=== PATIENT | female | born 1940 ===

== ENCOUNTER 2024-01-07 19:54 | Inpatient (IN) | payer OTHER, SELFPAY ==
[2024-01-07] VITALS (7 sets, daily range): BP systolic 119–172; BP diastolic 57–80; BMI 27.7
[2024-01-07 14:43] LABS: % Basophils 0.3 % (0-2); % Eosinophils 0.2 % (0-6); % Immature Granulocytes 0.5 % (0-0.5); % Lymphocytes 3.2 % (20.5-51.1); % Monocytes 3.7 % (1.7-9.3); % Neutrophils 92.1 % (42.2-75.2); Absolute Lymphocytes 0.3 10^3/uL (1.2-3.4); Absolute Monocytes 0.3 10^3/uL (0.1-0.6); Absolute Neutrophils 8.1 10^3/uL (1.4-6.5); Hematocrit 33.9 % (37.0-47.0); Hemoglobin 10.5 g/dL (12.0-16.0); Mean Corpuscular Hgb 25.2 pg (27.0-31.0); Mean Corpuscular Volume 81.5 fL (81.0-99.0); Mean Platelet Volume 9.2 fL (7.4-10.4); Nucleated Red Blood Cells % 0 %; Platelet Count 207 10^3/uL (130-400); Red Blood Cell Count 4.16 10^6/uL (4.20-5.40); Red Cell Dist. Width 17.2 % (11.5-14.5); White Blood Cell Count 8.8 10^3/uL (4.8-10.8)
[2024-01-07 14:52] LABS: Lactic Acid 0.5 mmol/L (0.7-2.0)
[2024-01-07 14:53] LABS: ALT (SGPT) 14 U/L (0-35); AST (SGOT) 22 U/L (14-36); Albumin 3.9 g/dl (3.5-5.0); Alkaline Phosphatase 67 U/L (38-126); Blood Urea Nitrogen 23 mg/dl (7-17); Calcium 10.4 mg/dl (8.4-10.2); Carbon Dioxide 38 mmol/L (22-30); Chloride 94 mmol/L (98-107); Glucose 119 mg/dl (70-99); Potassium 4.2 mmol/L (3.5-5.1); Sodium 138 mmol/L (135-145); Total Bilirubin 0.6 mg/dl (0.2-1.3); Total Protein 6.5 g/dl (6.3-8.2); eGFR > 60.00
--- NOTE | 2024-01-07 15:56 | ED.GENMED ---
History of Present Illness
General
Chief Complaint: Breathing Problem
Source: patient
Exam Limitations: none
Time Seen by Provider: 01/07/24 15:40
Travel History
Have you had any contact with someone who has COVID-19?: No
Do you have any symptoms of coronavirus? Fever > 100 degrees, chills, cough, shortness of breath, sore throat, loss of taste or smell, muscle aches, or headache?: No
History of Present Illness
History of Present Illness:
83-year-old female presents with increased work of breathing progressively getting worse over the past 2 to 3 weeks. She also notes leg swelling. She has a history of COPD, chronically on 2 L of oxygen, CHF, anemia. 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 She denies chest pain. No recent fever. She notes productive cough.
Phy Exam
Physical Exam
Physical Exam:
General: Somewhat ill-appearing female with slight increased work of breathing
HEENT: Normocephalic atraumatic
Heart: Tachycardic but regular
Lungs: Breath sounds distant but no obvious rales or wheeze
Abdomen: Soft nontender
Extremities: Mild edema bilateral lower extremities
Skin: Warm no rash
Scores
Heart Failure Risk
Heart Failure Risk Score: Not Applicable
Course
Orders/Labs/Results
Orders:
Orders
01/07/24 14:13
Electrocardiogram (*1) Urgent
Reason for Study: Shortness of Breath
01/07/24 14:14
EKG- Treatment ONCE
01/07/24 14:31
Complete Blood Count/With Diff Urgent
Comprehensive Metabolic Panel Urgent
Lactate Level [Lactic Acid] Urgent
Blood Culture Urgent
ERIKA Source: Blood/Venous
Specimen Description:
01/07/24 15:55
CR Chest - 2 Views Urgent
Comment:
Reason For Exam: sob
01/07/24 16:25
NT-proBNP Urgent
Troponin I Urgent
01/07/24 18:40
Azithromycin 500 mg/250 ml [Zithromax Infusion] 500 mg in 250 ml IV NOW
CefTRIAXone [Rocephin] 1,000 mg IV NOW STA
Abnormal Lab Results
01/07/24
14:31
RBC 4.16 L 10^6/uL
(4.20-5.40)
Hgb 10.5 L g/dL
(12.0-16.0)
Hct 33.9 L %
(37.0-47.0)
MCH 25.2 L pg
(27.0-31.0)
MCHC 31.0 L g/dL
(33.0-37.0)
RDW 17.2 H %
(11.5-14.5)
Absolute Neuts (auto) 8.1 H 10^3/uL
(1.4-6.5)
Absolute Lymphs (auto) 0.3 L 10^3/uL
(1.2-3.4)
Neutrophils % 92.1 H %
(42.2-75.2)
Lymphocytes % 3.2 L %
(20.5-51.1)
Chloride 94 L mmol/L
(98-107)
Carbon Dioxide 38 H mmol/L
(22-30)
BUN 23 H mg/dl
(7-17)
Glucose 119 H mg/dl
(70-99)
Lactic Acid 0.5 L mmol/L
(0.7-2.0)
Calcium 10.4 H mg/dl
(8.4-10.2)
01/07/24 14:31
01/07/24 14:31
Vital Signs
Initial and Last Documented VS:
Initial Vital Signs
Temp Pulse Resp BP Pulse Ox
98.4 F 116 20 172/80 96
01/07/24 14:08 01/07/24 14:08 01/07/24 14:08 01/07/24 14:08 01/07/24 14:08
Last Documented Vital Signs
Temp Pulse Resp BP Pulse Ox
98.4 F 98 28 119/57 96
01/07/24 14:08 01/07/24 16:30 01/07/24 16:30 01/07/24 18:00 01/07/24 18:30
MDM/Problems Addressed
Differential Diagnosis Includes:
Increased oxygen demand and increased work of breathing. Differential could include COPD flare versus CHF versus anemia versus pneumonia versus a combination of the above
Patient is requiring more oxygen than usual and is tachycardic and slightly tachypneic at rest. X-ray pending labs pending.
*Critical Care Note
Total Time (30-74mins, 75-104mins- exclusive of procedures): Not Applicable
ED Attending Note
-
Portions of this chart may have been created with voice recognition software.� Occasional wrong word or��sound alike� substitutions may have occurred due to the inherent limitations of voice recognition software.
Discharge Plan
Departure
Patient Disposition: Admit
Date of Disposition: 01/07/24
Time of Disposition: 18:58
Admit to: Telemetry
Presentation/result/management discussed w/ accepting MD/DO: Hospitalist
Discharge Problem:
Respiratory failure
Prescriptions:
No Action
aspirin [Aspir-Low] 81 MG tablet,delayed release (DR/EC)
81 mg PO DAILY
calcium carbonate 500 MG tablet
500 mg PO DAILY
bumetanide 0.5 MG tablet
0.5 mg PO DAILY
albuterol sulfate 1 PUFF HFA aerosol inhaler
1 puff inhalation R Q4HPRN PRN (Reason: wheeze)
rosuvastatin 10 MG tablet
10 mg PO QPM
melatonin-pyridoxine HCl (B6) 1 EACH tablet
0.5 ea PO HS
cholecalciferol (vitamin D3) 1,000 UNITS tablet
1,000 units PO DAILY
nebivolol [Bystolic] 5 MG tablet
5 mg PO DAILY
Prolia 60 MG/ML syringe
60 mg SQ [id number]
roflumilast [Daliresp] 500 MCG tablet
500 mcg PO DAILY
guaifenesin [Mucus Relief ER] 600 MG tablet extended release 12hr
600 mg PO Q12H
B-Complex With B-12 1 EACH tablet
1 ea PO DAILY
sertraline 25 mg Tablet
25 mg PO DAILY
Trelegy Ellipta 100-62.5-25 mcg Blister With Device
1 inh INHALATION DAILY
Referrals:
Augustin Sousa MD [Family Provider] -
Interventions
Interventions:
*Risk Screen - Suicide Last Done: 01/07/24 15:49
*General Assessment Last Done: 01/07/24 15:49
*Neglect/Abuse Screening Last Done: 01/07/24 15:49
ED- Fall Risk Assessment Last Done: 01/07/24 15:49
*ED COVID-19 Vaccine History Last Done: 01/07/24 14:08
ED- Cardiac Assessment Last Done: 01/07/24 15:49
ED- Pulmonary Assessment Last Done: 01/07/24 15:49
Discharge Date and Time
Print Language: SINGAPOREAN
[2024-01-07 17:01] LABS: NT-proBNP 513 pg/ml; Troponin I < 0.012 ng/ml
--- NOTE | 2024-01-07 19:21 | HPS.HSE ---
Family Physician
-
Family Physician: Augustin Sousa
Chief Complaint
-
SoB, need more O2
History of Present Illness
83F HX home O2 dependent COPD, essential HTN seen at ER for evaluation of SoB, increased O2 needs at home.
SoB and worsening hypoxia
- POx dropped to as low as 77 %on 2 L home concentraor
- POx 96% at ER 4L NC at ER
- worsening SoB over 2 weeks
- POS productive cough with colored yellow sputum
- associated tachycardia
- Reports b/l Leg edema
- No fever
Denied exposure or sick contact
Medical History
Past Medical History
Past Medical History: Reports COPD (home O2 4 L ), HTN and Hypercholesterolemia
Past Surgical History: Reports Other
Social History
Tobacco: Former Smoker
Alcohol: None
Drug: None
Family History
Family History: Not pertinent
Allergies / Home Medications
Allergies reflects when Allergies were last updated in [employer].
Home Medications with original date entered in [employer]
Allergy/Medication List:
Allergies
Allergy/AdvReac Type Severity Reaction Status Date / Time
Beta-Blockers Allergy Severe Shortness Verified 01/07/24 14:11
(Beta-Adrenergic Bloc of Breath
Sulfa (Sulfonamide Allergy Mild Hives Verified 01/07/24 14:11
Antibiotics)
Home Medications
albuterol sulfate 90 mcg/actuation aerosol inhaler 1 puff inhalation R Q4HPRN PRN wheeze 04/20/20
aspirin 81 mg tablet,delayed release (Aspir-Low) 81 mg PO DAILY 04/20/20
bumetanide 0.5 mg tablet 0.5 mg PO DAILY 04/20/20
calcium carbonate 500 mg PO DAILY 04/20/20
cholecalciferol (vitamin D3) 25 mcg (1,000 unit) tablet 1,000 units PO DAILY 04/20/20
denosumab 60 mg/mL subcutaneous syringe (Prolia) 60 mg SQ [id number] 04/20/20
guaifenesin 600 mg tablet, extended release 12 hr (Mucus Relief ER) 600 mg PO Q12H 04/20/20
melatonin-pyridoxine HCl (vitamin B6) 3 mg-10 mg tablet 0.5 ea PO HS 04/20/20
nebivolol 5 mg tablet (Bystolic) 5 mg PO DAILY 04/20/20
roflumilast 500 mcg tablet (Daliresp) 500 mcg PO DAILY 04/20/20
rosuvastatin 10 mg tablet 10 mg PO QPM 04/20/20
vitamins B1 2.5 mg-B2 2.5 mg-niacin 5 mg-B12 100 mcg-protease tablet (B-Complex With B-12) 1 ea PO DAILY 04/20/20
fluticasone fur. 100 mcg-umeclid 62.5 mcg-vilant 25 mcg inhalat.powder (Trelegy Ellipta) 1 inh inhalation DAILY 08/28/22
sertraline 25 mg tablet 25 mg PO DAILY 08/28/22
Review of Systems
-
Constitutional: Reports No Symptoms
EENT: Reports No Symptoms
Respiratory: Reports See HPI and Trouble Breathing
Cardiac: Reports No Symptoms
Abdomen/GI: Reports No Symptoms
: Reports No Symptoms
Musculoskeletal: Reports No Symptoms
Skin: Reports No Symptoms
Neurological: Reports No Symptoms
Endocrine: Reports No Symptoms
Hematologic/Lymphatic: Reports No Symptoms
Psych: Reports No Symptoms
Physical Exam
Vital Signs
Vital Signs
Temp Pulse Resp BP Pulse Ox
98.4 F 98 28 119/57 96
01/07/24 14:08 01/07/24 16:30 01/07/24 16:30 01/07/24 18:00 01/07/24 18:30
Physical Exam
General: Well Developed, Well Nourished, No Apparent Distress, Comfortable and Respiratory Distress (мария mild, tachypnic )
HEENT: NormoCephalic, Anicteric, Moist mucous membranes and Atraumatic
Respiratory: Non Labored Respirations; No Wheezes or Rhonchi
Cardiac: S1/S2, Regular Rhythm and Tachycardia
GI: Soft, Non Tender and Non Distended
Rectal: Deferred by Provider
Genito-urinary: Deferred by me
Skin: Warm and Dry
Neuro: AO x 3
Psych: Calm
Laboratory Results
-
01/07/24 14:31
01/07/24 14:31
Laboratory Results
Lactic Acid 0.5 mmol/L (0.7-2.0) L 01/07/24 14:31
Total Bilirubin 0.6 mg/dl (0.2-1.3) 01/07/24 14:31
AST 22 U/L (14-36) 01/07/24 14:31
ALT 14 U/L (0-35) 01/07/24 14:31
Alkaline Phosphatase 67 U/L (38-126) 01/07/24 14:31
Troponin I < 0.012 ng/ml 01/07/24 16:25
Data Reviewed
-
Diagnostic Radiology: Report Reviewed by me
Lab Data: Labs Reviewed by me
Impression/Plan
-
Reviewed VS: Afebrile tachy cardia 100s BP 125/ 68 RR 20s POX 96 on 4 L
Data
nl WCC
Hgb 10.5
Cl 94
CO2 38 - bl is 40
nl Cr eGFR > 60
NEG LA
NEG TPNI
proBNP 513
Pending PCT
CXR
Mild bibasilar opacity, unfortunately without prior study cannot differentiate acute process such as subsegmental atelectasis and/or pneumonia from chronic changes.
NO PRIOR hospitalist admission:
ASSESSMENT & PLAN
Pending Rx reconciliation
Acute on chronic hypoxic RF
Worsening baseline hypercarbia suspect chronic CO2 retension: stable MS
Suspect b/l basilar PNA
Productive cough
Ex smoker
- afebrile , nl WCC
- check Covid
- check PCT
- BCx sent
- agree with IV CFTZ and PO Z max
- Nebs PRN
- O2 to titrate POx above 93
- ABG if any altered MS
- cont all OP Meds
Essential HTN
- stable
- cont. Bystolic
HLD-
on Rosuvastatin
Depression
- on Sertraline
DVT Px: LMWH
Code: full
IP MS
[2024-01-07] MEDS: ZITHROMAX INFUSION 250 IV (19:22)
[2024-01-07] MEDS: ROCEPHIN 1000 MG IV (19:23)
[2024-01-07 20:38] LABS: COVID-19 Antigen Negative (Negative)
[2024-01-07 20:45] LABS: Procalcitonin < 0.05 ng/ml (0.0-0.25)
[2024-01-07] MEDS: MUCINEX 600 MG PO (21:46)
[2024-01-07] MEDS: CRESTOR 10 MG PO (22:48)
[2024-01-07] MEDS: DUONEB 3 ML INH (23:33)
[2024-01-08] MEDS: TESSALON PERLES 100 MG PO (02:02)
[2024-01-08 06:00] VITALS: BMI 27.5
[2024-01-08 07:00] VITALS: BP 165/83
[2024-01-08 07:17] LABS: % Eosinophils 1.6 % (0-6); % Immature Granulocytes 0.2 % (0-0.5); % Lymphocytes 14.3 % (20.5-51.1); % Monocytes 8.8 % (1.7-9.3); % Neutrophils 74.1 % (42.2-75.2); Absolute Basophils 0.1 10^3/uL (0-0.2); Absolute Eosinophils 0.1 10^3/uL (0-0.7); Absolute Lymphocytes 0.7 10^3/uL (1.2-3.4); Absolute Monocytes 0.4 10^3/uL (0.1-0.6); Absolute Neutrophils 3.6 10^3/uL (1.4-6.5); Hematocrit 29.5 % (37.0-47.0); Hemoglobin 9.3 g/dL (12.0-16.0); Mean Corp Hgb Conc. 31.5 g/dL (33.0-37.0); Mean Corpuscular Hgb 26.1 pg (27.0-31.0); Mean Corpuscular Volume 82.6 fL (81.0-99.0); Nucleated Red Blood Cells % 0 %; Red Blood Cell Count 3.57 10^6/uL (4.20-5.40); White Blood Cell Count 4.9 10^3/uL (4.8-10.8)
--- NOTE | 2024-01-08 07:23 | PTCARENOTE ---
Patient arrived on unit @2049 via stretcher from ED, ambulate from stretcher to bed. Patient AAOx3, denies any pain or discomfort, KEBEDE, 4LO2 via nsal cannula. Skin assessment completed, oriented to unit, call srivastava within reach.
[2024-01-08] MEDS: SPIRIVA RESPIMAT 2.5 MCG 2 PUFF INH (07:27)
[2024-01-08] MEDS: SYMBICORT 80/4.5 MCG INHALER 2 PUFF INH ×2 (07:27→19:25)
[2024-01-08 07:50] LABS: Blood Urea Nitrogen 23 mg/dl (7-17); Calcium 9.3 mg/dl (8.4-10.2); Carbon Dioxide 30 mmol/L (22-30); Chloride 102 mmol/L (98-107); Estimated Creatinine Clearance 72 ml/min; Glucose 93 mg/dl (70-99); Potassium 4.8 mmol/L (3.5-5.1); Sodium 139 mmol/L (135-145); eGFR > 60.00
[2024-01-08] MEDS: ZOLOFT 25 MG PO (08:13)
[2024-01-08] MEDS: ASPIR LOW (ENTERIC COATED) 81 MG PO (08:13)
[2024-01-08] MEDS: MUCINEX 600 MG PO ×2 (08:13→21:26)
[2024-01-08] MEDS: TYLENOL 650 MG PO (08:13)
[2024-01-08] MEDS: BYSTOLIC 5 MG PO (08:14)
[2024-01-08] MEDS: BUMEX 0.5 MG PO (08:15)
[2024-01-08 09:54] VITALS: BP 127/56; PULSE 81; O2SAT 96
--- NOTE | 2024-01-08 10:03 | CON.PUL ---
Consultation
Consultation Request
Date/Time Consultation Requested: 01/08/2024-8 AM
Date/Time Consultation Performed: 01/08/2024-8:15 AM
Requesting Provider: Hospitalist
Performing Provider: Dr. Arroyo
Reason for Consultation: Shortness of breath
Medical History
-
Chief Complaint: Shortness of breath
History of Present Illness:
83-year-old female with underlying severe COPD followed by Dr. Maza presented with increasing shortness of breath and COPD exacerbation-pulmonary consulted for COPD exacerbation 01/08/2024. She does report feeling somewhat better than
yesterday. She is chronically on 2.5 L of oxygen and 4 L with exertion. She has significant dyspnea exertion, wheezing, chest congestion, productive cough, and offers no complaints of reflux, hemoptysis, abdominal pain, nausea, vomiting or
increasing lower extremity swelling.
Past Medical History
Past Medical History: None (COPD-oxygen dependent-suspect Gold stage IV. Former pnnfxe-28-cezk-year quit 50 years old. Hypertension. Hyperlipidemia.)
Social History
Tobacco: Former Smoker (00-lfgd-agrp-2 packs a day for 30 years-quit 50 years old)
Alcohol: None
Drug: None
Living: With Family
Occupational Exposures: No known asbestos exposure
Environmental Exposures: No known tuberculosis exposure
Family History
Family History: Reviewed & Not Pertinent
Allergies / Home Medications
Allergies
Allergy/AdvReac Type Severity Reaction Status Date / Time
Beta-Blockers Allergy Shortness Verified 01/07/24 20:55
(Beta-Adrenergic Bloc of Breath
Sulfa (Sulfonamide Allergy Hives Verified 01/07/24 20:55
Antibiotics)
Home Medications
�Medication �Instructions �Recorded �Confirmed �Last Taken �Type
albuterol sulfate 90 mcg/actuation 2 puff inhalation R QIDPRN PRN 04/20/20 01/07/24 Unknown History
aerosol inhaler sob/wheeze
denosumab 60 mg/mL subcutaneous 60 mg SQ [id number] 04/20/20 01/07/24 1 Week Ago History
syringe (Prolia) ~12/31/23
guaifenesin 600 mg tablet, 600 mg PO QPM 04/20/20 01/07/24 01/06/24 History
extended release 12 hr (Mucus
Relief ER)
nebivolol 5 mg tablet (Bystolic) 5 mg PO DAILY 04/20/20 01/07/24 01/07/24 History
roflumilast 500 mcg tablet 500 mcg PO DAILY 04/20/20 01/07/24 01/07/24 History
(Daliresp)
rosuvastatin 10 mg tablet 10 mg PO QPM 04/20/20 01/07/24 01/06/24 History
fluticasone fur. 100 mcg-umeclid 1 inh inhalation R DAILY 08/28/22 01/07/24 01/07/24 History
62.5 mcg-vilant 25 mcg
inhalat.powder (Trelegy Ellipta)
sertraline 25 mg tablet 25 mg PO DAILY 08/28/22 01/07/24 01/07/24 History
albuterol sulfate 2.5 mg/3 mL 2.5 mg inhalation R BID@0700,1500 01/07/24 01/07/24 01/07/24 History
(0.083 %) solution for nebulization
aspirin 81 mg tablet,delayed 81 mg PO DAILY 01/07/24 01/07/24 01/07/24 History
release
bumetanide 1 mg tablet 0.5 mg PO DAILY 01/07/24 01/07/24 01/07/24 History
cyanocobalamin (vitamin B-12) 2,500 mcg PO DAILY 01/07/24 01/07/24 01/07/24 History
2,500 mcg sublingual tablet
(Vitamin B-12)
guaifenesin 600 mg tablet, 1,200 mg PO DAILY 01/07/24 01/07/24 01/07/24 History
extended release 12 hr (Mucinex)
melatonin 0.5 tab PO HS 01/07/24 01/07/24 01/06/24 History
prednisone 10 mg tablet 10 mg PO DAILY 01/07/24 01/07/24 01/07/24 History
Review of Systems
-
Unable to Obtain full review of systems at this time due to: Other (Per HPI)
Vitals / Labs / Diagnostic Testing
Vital Signs
Temp Pulse Resp BP Pulse Ox
98.0 F 98 18 165/83 99
01/08/24 07:00 01/08/24 08:15 01/08/24 07:32 01/08/24 08:15 01/08/24 07:32
Lab Data
01/08/24 06:17
01/08/24 06:17
Microbiology
01/07/24 20:06 Nasal Swab Influenza Types A & B (VIANNEY) - Final
Negative for Influenza A & B, NAAT
Negative results must be combined with clinical observations
and patient history.
Nucleic Acid Amplification test (NAAT)performed on the
[employer] platform.
Diagnostic Testing:
Physical Exam
-
Exam:
Well-nourished and well-developed in no apparent distress
HEENT-atraumatic, normocephalic
Neck-supple, no JVD, no bruit
Heart regular with systolic murmur
Chest with diminished breath sounds, hyperinflation, prolonged expiratory time, expiratory wheezes and rare basilar crackle
Back-no tenderness
Abdomen-soft, nontender, nondistended, no hepatosplenomegaly
Extremities-no cyanosis, clubbing, trace lower extremity edema
Integument-intact, no rashes, lesions or ecchymosis
Neurology-alert and oriented, nonfocal motor and sensory exam
Assessment
-
83-year-old female with underlying severe COPD followed by Dr. Maza presented with increasing shortness of breath and COPD exacerbation-pulmonary consulted for COPD exacerbation 01/08/2024.
Assessment
Shortness of breath related to COPD with acute exacerbation
COPD-Gold stage IV, oxygen dependent with acute exacerbation
Qewgwo-bgedpnderh-bupexgolmt 9.3
Bronchitis-procalcitonin negative
Conditions present prior to admission:
COPD-oxygen dependent-suspect Gold stage IV.
Former atnwnu-89-genj-year quit 50 years old.
Hypertension.
Hyperlipidemia.
Plan
Patient requires admission for severe COPD exacerbation
Supplemental oxygen as needed
Consider ABG
BiPAP if needed
High flow oxygen if appropriate
Duonebs
Symbicort and Spiriva initiated
Pulmicort nebulizers
Mucolytic's
Decadron
Incentive spirometry
Acapella
Consider vest if difficulties mobilizing secretions
Consider chest physiotherapy if difficulties mobilizing secretions
Check cultures
Empiric antibiotics if acute bacterial bronchitis or acute bacterial lower respiratory tree infection is suspected-azithromycin and ceftriaxone initiated
Procalcitonin negative
Monitor leukocytosis
Follow hemoglobin
Transfuse as needed
Heme test stools
Monitor blood sugars
Insulin supplementation as needed
DVT prophylaxis recommended-on Lovenox
GI prophylaxis recommended if on steroids for prolonged period
Early nutrition
Early mobilization
Reviewed with nursing and primary team
Outpatient pulmonary vrtrxr-bm-uheniadyx follows with Dr. Maza-will be retiring-maintained on nebulizers, Trelegy, oxygen 2.5 L rest, 4 L exertion, has POC-would like transfer care locally
Suspect patient has COPD/asthma overlap-May be a candidate for Biologics such as Dupixent
Diagnostic data:
Chest x-ray 01/07/2024-mild bibasilar opacifications subsegmental atelectasis or pneumonia
Data Reviewed
-
EKG: Report reviewed by me
Radiology: Image personally visualized and interpreted and Report reviewed by me
Medical Tests (Nuc Med, Echo etc): Report reviewed by me
Labs: Labs reviewed by me
Old Records: Reviewed
Total Time Spent with Patient (in minutes): 65
--- NOTE | 2024-01-08 10:38 | W.PN.HOSP.TC ---
Today's Communication/Plan
-
.
Assessment / Plan
Assessment / Plan
Physical Exam
General: Not in distress, on nasal O2
HEENT: Normocephalic, Anicteric, Moist mucous membranes and Atraumatic
Respiratory: limited with some rhonchi
Cardiac: S1/S2,
GI: Soft, Non Tender and Non Distended
Rectal: No rectal bleeding
Genito-urinary: No Turcios
Skin: Warm and Dry
Neuro: AO x 3, she followed commands
Psych: Calm
Acute on chronic hypoxic RF with higher O2 need due to acute COPD exacerbation/ COPD-Gold stage IV, oxygen dependent
Productive cough
Ex smoker
- afebrile , nl WCC
- Negative Covid & flu
- Chest x ray on admission c/w Mild bibasilar opacity
- BCx are pending
- Start IV steroid , titrate down O2 need as tolerated.
- Short course of IV CFTZ and PO Z max
- Nebs PRN
- O2 to titrate POx above 93
- Appreciate pulmonary input
# Headache
No blurred vision, likely tension type
will give Tylenol
# Hypercalcemia, resolved.
#Essential HTN
- Uncontrolled
will increase nebivolol
#HLD-
on Rosuvastatin
# Depression
- on Sertraline
# Zzmjqx-qmymxibcvq-yavwvyuazp 9.3
# hx of Bronchitis-procalcitonin negative
Total time spent to see the patient, examine the patient on the floor, review data and lab results, discuss treatment plan with patient, daughter, nursing staff around 55 minutes
Anticipated Discharge: > 48 hours
Subjective/Interval History
-
Date of Service: January 08, 2024
Feels headache this morning, she did not sleep well due to noise from her roommate
No chest pain
Still same sob
Objective Data
-
Labs:
Laboratory Results
01/08/24
06:17
WBC 4.9
Hgb 9.3 L
Hct 29.5 L
Plt Count
Sodium 139
Potassium 4.8
Chloride 102
Carbon Dioxide 30
BUN 23 H
Creatinine 0.6
Glucose 93
Calcium 9.3
Vital Signs:
Vital Signs
Temp Pulse Resp BP Pulse Ox
98.0 F 98 18 165/83 99
01/08/24 07:00 01/08/24 08:15 01/08/24 07:32 01/08/24 08:15 01/08/24 07:32
I&O
01/07/24 01/08/24 01/09/24
06:59 06:59 06:59
Intake Total 480 / 480
Balance 480 / 480
[2024-01-08] MEDS: DECADRON 4 MG IV ×2 (11:52→18:02)
--- NOTE | 2024-01-08 12:23 | CM ---
Reviewed chart, met with patient to obtain information for assessment. Patient stated that she lives in [facility] level [facility] with one step to enter. She lives with her spouse. She described herself as in need of supervision with all ADLs, personal care,
dressing, bathing and toileting. Her spouse assists with her dressing at times. He supervises her. She and spouse take turns doing the cooking, cleaning, laundry and prescription benefit specialist.
Patient denied any other DME besides the walker.
She stated that she has VN services but it was not clear if she is current as she stated that they come out sporadically. She relayed that the agency was, [facility].
Patient has been to rehab in the past at [facility]. She denied wanting to go to a SNF post this admission.
Patient has a prescription plan and uses, [facility] in [place] for all of her medications.
Her PCP is, Dr. Sousa.
Plan: Case management will continue to follow and assist with discharge planning. Patient would like to return home when stable for discharge.
[2024-01-08 14:34] VITALS: BP 109/74
[2024-01-08] MEDS: CRESTOR 10 MG PO (17:56)
[2024-01-08] MEDS: LOVENOX 40 MG SC (17:56)
[2024-01-08] MEDS: DUONEB 3 ML INH (18:14)
[2024-01-08] MEDS: STERILE WATER FOR INJECTION 10 ML IV (19:50)
[2024-01-08] MEDS: ROCEPHIN 1000 MG IV (19:50)
[2024-01-08] MEDS: ZITHROMAX 500 MG PO (19:50)
[2024-01-08 23:20] VITALS: BP 122/67
[2024-01-09] MEDS: DECADRON 4 MG IV ×3 (03:19→19:51)
[2024-01-09 06:00] VITALS: BMI 27.5
[2024-01-09 07:00] VITALS: BP 124/59
[2024-01-09] MEDS: BUMEX 0.5 MG PO (08:41)
[2024-01-09] MEDS: ZOLOFT 25 MG PO (08:41)
[2024-01-09] MEDS: BYSTOLIC 5 MG PO (08:41)
[2024-01-09] MEDS: ASPIR LOW (ENTERIC COATED) 81 MG PO (08:41)
[2024-01-09] MEDS: SYMBICORT 80/4.5 MCG INHALER 2 PUFF INH (08:49)
[2024-01-09] MEDS: SPIRIVA RESPIMAT 2.5 MCG 2 PUFF INH (08:49)
--- NOTE | 2024-01-09 09:11 | W.PN.HOSP.TC ---
Today's Communication/Plan
-
Possible dc over the weekend
Assessment / Plan
Assessment / Plan
Physical Exam
General: Not in distress, on nasal O2
HEENT: Normocephalic, Anicteric, Moist mucous membranes and Atraumatic
Respiratory: limited with less rhonchi. I did not hear wheezes.
Cardiac: S1/S2,
GI: Soft, Non Tender and Non Distended
Rectal: No rectal bleeding
Genito-urinary: No Turcios
Skin: Warm and Dry
Neuro: AO x 3, she followed commands
Psych: Calm
Acute on chronic hypoxic RF with higher O2 need due to acute COPD exacerbation/ COPD-Gold stage IV, oxygen dependent
Productive cough
Ex smoker
- afebrile , nl WCC
- Negative Covid & flu
- Chest x ray on admission c/w Mild bibasilar opacity
- BCx are pending
- Start IV steroid , titrate down O2 need as tolerated.
- Short course of IV CFTZ and PO Z max
- Nebs PRN , Stop Symbicort & Spiriva, change breathing regimen to Pulmicort and DuoNeb Neb ATC . Pt not sure she could handle doing the inhalation technique well at home. She will benefit from Neb at home, will dc on DuoNeb
- O2 to titrate POx above 93
- Appreciate pulmonary input
# Headache
resolved.
# Hypercalcemia, resolved.
#Essential HTN
- Better controlled, keep same dose of Nebivolol
#HLD-
on Rosuvastatin
# Depression
- on Sertraline
# Uccswq-gpnpybmatt-mzfdysbmso 9.3
# hx of Bronchitis-procalcitonin negative
Total time spent to see the patient, examine the patient on the floor, review data and lab results, discuss treatment plan with patient, daughter, nursing staff around 55 minutes
Anticipated Discharge: 24 - 48 hours
Subjective/Interval History
-
Date of Service: January 09, 2024
She feels better today
Less cough and sob
Objective Data
-
Vital Signs:
Vital Signs
Temp Pulse Resp BP Pulse Ox
97.9 F 77 17 124/59 96
01/09/24 07:00 01/09/24 07:00 01/09/24 07:00 01/09/24 07:00 01/09/24 07:00
I&O
01/08/24 01/09/24 01/10/24
06:59 06:59 06:59
Intake Total 480 / 480 760 / 760
Balance 480 / 480 760 / 760
--- NOTE | 2024-01-09 09:55 | W.PN.PUL.V3 ---
Today's Communication / Plan
-
.
Wean oxygen.
Increase activity.
Decrease Decadron
Assessment
-
83-year-old female with underlying severe COPD followed by Dr. Maza presented with increasing shortness of breath and COPD exacerbation-pulmonary consulted for COPD exacerbation 01/08/2024.
Assessment
Shortness of breath related to COPD with acute exacerbation
COPD-Gold stage IV, oxygen dependent with acute exacerbation
Tscptx-kyvvxngnkb-vsdjxmtfqz 9.3
Bronchitis-procalcitonin negative
Conditions present prior to admission:
COPD-oxygen dependent-suspect Gold stage IV.
Former cyuyvc-99-crdo-year quit 50 years old.
Hypertension.
Hyperlipidemia.
Plan
Overall, her pulmonary status has improved
Supplemental oxygen as needed.
Has not needed a bipap
Duonebs
Symbicort and Spiriva initiated
Pulmicort nebulizers
Mucolytic's
Decadron-decreased to 4 mg IV every 12 hours-Consider changing to prednisone tomorrow
Incentive spirometry
Acapella
Consider vest if difficulties mobilizing secretions
Consider chest physiotherapy if difficulties mobilizing secretions
Check cultures-unable to produce sputum
Empiric antibiotics if acute bacterial bronchitis or acute bacterial lower respiratory tree infection is suspected-azithromycin and ceftriaxone initiated
Procalcitonin negative
Monitor leukocytosis
Follow hemoglobin-Currently 9.3
Transfuse as needed
Heme test stools
Monitor blood sugars
Insulin supplementation as needed
DVT prophylaxis recommended-on Lovenox
GI prophylaxis recommended if on steroids for prolonged period
Early nutrition
Early mobilization
Reviewed with nursing and primary team
Outpatient pulmonary wdjqhi-qy-fjvnbygus follows with Dr. Maza-will be retiring-maintained on nebulizers, Trelegy, oxygen 2.5 L rest, 4 L exertion, has POC-would like transfer care locally
Suspect patient has COPD/asthma overlap-May be a candidate for Biologics such as Dupixent
Diagnostic data:
Chest x-ray 01/07/2024-mild bibasilar opacifications subsegmental atelectasis or pneumonia
Subjective Data
-
Date of Service:
Date of Service: January 09, 2024
Chief Complaint: Pulmonary Follow Up and Dyspnea Follow Up
Subjective:
Overall feels better, less shortness of breath with exertion, less wheezing, no cough, chest pain or abdominal pain
Review of Systems
General: Other ( per HPI)
Objective Data
Data Reviewed
Vital Signs / I&O:
Vital Signs
Temp Pulse Resp BP Pulse Ox
97.9 F 86 16 124/59 95
01/09/24 07:00 01/09/24 08:49 01/09/24 08:49 01/09/24 07:00 01/09/24 08:49
Intake and Output
01/08/24 01/09/24 01/10/24
06:59 06:59 06:59
Intake Total 480 / 480 760 / 760
Balance 480 / 480 760 / 760
SaO2: 95
Nasal Cannula flow liters per minute: 4
Physical Exam
General: Respiratory Distress (n) and Comfortable
HEENT: Normocephalic, Anicteric and Moist Mucous Membranes
Cardiovascular: Regular Rhythm and Murmur
Respiratory: Clear ( prolonged expiratory time and overall diminished breath sounds), Wheeze ( forced expiratory), Crackles (n), Non-Labored Respirations, Accessory Resp Muscle Use (n) and Stridor (n)
GI: Soft, Non Distended and Non Tender
Neurology: Awake, Alert and No Motor Deficits
Skin: Warm, Good Color, Cyanosis (n) and Jaundice (n)
Labs/Micro/Reports
Lab Data
01/08/24 06:17
01/08/24 06:17
Microbiology
01/08/24 06:17 Nose MRSA Screen - Final
No Methicillin Resistant Staphylococcus aureus isolated.
01/07/24 14:31 Blood/Venous Blood Culture - Preliminary
No Growth in 24 hours- Final report to follow
01/07/24 20:06 Nasal Swab Influenza Types A & B (VIANNEY) - Final
Negative for Influenza A & B, NAAT
Negative results must be combined with clinical observations
and patient history.
Nucleic Acid Amplification test (NAAT)performed on the
[employer] platform.
[2024-01-09] MEDS: MUCINEX 600 MG PO ×2 (10:07→20:55)
[2024-01-09] MEDS: DUONEB 3 ML INH ×3 (11:18→20:04)
[2024-01-09 15:00] VITALS: BP 123/59
[2024-01-09 16:32] VITALS: BP 123/59; PULSE 71; O2SAT 96
[2024-01-09] MEDS: CRESTOR 10 MG PO (17:28)
[2024-01-09] MEDS: LOVENOX 40 MG SC (17:28)
[2024-01-09] MEDS: ROCEPHIN 1000 MG IV (19:51)
[2024-01-09] MEDS: ZITHROMAX 500 MG PO (19:51)
[2024-01-09] MEDS: STERILE WATER FOR INJECTION 10 ML IV (19:52)
[2024-01-09] MEDS: PULMICORT 0.5 MG INH (20:04)
[2024-01-09 23:09] VITALS: BP 113/51
[2024-01-10 06:00] VITALS: BMI 27.7
[2024-01-10 07:15] VITALS: BP 149/69
[2024-01-10] MEDS: DUONEB 3 ML INH ×4 (08:08→19:36)
[2024-01-10] MEDS: PULMICORT 0.5 MG INH ×2 (08:08→19:36)
[2024-01-10] MEDS: ZOLOFT 25 MG PO (08:32)
[2024-01-10] MEDS: PROTONIX 40 MG PO (08:32)
[2024-01-10] MEDS: BUMEX 0.5 MG PO (08:32)
[2024-01-10] MEDS: BYSTOLIC 5 MG PO (08:32)
[2024-01-10] MEDS: ASPIR LOW (ENTERIC COATED) 81 MG PO (08:33)
[2024-01-10] MEDS: DECADRON 4 MG IV (08:33)
--- NOTE | 2024-01-10 10:55 | W.PN.HOSP.TC ---
Today's Communication/Plan
-
dc planning
Assessment / Plan
Assessment / Plan
Physical Exam
General: Not in distress, on nasal O2
HEENT: Normocephalic, Anicteric, Moist mucous membranes and Atraumatic
Respiratory: limited with less rhonchi. I did not hear wheezes.
Cardiac: S1/S2,
GI: Soft, Non Tender and Non Distended
Rectal: No rectal bleeding
Genito-urinary: No Turcios
Skin: Warm and Dry
Neuro: AO x 3, she followed commands
Psych: Calm
Acute on chronic hypoxic RF with higher O2 need due to acute COPD exacerbation/ COPD-Gold stage IV, oxygen dependent
Productive cough
Ex smoker
- afebrile , nl WCC
- Negative Covid & flu
- Chest x ray on admission c/w Mild bibasilar opacity
- BCx are pending
- Started IV steroid , change to BID
- Short course of IV CFTZ and PO Z max
- Nebs PRN , Stopped Symbicort & Spiriva, changed breathing regimen to Pulmicort and DuoNeb Neb ATC . Pt not sure she could handle doing the inhalation technique well at home. She will benefit from Neb at home, will dc on DuoNeb
- O2 to titrate POx above 93
- Appreciate pulmonary input
# Headache
resolved.
# Hypercalcemia, resolved.
#Essential HTN
- Better controlled, keep same dose of Nebivolol
#HLD-
on Rosuvastatin
# Depression
- on Sertraline
# Dedeqz-yjywpxbjyk-fukxheubvu 9.3
# hx of Bronchitis-procalcitonin negative
Total time spent to see the patient, examine the patient on the floor, review data and lab results, discuss treatment plan with patient, daughter, nursing staff around 57 minutes
Anticipated Discharge: Within 24 hours
Subjective/Interval History
-
Date of Service: January 10, 2024
She feels better
Objective Data
-
Vital Signs:
Vital Signs
Temp Pulse Resp BP Pulse Ox
97.6 F 73 18 149/69 99
01/10/24 07:15 01/10/24 07:15 01/10/24 07:15 01/10/24 07:15 01/10/24 07:15
I&O
01/09/24 01/10/24 01/11/24
06:59 06:59 06:59
Intake Total 760 / 760 600 / 600
Balance 760 / 760 600 / 600
[2024-01-10] MEDS: MUCINEX 600 MG PO ×2 (11:15→20:50)
[2024-01-10 15:20] VITALS: BP 129/68
--- NOTE | 2024-01-10 16:00 | W.PN.PUL3 ---
Today's Communication / Plan
-
Continue nebulizer therapy while in the hospital
Transition to prednisone
If cultures remain negative, transition to oral antibiotics tomorrow
Physical therapy as tolerated
Continue oxygen supplementation
Assessment
-
83-year-old female with underlying severe COPD followed by Dr. Maza presented with increasing shortness of breath and COPD exacerbation-pulmonary consulted for COPD exacerbation 01/08/2024.
Assessment
Shortness of breath related to COPD with acute exacerbation
COPD-Gold stage IV, oxygen dependent with acute exacerbation
Mxmeeh-plefqumtpv-griodakbow 9.3
Bronchitis-procalcitonin negative
Conditions present prior to admission:
COPD-oxygen dependent-suspect Gold stage IV.
Former juonno-40-hfuu-year quit 50 years old.
Hypertension.
Hyperlipidemia.
Plan
Slowly improving. Continues to have minimal expiratory wheezing.
Oxygen supplementation at baseline
Patient significantly deconditioned.
Supplemental oxygen as needed.
Continue nebulizer-DuoNeb/Pulmicort.
Usually on Trelegy in outpx
-
Mucolytic's
Discontinue Decadron 01/10/2024. Transition to prednisone 40 mg taper by 10 mg every 72 hours to off.
Incentive spirometry
Acapella
-
Check cultures-unable to produce sputum
Empiric antibiotics if acute bacterial bronchitis or acute bacterial lower respiratory tree infection is suspected-azithromycin and ceftriaxone initiated
If all cultures negative, may complete a course of azithromycin for 5 days.
Procalcitonin negative
Follow hemoglobin-Currently 9.3
Transfuse as needed
Heme test stools
Monitor blood sugars, particularly on high-dose of steroids.
Insulin supplementation as needed
Significantly deconditioned: Continue physical therapy and Occupational Therapy.
DVT prophylaxis recommended-on Lovenox
GI prophylaxis recommended if on steroids for prolonged period
Reviewed with nursing and primary team
Outpatient pulmonary jodsuz-mx-kalvehycq follows with Dr. Maza-will be retiring-maintained on nebulizers, Trelegy, oxygen 2.5 L rest, 4 L exertion, has POC-would like transfer care locally
Suspect patient has COPD/asthma overlap-May be a candidate for Biologics such as Dupixent

Diagnostic data:
Chest x-ray 01/07/2024-mild bibasilar opacifications subsegmental atelectasis or pneumonia
Subjective Data
-
Date of Service:
Date of Service: January 10, 2024
Chief Complaint: Pulmonary Follow Up and Dyspnea Follow Up
Subjective:
Feels better.
Patient feels significantly debilitated
Occasional cough and phlegm production.
Denies hemoptysis.
Review of Systems
Cardiopulmonary: Dyspnea, Dyspnea on Exertion and Cough
GI: Abdominal Pain (n) and Nausea (n)
Objective Data
Data Reviewed
Vital Signs / I&O / Oxygen:
Vital Signs
Temp Pulse Resp BP Pulse Ox
97.6 F 82 15 149/69 91
01/10/24 07:15 01/10/24 15:26 01/10/24 15:26 01/10/24 07:15 01/10/24 15:26
Intake and Output
01/09/24 01/10/24 01/11/24
06:59 06:59 06:59
Intake Total 760 / 760 600 / 600
Balance 760 / 760 600 / 600
SaO2 91
Nasal Cannula flow liters per 2
minute
Physical Exam
General: Respiratory Distress (n), Comfortable and Other ( Able to speak in full sentences)
HEENT: Normocephalic, Anicteric and Moist Mucous Membranes
Cardiovascular: Regular Rhythm and Murmur
Respiratory: Clear ( prolonged expiratory time and overall diminished breath sounds), Wheeze ( forced expiratory), Crackles (n), Non-Labored Respirations, Accessory Resp Muscle Use (n) and Stridor (n)
GI: Soft, Non Distended and Non Tender
Neurology: Awake, Alert and No Motor Deficits
Skin: Warm, Good Color, Cyanosis (n) and Jaundice (n)
Labs/Micro/Reports
Lab Data
01/08/24 06:17
01/08/24 06:17
Microbiology
01/07/24 14:31 Blood/Venous Blood Culture - Preliminary
No Growth in 72 hours- Final report to follow
01/08/24 06:17 Nose MRSA Screen - Final
No Methicillin Resistant Staphylococcus aureus isolated.
01/07/24 20:06 Nasal Swab Influenza Types A & B (VIANNEY) - Final
Negative for Influenza A & B, NAAT
Negative results must be combined with clinical observations
and patient history.
Nucleic Acid Amplification test (NAAT)performed on the
[employer] platform.
[2024-01-10 16:02] VITALS: PULSE 85; O2SAT 92
[2024-01-10] MEDS: LOVENOX 40 MG SC (17:47)
[2024-01-10] MEDS: CRESTOR 10 MG PO (17:48)
[2024-01-10] MEDS: ZITHROMAX 500 MG PO (20:50)
[2024-01-10] MEDS: ROCEPHIN 1000 MG IV (20:50)
[2024-01-10] MEDS: STERILE WATER FOR INJECTION 10 ML IV (20:50)
[2024-01-10 23:10] VITALS: BP 145/68
[2024-01-11 06:00] VITALS: BMI 27.8
[2024-01-11 07:00] VITALS: BP 104/59
[2024-01-11] MEDS: PULMICORT 0.5 MG INH ×2 (08:17→19:35)
[2024-01-11] MEDS: DUONEB 3 ML INH ×4 (08:17→19:35)
[2024-01-11] MEDS: DELTASONE 40 MG PO (09:02)
[2024-01-11] MEDS: BUMEX 0.5 MG PO (09:03)
[2024-01-11] MEDS: OMNICEF 300 MG PO ×2 (09:03→21:02)
[2024-01-11] MEDS: PROTONIX 40 MG PO (09:03)
[2024-01-11] MEDS: MUCINEX 600 MG PO ×2 (09:03→21:02)
[2024-01-11] MEDS: BYSTOLIC 5 MG PO (09:03)
[2024-01-11] MEDS: ZOLOFT 25 MG PO (09:04)
[2024-01-11] MEDS: ASPIR LOW (ENTERIC COATED) 81 MG PO (09:04)
[2024-01-11 09:48] VITALS: PULSE 98; O2SAT 96
[2024-01-11 10:35] VITALS: PULSE 98; O2SAT 96
--- NOTE | 2024-01-11 12:42 | W.PN.HOSP.TC ---
Today's Communication/Plan
-
dc planning
Assessment / Plan
Assessment / Plan
Physical Exam
General: Not in distress, on nasal O2
HEENT: Normocephalic, Anicteric, Moist mucous membranes and Atraumatic
Respiratory: limited with less rhonchi. I did not hear wheezes.
Cardiac: S1/S2,
GI: Soft, Non Tender and Non Distended
Rectal: No rectal bleeding
Genito-urinary: No Turcios
Skin: Warm and Dry
Neuro: AO x 3, she followed commands
Psych: Calm
Acute on chronic hypoxic RF with higher O2 need due to acute COPD exacerbation/ COPD-Gold stage IV, oxygen dependent
Productive cough
Ex smoker
She is doing better. She reports less cough.
- afebrile , nl WCC
- Negative Covid & flu
- BCx are no growth.
- Started IV steroid , changed to oral.
-She did ambulatory oxygen testing and seems to be doing well and less need for oxygen as reported
- Short course of IV CFTZ and PO Z max. Stopped intravenous Rocephin, changed to cefdinir to finish 7 days course.. Finished Zithromax
- Nebs PRN , Stopped Symbicort & Spiriva, changed breathing regimen to Pulmicort and DuoNeb Neb ATC . Pt not sure she could handle doing the inhalation technique well at home. She will benefit from Neb at home, will dc on DuoNeb instead of
albuterol and continue on Trelegy
- Appreciate pulmonary input
# Headache
resolved.
# Hypercalcemia, resolved.
#Essential HTN
- Better controlled, keep same dose of Nebivolol
#HLD-
on Rosuvastatin
# Depression
- on Sertraline
# Ipvptk-zmhxwilnnr-ogdsdgbkod 9.3
# hx of Bronchitis-procalcitonin negative
Total time spent to see the patient, examine the patient on the floor, review data and lab results, discuss treatment plan with patient, daughter, nursing staff around 55 minutes
Anticipated Discharge: Within 24 hours
Subjective/Interval History
-
Date of Service: January 11, 2024
Doing better
No worsening cough
Objective Data
-
Vital Signs:
Vital Signs
Temp Pulse Resp BP Pulse Ox
97.8 F 85 14 104/59 98
01/11/24 07:00 01/11/24 11:09 01/11/24 11:09 01/11/24 09:03 01/11/24 08:20
I&O
01/10/24 01/11/24 01/12/24
06:59 06:59 06:59
Intake Total 600 / 600 1580 / 1580
Balance 600 / 600 1580 / 1580
--- NOTE | 2024-01-11 13:47 | W.PN.PUL3 ---
Today's Communication / Plan
-
Prednisone taper
Oral antibiotic
Nebulizer therapy
Eventual pulmonary rehabilitation
I agree with discharge planning
Information left in the chart for eventual follow-up.
Sign off
Assessment
-
83-year-old female with underlying severe COPD followed by Dr. Maza presented with increasing shortness of breath and COPD exacerbation-pulmonary consulted for COPD exacerbation 01/08/2024.
Assessment
Shortness of breath related to COPD with acute exacerbation
COPD-Gold stage IV, oxygen dependent with acute exacerbation
Tkocqe-pjxgnnzcbv-cooxjfxolm 9.3
Bronchitis-procalcitonin negative
Conditions present prior to admission:
COPD-oxygen dependent-suspect Gold stage IV.
Former nmvpfj-55-lsgx-year quit 50 years old.
Hypertension.
Hyperlipidemia.
Plan
Continues to improve from the pulmonary perspective.
Better air movement
Minimal expiratory wheezing with forced expiration.
Oxygen supplementation at baseline
Patient significantly deconditioned-would like to join maintenance debilitation program. She usually follows up at [facility]. Would like to transfer care.
Continue oxygen supplementation: Currently at baseline.
-
Continue nebulizer-DuoNeb/Pulmicort. May continue these at discharge if patient desires.
Usually on Trelegy in outpx
-
Mucolytic's
Discontinued Decadron 01/10/2024. Transitioned to prednisone 40 mg taper by 10 mg every 72 hours to off.
Incentive spirometry
Acapella
-
Check cultures-unable to produce sputum
Empiric antibiotics if acute bacterial bronchitis or acute bacterial lower respiratory tree infection is suspected-
Transition to oral antibiotics-complete total of 5 days.
Procalcitonin negative
Follow hemoglobin-Currently 9.3
Transfuse as needed
Heme test stools
Monitor blood sugars, particularly on high-dose of steroids.
Insulin supplementation as needed
Significantly deconditioned: Continue physical therapy and Occupational Therapy.
DVT prophylaxis recommended-on Lovenox
GI prophylaxis recommended if on steroids for prolonged period
Reviewed with nursing and primary team
Outpatient pulmonary dflvtf-rz-iqsgwhdfj follows with Dr. Maza-will be retiring-maintained on nebulizers, Trelegy, oxygen 2.5 L rest, 4 L exertion, has POC-would like transfer care locally
Suspect patient has COPD/asthma overlap-May be a candidate for Biologics such as Dupixent.
-
No additional recommendation from the pulmonary perspective.
At this point I will sign off.
I agree with discharge planning in the next 24 hours

Diagnostic data:
Chest x-ray 01/07/2024-mild bibasilar opacifications subsegmental atelectasis or pneumonia
Subjective Data
-
Date of Service:
Date of Service: January 11, 2024
Chief Complaint: Pulmonary Follow Up and Dyspnea Follow Up
Subjective:
Feeling better
Wheezing mostly resolved
Denies purulent sputum production.
Patient feels debilitated.
Review of Systems
Cardiopulmonary: Dyspnea
Objective Data
Data Reviewed
Vital Signs / I&O / Oxygen:
Vital Signs
Temp Pulse Resp BP Pulse Ox
97.8 F 85 14 104/59 98
01/11/24 07:00 01/11/24 11:09 01/11/24 11:09 01/11/24 09:03 01/11/24 08:20
Intake and Output
01/10/24 01/11/24 01/12/24
06:59 06:59 06:59
Intake Total 600 / 600 1580 / 1580
Balance 600 / 600 1580 / 1580
SaO2 98
Nasal Cannula flow liters per 2
minute
Physical Exam
General: Respiratory Distress (n), Comfortable and Other ( Able to speak in full sentences)
HEENT: Normocephalic, Anicteric and Moist Mucous Membranes
Cardiovascular: Regular Rhythm and Murmur
Respiratory: Clear ( prolonged expiratory time and overall diminished breath sounds), Wheeze ( forced expiratory-mostly clear lungs), Crackles (n), Non-Labored Respirations, Accessory Resp Muscle Use (n) and Stridor (n)
GI: Soft, Non Distended and Non Tender
Neurology: Awake, Alert and No Motor Deficits
Skin: Warm, Good Color, Cyanosis (n) and Jaundice (n)
Labs/Micro/Reports
Lab Data
01/08/24 06:17
01/08/24 06:17
Microbiology
01/07/24 14:31 Blood/Venous Blood Culture - Preliminary
No Growth in 72 hours- Final report to follow
01/08/24 06:17 Nose MRSA Screen - Final
No Methicillin Resistant Staphylococcus aureus isolated.
[2024-01-11 15:00] VITALS: BP 121/59
--- NOTE | 2024-01-11 16:21 | CM ---
Received consult for patient to receive VN. Met with patient to discuss. Patient denied wanting VN services. She stated that she goes to outpatient therapy.
Plan: Case management will continue to follow and assist with discharge planning. Patient would like to return home and follow up with outpatient rehab.
[2024-01-11] MEDS: LOVENOX 40 MG SC (17:10)
[2024-01-11] MEDS: CRESTOR 10 MG PO (17:10)
[2024-01-11 23:10] VITALS: BP 146/64
[2024-01-12 07:00] VITALS: BP 145/74
[2024-01-12] MEDS: DUONEB 3 ML INH ×2 (07:42→11:27)
[2024-01-12] MEDS: PULMICORT 0.5 MG INH (07:42)
[2024-01-12] MEDS: ASPIR LOW (ENTERIC COATED) 81 MG PO (07:44)
[2024-01-12] MEDS: MUCINEX 600 MG PO (07:44)
[2024-01-12] MEDS: BYSTOLIC 5 MG PO (07:44)
[2024-01-12] MEDS: PROTONIX 40 MG PO (07:44)
[2024-01-12] MEDS: DELTASONE 40 MG PO (07:44)
[2024-01-12] MEDS: BUMEX 0.5 MG PO (07:44)
[2024-01-12] MEDS: ZOLOFT 25 MG PO (07:45)
--- NOTE | 2024-01-12 12:57 | W.PN.HOSP.TC ---
Today's Communication/Plan
-
dc to home
Assessment / Plan
Assessment / Plan
Physical Exam
General: Not in distress, on nasal O2
HEENT: Normocephalic, Anicteric, Moist mucous membranes and Atraumatic
Respiratory: limited with less rhonchi. I did not hear wheezes.
Cardiac: S1/S2,
GI: Soft, Non Tender and Non Distended
Rectal: No rectal bleeding
Genito-urinary: No Turcios
Skin: Warm and Dry
Neuro: AO x 3, she followed commands
Psych: Calm
Assessment:
Acute on chronic hypoxic RF
Acute COPD Exacerbation on COPD stage 4
Bronchitis
- dc on oral steroid taper, s/p cefdinir/Zithromax course
- at DC, continue Duoneb and Trelegy
- OP Pulm f/u locally or with [facility]
Headache
- resolved.
Hypercalcemia, resolved.
Essential HTN
- Better controlled, keep same dose of Nebivolol
HLD
- continue Rosuvastatin
Depression
- on Sertraline
Anemia
- normocytic
- hemoglobin 9.3
More than 30 minutes spent in discharge including
Final examination of the patient
Summarizing hospital stay
Instructions for continuing care to all relevant caregivers
Preparation of discharge records, prescriptions, and referral forms
Total time spent (in minutes): 41
Anticipated Discharge: Today
Subjective/Interval History
-
Date of Service: January 12, 2024
new no complaints
feels well, no SOB, at 2L which is baseline
Objective Data
-
Vital Signs:
Vital Signs
Temp Pulse Resp BP Pulse Ox
98.2 F 84 16 145/74 99
01/12/24 07:00 01/12/24 11:28 01/12/24 07:45 01/12/24 07:44 01/12/24 11:28
I&O
01/11/24 01/12/24 01/13/24
06:59 06:59 06:59
Intake Total 1580 / 1580 240 / 240
Balance 1580 / 1580 240 / 240
Physical Exam
-
General: No Apparent Distress
HEENT: Normocephalic and Atraumatic
Respiratory: Negative Wheezes
Cardiac: Regular Rhythm and S1/S2
GI: Soft
Neuro: AO x 3
Psych: Calm
Data Reviewed
-
Total Time Spent with Patient (in minutes): 41
Labs: Labs Reviewed by me
--- NOTE | 2024-01-12 13:10 | W.DS.TRANS ---
DC Summary - Regional Sales Representative
-
Discharge Instructions:
Discharge Diagnosis/Procedures Acute COPD exacerbation
Diet Low Cholesterol
Activity As tolerated
Driving Restrictions No driving
Bathing Restrictions None
Instructions:
Stand-Alone Forms:
Changes to Home Medications: No
Discharge Medications:
DC Medications w/original date entered in [employer]
denosumab 60 mg/mL subcutaneous syringe (Prolia) 60 mg SQ [id number] bone health 04/20/20
guaifenesin 600 mg tablet, extended release 12 hr (Mucus Relief ER) 600 mg PO QPM Cough 04/20/20
nebivolol 5 mg tablet (Bystolic) 5 mg PO DAILY Blood Pressure 04/20/20
roflumilast 500 mcg tablet (Daliresp) 500 mcg PO DAILY Lung/Breathing Issues 04/20/20
rosuvastatin 10 mg tablet 10 mg PO QPM High Cholesterol 04/20/20
sertraline 25 mg tablet 25 mg PO DAILY Depression 08/28/22
aspirin 81 mg tablet,delayed release 81 mg PO DAILY Blood Clot Prevention/Tx 01/07/24
bumetanide 1 mg tablet 0.5 mg PO DAILY Fluid Retention/Swelling 01/07/24
cyanocobalamin (vitamin B-12) 2,500 mcg sublingual tablet (Vitamin B-12) 2,500 mcg PO DAILY Supplement 01/07/24
guaifenesin 600 mg tablet, extended release 12 hr (Mucinex) 1,200 mg PO DAILY Cough 01/07/24
melatonin 0.5 tab PO HS Sleep 01/07/24
albuterol sulfate 90 mcg/actuation aerosol inhaler 2 puff inhalation R QIDPRN PRN sob/wheeze 30 days #8.5 grams 01/12/24
fluticasone fur. 100 mcg-umeclid 62.5 mcg-vilant 25 mcg inhalat.powder (Trelegy Ellipta) 1 inh inhalation R DAILY Lung/Breathing Issues #60 ea 01/12/24
ipratropium 0.5 mg-albuterol 3 mg (2.5 mg base)/3 mL nebulization soln 3 ml inhalation R Q4HPRN PRN shortness of breath/wheezing #90 mL 01/12/24
pantoprazole 40 mg tablet,delayed release 40 mg PO DAILY #30 tabs 01/12/24
prednisone 10 mg tablet 10 mg PO DIRECTED Anti-Inflammatory #30 tabs 01/12/24
Home Medication Changes
Pending Results: No
Total time spent discharging patient (in min): 41
--- NOTE | 2024-01-12 13:35 | CM ---
Received notification that patient is stable for discharge. Met with patient and her daughter who was at bedside. Patient's daughter signed IMM and had no concerns.
Plan: Case management will continue to follow and assist with discharge planning. Home with outpatient therapy.
[2024-01-12 15:00] VITALS: BP 102/48
== END 2024-01-12 15:18 | disposition home or self-care (01) | DRG 190 ==
LOC: 3 WEST ACU 19:54
PROVIDERS: Emergency Medicine; Physician Assistant; ADMITTING PHYSICIAN Internal Medicine; ATTENDING PHYSICIAN Internal Medicine; CONSULT PHYSICIAN Internal Medicine Critical Care Medicine; EMERGENCY PHYSICIAN Student in an Organized Health Care Education/Training Program; FAMILY PHYSICIAN Internal Medicine
DX: J44.1 Chronic obstructive pulmonary disease with (acute) exacerbation (principal); J96.21 Acute and chronic respiratory failure with hypoxia; J98.11 Atelectasis; D64.9 Anemia, unspecified; I50.9 Heart failure, unspecified; J20.9 Acute bronchitis, unspecified; E78.00 Pure hypercholesterolemia, unspecified; F32.A Depression, unspecified; R51.9 Headache, unspecified; E83.52 Hypercalcemia; D72.829 Elevated white blood cell count, unspecified; I11.0 Hypertensive heart disease with heart failure; Z99.81 Dependence on supplemental oxygen; Z87.891 Personal history of nicotine dependence; Z88.2 Allergy status to sulfonamides; Z88.8 Allergy status to other drugs, medicaments and biological substances; Z11.52 Encounter for screening for COVID-19
CPT/HCPCS: 71046; 80048; 80053; 83605; 83880; 84145; 84484; 85025; 87040; 87070; 87502; 87811; 93005; 94640; 96365; 96375; 97110; 97162; 97166; 97530; 97535; 99285

== ENCOUNTER → 2024-03-10 11:13 | Outpatient (REF) | payer OTHER, SELFPAY ==
[2024-03-10 10:51] LABS: % Basophils 0.6 % (0-2); % Eosinophils 1.5 % (0-6); % Immature Granulocytes 0.1 % (0-0.5); % Lymphocytes 10.1 % (20.5-51.1); % Monocytes 7.1 % (1.7-9.3); % Neutrophils 80.6 % (42.2-75.2); Absolute Eosinophils 0.1 10^3/uL (0-0.7); Absolute Lymphocytes 0.7 10^3/uL (1.2-3.4); Absolute Monocytes 0.5 10^3/uL (0.1-0.6); Absolute Neutrophils 5.4 10^3/uL (1.4-6.5); Mean Corp Hgb Conc. 29.4 g/dL (33.0-37.0); Mean Corpuscular Hgb 24.3 pg (27.0-31.0); Mean Corpuscular Volume 82.7 fL (81.0-99.0); Mean Platelet Volume 9.5 fL (7.4-10.4); Platelet Count 226 10^3/uL (130-400); Red Blood Cell Count 4.11 10^6/uL (4.20-5.40); Red Cell Dist. Width 16.4 % (11.5-14.5); White Blood Cell Count 6.7 10^3/uL (4.8-10.8)
== END ==
LOC: OIDL 11:13
PROVIDERS: ATTENDING PHYSICIAN Internal Medicine Hematology & Oncology
DX: E83.19 Other disorders of iron metabolism (principal)
CPT/HCPCS: 85025

== ENCOUNTER → 2024-09-09 14:21 | Outpatient (REF) | payer OTHER, SELFPAY ==
[2024-09-09 14:39] LABS: B.E. 18.8 mmol/L; HCO3 45.1 mmol/L (21-28); O2 Saturation % 76.6 % (94-98); PCO2 62 mmHg (32-35); PO2 42 mmHg (83-108); pH 7.47 (7.35-7.45)
== END ==
LOC: RSP 14:21
PROVIDERS: ATTENDING PHYSICIAN Internal Medicine Critical Care Medicine; FAMILY PHYSICIAN Internal Medicine
DX: J44.9 Chronic obstructive pulmonary disease, unspecified (principal)
CPT/HCPCS: 36415; 36600; 82805

== ENCOUNTER → 2024-11-17 10:19 | Outpatient (REF) | payer OTHER, SELFPAY ==
[2024-11-17 10:23] LABS: % Basophils 0.5 % (0-2); % Eosinophils 0.7 % (0-6); % Immature Granulocytes 0.4 % (0-0.5); % Lymphocytes 5.5 % (20.5-51.1); % Monocytes 4.7 % (1.7-9.3); % Neutrophils 88.2 % (42.2-75.2); Absolute Eosinophils 0.1 10^3/uL (0-0.7); Absolute Lymphocytes 0.5 10^3/uL (1.2-3.4); Absolute Monocytes 0.4 10^3/uL (0.1-0.6); Absolute Neutrophils 7.3 10^3/uL (1.4-6.5); Hematocrit 40.9 % (37.0-47.0); Hemoglobin 11.7 g/dL (12.0-16.0); Mean Corp Hgb Conc. 28.6 g/dL (33.0-37.0); Mean Corpuscular Volume 83.8 fL (81.0-99.0); Mean Platelet Volume 9.8 fL (7.4-10.4); Platelet Count 241 10^3/uL (130-400); Red Blood Cell Count 4.88 10^6/uL (4.20-5.40); Red Cell Dist. Width 16.9 % (11.5-14.5); White Blood Cell Count 8.2 10^3/uL (4.8-10.8)
== END ==
LOC: OIDL 10:19
PROVIDERS: ATTENDING PHYSICIAN Internal Medicine Hematology & Oncology
DX: E83.19 Other disorders of iron metabolism (principal); D64.9 Anemia, unspecified; D63.8 Anemia in other chronic diseases classified elsewhere; J44.9 Chronic obstructive pulmonary disease, unspecified; I13.0 Hypertensive heart and chronic kidney disease with heart failure and stage 1 through stage 4 chronic kidney disease, or unspecified chronic kidney disease
CPT/HCPCS: 85025

== ENCOUNTER → 2024-12-29 14:26 | Outpatient (REF) | payer OTHER, SELFPAY ==
[2024-12-29 11:19] LABS: % Basophils 0.6 % (0-2); % Eosinophils 0.4 % (0-6); % Immature Granulocytes 0.3 % (0-0.5); % Lymphocytes 4.1 % (20.5-51.1); % Monocytes 4.4 % (1.7-9.3); % Neutrophils 90.2 % (42.2-75.2); Absolute Lymphocytes 0.3 10^3/uL (1.2-3.4); Absolute Monocytes 0.3 10^3/uL (0.1-0.6); Absolute Neutrophils 6.4 10^3/uL (1.4-6.5); Mean Corp Hgb Conc. 28.6 g/dL (33.0-37.0); Mean Corpuscular Hgb 24.8 pg (27.0-31.0); Mean Corpuscular Volume 86.8 fL (81.0-99.0); Mean Platelet Volume 9.4 fL (7.4-10.4); Platelet Count 179 10^3/uL (130-400); Red Blood Cell Count 4.03 10^6/uL (4.20-5.40); Red Cell Dist. Width 17.6 % (11.5-14.5); White Blood Cell Count 7.1 10^3/uL (4.8-10.8)
== END ==
LOC: OIDL 14:26
PROVIDERS: ATTENDING PHYSICIAN Internal Medicine Hematology & Oncology
DX: E83.19 Other disorders of iron metabolism (principal); D63.8 Anemia in other chronic diseases classified elsewhere
CPT/HCPCS: 85025

== ENCOUNTER → 2025-02-03 14:21 | Outpatient (REF) | payer OTHER, SELFPAY ==
[2025-02-03 14:29] LABS: % Basophils 0.5 % (0-2); % Eosinophils 0.8 % (0-6); % Immature Granulocytes 0.2 % (0-0.5); % Lymphocytes 8.1 % (20.5-51.1); % Monocytes 5.4 % (1.7-9.3); Absolute Eosinophils 0.1 10^3/uL (0-0.7); Absolute Lymphocytes 0.5 10^3/uL (1.2-3.4); Absolute Monocytes 0.3 10^3/uL (0.1-0.6); Absolute Neutrophils 5.4 10^3/uL (1.4-6.5); Hematocrit 36.1 % (37.0-47.0); Hemoglobin 10.3 g/dL (12.0-16.0); Mean Corp Hgb Conc. 28.5 g/dL (33.0-37.0); Mean Corpuscular Hgb 25.4 pg (27.0-31.0); Mean Corpuscular Volume 88.9 fL (81.0-99.0); Mean Platelet Volume 9.8 fL (7.4-10.4); Platelet Count 192 10^3/uL (130-400); Red Blood Cell Count 4.06 10^6/uL (4.20-5.40); Red Cell Dist. Width 16.8 % (11.5-14.5); White Blood Cell Count 6.3 10^3/uL (4.8-10.8)
== END ==
LOC: OIDL 14:21
PROVIDERS: ATTENDING PHYSICIAN Internal Medicine Hematology & Oncology
DX: E83.19 Other disorders of iron metabolism (principal); D64.9 Anemia, unspecified; D63.8 Anemia in other chronic diseases classified elsewhere; J44.9 Chronic obstructive pulmonary disease, unspecified; I13.0 Hypertensive heart and chronic kidney disease with heart failure and stage 1 through stage 4 chronic kidney disease, or unspecified chronic kidney disease
CPT/HCPCS: 85025

== ENCOUNTER → 2025-02-16 10:08 | Outpatient (REF) | payer OTHER, SELFPAY ==
[2025-02-16 10:49] LABS: Hematocrit 37.4 % (37.0-47.0); Hemoglobin 10.9 g/dL (12.0-16.0); Mean Corp Hgb Conc. 29.1 g/dL (33.0-37.0); Mean Corpuscular Volume 88.4 fL (81.0-99.0); Platelet Count 189 10^3/uL (130-400); Red Cell Dist. Width 17.5 % (11.5-14.5)
== END ==
LOC: OIDL 10:08
PROVIDERS: ATTENDING PHYSICIAN Internal Medicine Hematology & Oncology
DX: E83.19 Other disorders of iron metabolism (principal); D64.9 Anemia, unspecified; D63.8 Anemia in other chronic diseases classified elsewhere; J44.9 Chronic obstructive pulmonary disease, unspecified; I13.0 Hypertensive heart and chronic kidney disease with heart failure and stage 1 through stage 4 chronic kidney disease, or unspecified chronic kidney disease
CPT/HCPCS: 36415; 85025

== ENCOUNTER → 2025-03-02 10:08 | Outpatient (REF) | payer OTHER, SELFPAY ==
[2025-03-02 10:43] LABS: Hematocrit 37.4 % (37.0-47.0); Hemoglobin 10.8 g/dL (12.0-16.0); Mean Corp Hgb Conc. 28.9 g/dL (33.0-37.0); Mean Corpuscular Volume 90.3 fL (81.0-99.0); Platelet Count 188 10^3/uL (130-400); Red Cell Dist. Width 17.3 % (11.5-14.5)
== END ==
LOC: OIDL 10:08
PROVIDERS: ATTENDING PHYSICIAN Internal Medicine Hematology & Oncology
DX: E83.19 Other disorders of iron metabolism (principal); D64.9 Anemia, unspecified; D63.8 Anemia in other chronic diseases classified elsewhere; J44.9 Chronic obstructive pulmonary disease, unspecified; I13.0 Hypertensive heart and chronic kidney disease with heart failure and stage 1 through stage 4 chronic kidney disease, or unspecified chronic kidney disease
CPT/HCPCS: 36415; 85025

== ENCOUNTER 2025-03-06 03:13 | Inpatient (IN) | payer OTHER, SELFPAY ==
[2025-03-05 20:56] VITALS: BP 133/64
--- NOTE | 2025-03-05 21:07 | ED.GENMED ---
History of Present Illness
General
Chief Complaint: Heart Rate Problem
Source: patient
Exam Limitations: none
Time Seen by Provider: 03/05/25 21:04
Nursing documentation reviewed up to this point in time: agreed with
History of Present Illness
History of Present Illness:
Note:
CHIEF COMPLAINT(S)
Increasing shortness of breath over the past few days.
HISTORY OF PRESENT ILLNESS
The patient is an 84-year-old female with pmf of end stage COPD, CHF, anxiety, depression who presents with increasing shortness of breath experienced over the past few days. The symptoms seem to worsen after taking her medications, with some relief
for approximately 5 to 7 minutes before returning. The patient recalls a feeling of wellness for a couple of days post her regular anemia shot, but this period was followed by increasing symptoms, including breathlessness. She denies experiencing
chest pain but does note intermittent pain in her right shoulder blade over the last couple of days. There is no associated cough with productive sputum and no recent contact with anyone unwell nor any occurrence of fever or chills. She also reports
occasional disorientation and has been using a BiPAP machine inconsistently due to discomfort. Her baseline home oxygen use is at 3 liters. She denies symptoms like palpitations or swelling in her legs. The patient�s medications include inhalers,
namely Albuterol and another inhaler stored in the refrigerator. There is also mention of a nebulized medication that she uses. Prior to coming in today, she used her inhalers but is unsure of the exact sequence. She denies nausea, vomiting,
abdominal pain.
SOCIAL DETERMINANTS AFFECTING HEALTH
The patient expresses that she finds it difficult to consistently use her prescribed BiPAP machine due to discomfort.
REVIEW OF SYSTEMS
- Respiratory: Shortness of breath, no cough with productive sputum.
- Musculoskeletal: Intermittent pain in the right shoulder blade.
- Neurologic: Occasional disorientation noted by family.
- Constitutional: No fever or chills observed.
- Cardiovascular: Denies palpitations or chest pain.
PHYSICAL EXAM
- Nursing notes reviewed and vital signs reviewed.
General: Patient in mild respiratory distress, appears chronically ill
Skin: Warm and dry
Head: Normocephalic, atraumatic
Eyes: Sclera non-icteric. EOMs intact.
Cardiac: Tachycardia noted, otherwise regular rhythm, no murmurs
Peripheral Vascular: No lower extremity swelling or edema. 2+ DP and PT pulses bilaterally.
Pulm: Increased respiratory rate, conversational dyspnea, pursed lip breathing, decreased breath sounds
Abdomen: No abdominal tenderness to palpation to palpation
Neuro: CN II-XII intact, no focal neurologic deficits. Sensation intact. Normal gait.
Psychiatric: Appropriate mood and affect.
PLAN
- Venous blood gas
- Conduct chest X-ray to rule out complications such as pneumonia.
- Review and confirm the patients current list of medications, especially inhalers and nebulized treatments.
- Consideration of administering a Duoneb treatment if appropriate after review of the patients regimen.
- Ensure comprehensive monitoring and evaluation of respiratory status.
DIFFERENTIAL DIAGNOSIS
The Differential Diagnosis includes, in no particular order and is not limited to:
1. Chronic Obstructive Pulmonary Disease (COPD) exacerbation
2. Congestive heart failure
3. Pulmonary embolism
4. Pneumonia
5. Anemia-related dyspnea
6. Asthma exacerbation
7. Pleural effusion
8. Interstitial lung disease
9. Medication side effects
10. Pulmonary hypertension
CHART REVIEW
Reviewed discharge summary from 01/12/2024 patient seen for shortness of breath and was found to have acute COPD exacerbation she was treated with IV steroids, antibiotics
Reviewed physician office visit from 08/28/2022 patient seen for low iron levels and was planned to have a transfused blood
Reviewed external medical summary from November 17, 2024 patient seen for severe stage COPD with chronic hypoxemic respiratory failure and has been oxygen dependent for greater than 8 years; she completed pulmonary rehab and is now on maintenance
therapy; she uses a scooter to get around due to her severe shortness of breath
MDM/DISPOSITION
The patient is an 84-year-old female with pmh of end stage COPD, CHF, anxiety, depression who presents with increasing shortness of breath experienced over the past few days. No fever. No change in sputum production. On exam, she is in mild
respiratory distress. She is requiring 4L when she normally requires 3L. CXR today appears similar to prior. BNP baseline. Suspect acute COPD exacerbation will initiate steroids and antibiotic therapy
Review of Systems
Review of Systems
All Other Systems: ROS reviewed and negative except as documented in HPI and ROS
Phy Exam
Physical Exam
Physical Exam:
see hpi
Course
Orders/Labs/Results
Orders:
Orders
03/05/25 21:04
Electrocardiogram (*1) Urgent
Reason for Study: Other
Other Reason for Exam: Respiratory Distress
Cardiac Monitoring- Treatment ONCE
EKG- Treatment ONCE
IV Insert/Care/Rem.- Treatment PRN
CR Chest - 2 Views Urgent
Comment:
Reason For Exam: respiratory distress
O2 Therapy [RESP] Urgent
Titrate/Wean O2 to maintain O2 sat greater than (%): 93
Special Instructions: TO MAINTAIN CONTINUOUS O2 SATS >/= 93%
Pulse Ox/cont/shift [RESP] Urgent
Quantity: 1
Special Instructions: continuous pulse ox
03/05/25 21:22
COVID-19 Antigen Urgent
Source: Nasal Swab
Complete Blood Count/With Diff Urgent
Comprehensive Metabolic Panel Urgent
NT-proBNP Urgent
Troponin I Urgent
Influenza A+B Rapid Molecular Urgent
ERIKA Source: Nasal Swab
Specimen Description:
03/05/25 21:36
Ipratropium/Albuterol Sulfate [Duoneb] 3 ml INH R NOW STA
03/05/25 21:53
Venous Blood Gas Urgent
%Oxygen/Room Air: 92
03/05/25 23:02
Dexamethasone Sod Phosphate [Decadron] 10 mg IV NOW STA
03/05/25 23:30
Ondansetron Injectable [Zofran] 4 mg IV NOW STA
03/05/25 23:37
Doxycycline Hyclate [Vibramycin] 100 mg 0.9% Sodium Chloride 250 ml [Nss] 250 ml IV NOW
03/06/25 00:54
CT Chest PE Study Urgent
Comment:
Reason For Exam: Hypoxemia, Chest pain
03/06/25 02:26
Acetaminophen [Tylenol] 650 mg .ROUTE .STK-MED ONE
03/06/25 02:39
Admit/Transfer Patient As Directed
Co-Sign Provider:
Level of Care: Inpatient admission
Assign to:: IMU- Intermediate Care
Physician / Group: Yan
Diagnosis: COPD / Atypical Pneumonia
Reason for Hospitalization: COPD / Atypical Pneumonia
Expected length of stay greater than two midnights?: Yes
ELOS- Estimated Length of Stay in days: 4
I certify the patient meets the requirements for IP care: Yes
PRN Pain Medication Management As Directed
May give lesser potent ordered pain med per pt: Yes
preference::
Protocol:: Medication orders for pain may be administered in a
manner that supports deferring to patient preference
when the pt is:
- Requesting an ordered lesser potent pain medication.
Least to most potent pain medications are defined
as: acetaminophen < NSAID < tramadol < opioids
(morphine, oxycodone, hydromorphone).
- Requesting a lesser dose of the same medication IF
ORDERED.
- Requesting a less intrusive route of administration
if both routes are prescribed by the provider (PO <
IV).
03/06/25 02:40
Code Status As Directed
Resuscitation Status: Do not resuscitate
Reached after discussion with pt or family/Healthcare POA: Yes
03/06/25 02:41
Acetaminophen [Tylenol] 650 mg PO NOW STA
DNR Bracelet Application ONCE
03/06/25 04:14
Acetaminophen [Tylenol] 650 mg PO Q4HPRN PRN
Albuterol Nebs [Ventolin Nebules] 2.5 mg INH R Q4HPRN PRN
Lorazepam [Ativan] 0.5 mg PO Q4HPRN PRN
03/06/25 04:14
CARDIOLOGY CONSULT Routine
Consulting Provider: Ashok Maria
Was physician already notified: No
Reason for consult: CHF, Tachycardia
Consult Notification Routine
Specialty to Notify: Cardiology
Date consulting provider notified: 03/06/25
Time consulting provider notified: 06:46
Notified:: Provider
Consult Notification Routine
Specialty to Notify: Pulmonary
Date consulting provider notified: 03/06/25
Time consulting provider notified: 06:45
Notified:: Provider
PULMONARY CONSULT Routine
Consulting Provider: Milton Villareal
Was physician already notified: No
Reason for consult: COPD / Atypical Pneumonia
Activity As Directed
Activity Level: Ambulate
With Assistance
EKG with chest pain [ECG as needed] As Directed
ECG as needed for:: Chest Pain
I/O [Intake/ Output] As Directed
Frequency: Per unit guidelines
Vital Signs As Directed
Frequency: Per unit guidelines
Weight As Directed
Frequency: Daily
Bipap [RESP] Routine
Patient to use own unit?: No
Inspiratory Pressure (cm H2O): 15
Expiratory Pressure (cm H2O): 5
Oxygen Liter Flow: 3
Instructions: HS and PRN
Oxygen Therapy [O2 Therapy] [RESP] Routine
Titrate/Wean O2 to maintain O2 sat greater than (%): 94
PT Consult [Pt Eval And Treat] Routine
Activity Level: Ambulate
With Assistance
DX Deep Vein Thrombosis Video Routine
03/06/25 05:29
Basic Metabolic Panel IN AM
Complete Blood Count/No Diff IN AM
TSH Reflex To Free T4 Routine
Troponin I Q6H
03/06/25 06:00
EKG [Electrocardiogram (*1)] IN AM
Reason for Study: Chest Pain
Echo 2D MMode Doppler [Echo 2D MMode Color/Doppler] IN AM
Reason for Study: CHF
Regular
Fluid Restriction: 1440 mL/day (48 oz)
CefTRIAXone [Rocephin] 1,000 mg IV Q24H
03/06/25 08:00
Aspirin Low Dose EC [Aspir Low (Enteric Coated)] 81 mg PO DAILY
Budesonide [Pulmicort] 0.5 mg INH BID
Bumetanide [Bumex] 0.5 mg PO DAILY
Dapagliflozin [Farxiga] 10 mg PO DAILY
Doxycycline [Vibramycin] 100 mg PO Q12
Ipratropium/Albuterol Sulfate [Duoneb] 3 ml INH R QID
Nebivolol HCl [Bystolic] 5 mg PO DAILY
Pantoprazole [Protonix] 40 mg PO DAILY
Roflumilast [Daliresp] 500 mcg PO DAILY
Sertraline HCl [Zoloft] 75 mg PO DAILY
03/06/25 10:14
Troponin I Q6H
03/06/25 16:14
Troponin I Q6H
03/06/25 18:00
Enoxaparin Sodium [Lovenox] 40 mg SC QPM
Rosuvastatin Calcium [Crestor] 10 mg PO QPM
Abnormal Lab Results
03/05/25 03/05/25
21:22 21:53
Hgb 11.4 L g/dL
(12.0-16.0)
MCH 26.5 L pg
(27.0-31.0)
MCHC 29.8 L g/dL
(33.0-37.0)
RDW 17.4 H %
(11.5-14.5)
Absolute Lymphs (auto) 0.5 L 10^3/uL
(1.2-3.4)
Neutrophils % 83.4 H %
(42.2-75.2)
Lymphocytes % 7.6 L %
(20.5-51.1)
VBG pCO2 77 H* mmHg
(35-48)
VBG pO2 72 H mmHg
(30-50)
VBG HCO3 45.6 H mmol/L
(22-27)
Chloride 93 L mmol/L
(98-107)
Carbon Dioxide 38 H mmol/L
(22-30)
BUN 27 H mg/dl
(7-17)
Glucose 132 H mg/dl
(70-99)
03/05/25 21:22
03/05/25 21:22
Vital Signs
Initial and Last Documented VS:
Initial Vital Signs
Temp Pulse Resp BP Pulse Ox
98.2 F 101 20 133/64 97
03/05/25 20:56 03/05/25 20:56 03/05/25 20:56 03/05/25 20:56 03/05/25 20:56
Last Documented Vital Signs
Temp Pulse Resp BP Pulse Ox
98.0 F 106 18 126/65 93
03/06/25 04:29 03/06/25 07:25 03/06/25 07:25 03/06/25 06:03 03/06/25 07:25
*Pulse Oximetry
SaO2: 97
Nasal Cannula flow liters per minute: 3
Patient hypoxic: no
*Critical Care Note
Total Time (30-74mins, 75-104mins- exclusive of procedures): Not Applicable
ED Attending Note
-
Portions of this chart may have been created with voice recognition software.� Occasional wrong word or��sound alike� substitutions may have occurred due to the inherent limitations of voice recognition software.
Discharge Plan
Departure
Patient Disposition: Admit
Date of Disposition: 03/06/25
Time of Disposition: 00:24
Admit to: Med/Surg
Presentation/result/management discussed w/ accepting MD/DO: Hospitalist
Patient with high blood pressure during this ER visit?: Yes
Condition: Good
Discharge Problem:
Acute exacerbation of chronic obstructive pulmonary disease, Chronic hypoxic respiratory failure
Interventions
Interventions:
*Risk Screen - Suicide Last Done: 03/05/25 20:56
*General Assessment Last Done: 03/05/25 20:56
*Neglect/Abuse Screening Last Done: 03/05/25 20:56
*ED- Fall Risk Assessment Last Done: 03/05/25 20:56
*ED COVID-19 Vaccine History Last Done: 03/05/25 20:56
*Nursing Disposition Last Done: 03/06/25 04:29
ED- Cardiac Assessment Last Done: 03/05/25 21:12
ED- Pulmonary Assessment Last Done: 03/06/25 04:00
Discharge Date and Time
Discharge Date/Time: 03/06/25 04:10
[2025-03-05 21:10] VITALS: BMI 24.6
[2025-03-05 21:41] LABS: Hematocrit 38.2 % (37.0-47.0); Hemoglobin 11.4 g/dL (12.0-16.0); Mean Corp Hgb Conc. 29.8 g/dL (33.0-37.0); Mean Corpuscular Volume 88.6 fL (81.0-99.0); Nucleated Red Blood Cells % 0 %; Platelet Count 197 10^3/uL (130-400); Red Cell Dist. Width 17.4 % (11.5-14.5)
[2025-03-05 21:45] LABS: COVID-19 Antigen Negative (Negative)
[2025-03-05] MEDS: DUONEB 3 ML INH (21:52)
[2025-03-05 21:55] LABS: ALT (SGPT) 11 U/L (0-35); AST (SGOT) 19 U/L (14-36); Albumin 4.1 g/dl (3.5-5.0); Alkaline Phosphatase 60 U/L (38-126); Blood Urea Nitrogen 27 mg/dl (7-17); Calcium 9.5 mg/dl (8.4-10.2); Chloride 93 mmol/L (98-107); Estimated Creatinine Clearance 47 ml/min; Glucose 132 mg/dl (70-99); Potassium 4.2 mmol/L (3.5-5.1); Sodium 139 mmol/L (135-145); Total Protein 6.6 g/dl (6.3-8.2); eGFR > 60.00
[2025-03-05 22:00] LABS: Venous Blood Gas B.E. 17.1 mmol/L (-4 to +4); Venous Blood Gas O2 Sat % 95.8 %
[2025-03-05 22:05] LABS: Carbon Dioxide 38 mmol/L (22-30)
[2025-03-05 22:06] LABS: Troponin I < 0.012 ng/ml
[2025-03-05 23:00] VITALS: BP 139/51
[2025-03-05] MEDS: DECADRON 10 MG IV (23:22)
[2025-03-05] MEDS: ZOFRAN 4 MG IV (23:37)
[2025-03-05] MEDS: VIBRAMYCIN 260 MG IV (23:59)
[2025-03-06] VITALS (19 sets, daily range): BP systolic 105–134; BP diastolic 42–95; PULSE 2–95; O2SAT 91; BMI 25.0
--- NOTE | 2025-03-06 01:01 | HPS.HSE ---
Family Physician
-
Family Physician: Henry Pena
Chief Complaint
-
SOB, Tachycardia
History of Present Illness
Patient is an 84y F with PMH significant for severe COPD, chronic O2-dependence, ASCVD and CHF who presents to ED complaining of increased SOB for the past 3 days. Patient states that she has had episodes of increased dyspnea off-and-on over the
past few weeks. Symptoms have been more consistent over the past 3 days. Mild, non-productive cough. No fevers / chills. Patient complains of L sided chest / rib discomfort as well as occasional L arm discomfort and upper back discomfort. She
typically wears O2 at home at 3.5 lpm. She is on 4 lpm in the ED at present with SpO2 88-94%.
Patient denies any known sick contacts. No recent travel. No recent medication changes.
She is prescribed nightly BiPAP; however, she tolerates this poorly and usually averages only an hour or two per night.
Medical History
Past Medical History
Past Medical History: Reports Other
Additional Past Medical History:
Gold Stage IV COPD
Chronic Hypoxemic and Hypercapnic Respiratory Failure
ASCVD
Chronic HF - Unknown Type
Melanoma
Hypertension
Anxiety / Depression
Past Surgical History: Reports Other
Additional Past Surgical History:
Melanoma Excisions
Hysterectomy
T&A
Toe Amputation
PTCA with Stent
CABG (robotic)
Social History
Tobacco: Former Smoker (Quit smoking at age 50yo. Approx 60 pack years total.)
Alcohol: None
Family History
Family History: Not pertinent
Allergies / Home Medications
Allergies reflects when Allergies were last updated in [facility].
Home Medications with original date entered in [facility]
Allergy/Medication List:
Allergies
Allergy/AdvReac Type Severity Reaction Status Date / Time
Beta-Blockers Allergy Shortness Verified 03/05/25 20:55
(Beta-Adrenergic Bloc of Breath
Sulfa (Sulfonamide Allergy Hives Verified 03/05/25 20:55
Antibiotics)
Home Medications
nebivolol 5 mg tablet (Bystolic) 5 mg PO DAILY Blood Pressure 04/20/20
roflumilast 500 mcg tablet (Daliresp) 500 mcg PO DAILY Lung/Breathing Issues 04/20/20
rosuvastatin 10 mg tablet 10 mg PO QPM High Cholesterol 04/20/20
aspirin 81 mg tablet,delayed release 81 mg PO DAILY Blood Clot Prevention/Tx 01/07/24
bumetanide 1 mg tablet 0.5 mg PO DAILY Fluid Retention/Swelling 01/07/24
cyanocobalamin (vitamin B-12) 2,500 mcg sublingual tablet (Vitamin B-12) 2,500 mcg PO DAILY Supplement 01/07/24
melatonin 1.5 mg PO HS Sleep 01/07/24
pantoprazole 40 mg tablet,delayed release 40 mg PO DAILY #30 tabs 01/12/24
albuterol sulfate 2.5 mg/3 mL (0.083 %) solution for nebulization 2.5 mg inhalation QID 03/06/25
budesonide 0.5 mg/2 mL suspension for nebulization 0.5 mg inhalation BID 03/06/25
dapagliflozin propanediol 10 mg tablet (Farxiga) 10 mg PO DAILY 03/06/25
ferrous sulfate 324 mg (65 mg iron) tablet,delayed release 324 mg PO Q48H 03/06/25
formoterol fumarate 20 mcg/2 mL solution for nebulization 2 ml inhalation BID 03/06/25
prednisone 10 mg tablet 10 mg PO DAILY Anti-Inflammatory 03/06/25
sertraline 50 mg tablet 75 mg PO DAILY 03/06/25
Review of Systems
-
History Source: Patient
A 12 point ROS was completed and negative except as noted: Yes
Constitutional: Reports Fatigue; Denies Fever or Chills
EENT: Denies Sore Throat
Respiratory: Reports Trouble Breathing; Denies Cough
Cardiac: Reports Chest Pain; Denies Diaphoresis, Palpitations or Syncope
Abdomen/GI: Denies Abdominal Pain, Nausea, Vomiting or Diarrhea
: Denies Dysuria, Frequency or Flank Pain
Musculoskeletal: Denies Joint Pain or Edema
Neurological: Denies Dizzy or Headache
Psych: Denies Depression or Anxiety
Physical Exam
Vital Signs
Vital Signs
Temp Pulse Resp BP Pulse Ox
98.2 F 110 23 123/60 88
03/05/25 20:56 03/06/25 00:00 03/06/25 00:00 03/06/25 00:00 03/06/25 00:00
Physical Exam
General: Other (84y F in mild distress due to dyspnea.)
HEENT: Moist mucous membranes and PERRLA
Respiratory: Other (Decreased BS bilaterally. Faint expiratory wheezes. No rales / rhonchi.)
Cardiac: S1/S2, Regular Rhythm, Tachycardia and Murmur (II/ IVETTE)
GI: Soft, Non Tender, Non Distended and Normal Bowel Sounds
Musculoskeletal: No Clubbing, No Cyanosis and No Edema
Neuro: AO x 3
Laboratory Results
-
03/05/25 21:22
03/05/25 21:22
Laboratory Results
Total Bilirubin 0.8 mg/dl (0.2-1.3) 03/05/25 21:22
AST 19 U/L (14-36) 03/05/25 21:22
ALT 11 U/L (0-35) 03/05/25 21:22
Alkaline Phosphatase 60 U/L (38-126) 03/05/25 21:22
Troponin I < 0.012 ng/ml 03/05/25 21:22
Impression/Plan
-
A/P: Patient is an 84y F with PMH significant for COPD, ASCVD and CHF who presents to ED complaining of increased SOB for the past 3 days.
Acute on Chronic Hypoxemic Respiratory Failure
Chronic Hypercapnic Respiratory Failure
Advanced Stage COPD
- Admit for further evaluation and treatment.
- Increased work of breathing with increased O2 needs.
- ? bibasilar opacities on CXR - but also seen on prior imaging.
- With tachycardia and worsened hypoxemia - as well as L sided chest discomfort - would check CTA to rule out PE.
- No PE seen (limited at peripheral / subsegmental levels).
- Severe emphysema and nodular opacities in the bases - L > R.
- Treat for COPD +/- atypical infection with IV steroids, nebs, abx, etc.
- BiPAP at HS as tolerated.
- Continue usual roflumilast and inhaled medications.
- Pulmonary evaluation for additional recommendations.
Chronic HF - Unknown Type
- ? HFrEF as family states 'her heart only works 20%'.
- No evidence on exam of volume overload.
- Continue current regimen of bumetanide and Farxiga without changes.
- Follow I/Os, daily weights, etc.
- Check Echo.
ASCVD
- L sided chest discomfort / 'rib pain' reported by patient.
- Rule out PE as noted above.
- EKG without evident ischemia. Initial troponin undetectable.
- Continue ASA uninterrupted. Continue statin.
Anxiety / Depression
- Stable. Continue sertraline.
DVT Prophylaxis: Lovenox
Code Status: DNR
[2025-03-06] MEDS: TYLENOL 650 MG PO (02:41)
--- NOTE | 2025-03-06 04:25 | EDRN ---
Addendum entered by Rossy Mendez RN 03/06/25 04:28:
Patient taken to room 3344 on O2 4LNC on monitor on stretcher.
Original Note:
Report given to MAXIMO Cui in IMU.
[2025-03-06] MEDS: ROCEPHIN 1000 MG IV (05:18)
[2025-03-06 05:59] LABS: Hematocrit 34.2 % (37.0-47.0); Hemoglobin 10.3 g/dL (12.0-16.0); Mean Corp Hgb Conc. 30.1 g/dL (33.0-37.0); Mean Corpuscular Volume 90.2 fL (81.0-99.0); Platelet Count 194 10^3/uL (130-400); Red Cell Dist. Width 17.2 % (11.5-14.5)
[2025-03-06 06:12] LABS: Troponin I < 0.012 ng/ml
[2025-03-06 06:21] LABS: Blood Urea Nitrogen 31 mg/dl (7-17); Calcium 8.9 mg/dl (8.4-10.2); Carbon Dioxide 39 mmol/L (22-30); Chloride 97 mmol/L (98-107); Estimated Creatinine Clearance 54 ml/min; Glucose 142 mg/dl (70-99); Potassium 5.2 mmol/L (3.5-5.1); Sodium 138 mmol/L (135-145); eGFR > 60.00
--- NOTE | 2025-03-06 06:24 | PTCARENOTE ---
Pt received from ED to IMU room 3344. AAOx3. Received on 4L NC. POX 94%. Lungs very diminished. No wheezing noted. KEBEDE/GAVIN/PLB at times. RR's 26. Denies any pain or discomfort. ST on CM rate 119. When ambulating into the bathroom HR up to 160's.
Afebrile. Pt has what appears to be a bite hina on her right buttock. Pt denies that anyone bit her. Pt asked if she sat on her dentures and pt stated 'no.' Pt oriented to room and surroundings. Call srivastava remains within reach.
[2025-03-06] MEDS: PULMICORT 0.5 MG INH ×2 (07:22→18:36)
[2025-03-06] MEDS: DUONEB 3 ML INH ×4 (07:22→18:35)
[2025-03-06] MEDS: BUMEX 0.5 MG PO (08:42)
[2025-03-06] MEDS: ASPIR LOW (ENTERIC COATED) 81 MG PO (08:42)
[2025-03-06] MEDS: BYSTOLIC 5 MG PO (08:43)
[2025-03-06] MEDS: PROTONIX 40 MG PO (08:43)
[2025-03-06] MEDS: DALIRESP 500 MCG PO (08:44)
[2025-03-06] MEDS: VIBRAMYCIN 100 MG PO ×2 (08:45→19:53)
[2025-03-06] MEDS: ZOLOFT 75 MG PO (08:45)
[2025-03-06] MEDS: FARXIGA 10 MG PO (08:46)
--- NOTE | 2025-03-06 09:27 | CON.PUL ---
Consultation
Consultation Request
Date/Time Consultation Requested: 03/06/2025413
Date/Time Consultation Performed: 03/06/2025921
Requesting Provider: Dr. Heredia
Performing Provider: Dr. Villareal
Reason for Consultation: SOB with advanced stage COPD/Lung nodules
Medical History
-
Chief Complaint: SOB + fast heart rate
History of Present Illness:
84-year-old female with a past medical history of end-stage COPD on home oxygen and chronic prednisone 10 mg daily, chronic hypoxic/hypercapnic respiratory failure with nocturnal NIV dependence, centrilobular/paraseptal emphysema, CAD with history
of [place] and robotic bypass (May 2019), history of melanoma on face + toe, history of SCC on forehead, history of pneumonia, hypertension, history of W[place], osteoporosis, depression/anxiety, colonic polyps, and history of anemia who presents with
worsening SOB + fast heart rate. She is chronically on home oxygen, now on 3-3.5 L/min ATC. She uses NIV with sleep due to chronic hypercapnia, although has poor tolerance of this, only able to use it for couple hours per night. About 3 days ago
she began to feel short of breath and just general fatigue. She checks her vitals at home via a pulse oximeter and her heart rate has been as high as 100�110 and normally she is between 50�70. No recent sick contacts, and no recent change in
medications. She does also endorse chest congestion but difficulty bringing up any phlegm. In the ER she was afebrile with pulse rate 101, respiratory rate 20, BP 133/64 and saturating 97% on 3 L/min nasal cannula. Pertinent labs showed normal
WBC at 6.8, Hb 11.4, blood gas with pH 7.3, pCO2 77, pO2 72 and O2 saturation 95.8%, serum bicarbonate level 38, proBNP 1380, and COVID-19 antigen negative. Flu swab was also negative. CXR shows patchy parenchymal opacities in the lower lobes,
predominantly left lower lobe, concerning for pneumonia. In the ER she was given Decadron, DuoNebs, doxycycline, Zofran and Tylenol. She was admitted to the IMU under the hospitalist service and now Pulmonary service consulted for additional
management/recommendations.
Of note, patient follows with us in the [facility] office, last visit 11/17/[address] Steve. Patient follows for COPD with chronic hypoxic/hypercapnic respiratory failure and chronic cough. She has severe Gold stage IV COPD with FEV1 to 50 cc. She
has been oxygen dependent for >8 years with progressive dyspnea with minimal effort. Previously followed with Dr. Herrera at [facility]. According to documentation, patient had a CT chest performed at [facility] which did not show any
evidence of lung nodules at the time (believe this was done in December 2023). She is continued on NIV given her chronic hypercapnic respiratory failure, compliance is encouraged however she has great difficulty using this and does not like it. Can
only tolerate couple hours at the time.
PMHx: End-stage COPD on home oxygen and chronic prednisone 10 mg daily, chronic hypoxic/hypercapnic respiratory failure with nocturnal NIV dependence, centrilobular/paraseptal emphysema, history of melanoma on face + toe, history of SCC on forehead,
history of pneumonia, hypertension, history of W[place], osteoporosis, depression/anxiety, colonic polyps, history of anemia
PSHx: Robotic bypass (05/2019), hysterectomy, tonsillectomy, toe amputation, Mohs surgery x 2
Past Medical History
Past Medical History: Other (Above as per HPI)
Past Surgical History: Other (Above as per HPI)
Social History
Tobacco: Former Smoker (Quit in 1987, smoked 2-3 PPD x 40 years)
Alcohol: None
Drug: None
Family History
Family History: Cancer (Father: Prostate cancer) and Other (Mother: Emphysema)
Allergies / Home Medications
Allergies
Allergy/AdvReac Type Severity Reaction Status Date / Time
Beta-Blockers Allergy Shortness Verified 03/05/25 20:55
(Beta-Adrenergic Bloc of Breath
Sulfa (Sulfonamide Allergy Hives Verified 03/05/25 20:55
Antibiotics)
Home Medications
�Medication �Instructions �Recorded �Confirmed �Last Taken �Type
nebivolol 5 mg tablet (Bystolic) 5 mg PO DAILY Blood Pressure 04/20/20 03/06/25 01/07/24 History
roflumilast 500 mcg tablet 500 mcg PO DAILY Lung/Breathing 04/20/20 03/06/25 01/07/24 History
(Daliresp) Issues
rosuvastatin 10 mg tablet 10 mg PO QPM High Cholesterol 04/20/20 03/06/25 01/06/24 History
aspirin 81 mg tablet,delayed 81 mg PO DAILY Blood Clot 01/07/24 03/06/25 01/07/24 History
release Prevention/Tx
bumetanide 1 mg tablet 0.5 mg PO DAILY Fluid 01/07/24 03/06/25 01/07/24 History
Retention/Swelling
cyanocobalamin (vitamin B-12) 2,500 mcg PO DAILY Supplement 01/07/24 03/06/25 01/07/24 History
2,500 mcg sublingual tablet
(Vitamin B-12)
melatonin 1.5 mg PO HS Sleep 01/07/24 03/06/25 01/06/24 History
pantoprazole 40 mg tablet,delayed 40 mg PO DAILY #30 tabs 01/12/24 03/06/25 Unknown Rx
release
albuterol sulfate 2.5 mg/3 mL 2.5 mg inhalation QID 03/06/25 03/06/25 Unknown History
(0.083 %) solution for nebulization
budesonide 0.5 mg/2 mL suspension 0.5 mg inhalation BID 03/06/25 03/06/25 Unknown History
for nebulization
dapagliflozin propanediol 10 mg 10 mg PO DAILY 03/06/25 03/06/25 Unknown History
tablet (Farxiga)
ferrous sulfate 324 mg (65 mg 324 mg PO Q48H 03/06/25 03/06/25 Unknown History
iron) tablet,delayed release
formoterol fumarate 20 mcg/2 mL 2 ml inhalation BID 03/06/25 03/06/25 Unknown History
solution for nebulization
prednisone 10 mg tablet 10 mg PO DAILY Anti-Inflammatory 03/06/25 03/06/25 Unknown History
sertraline 50 mg tablet 75 mg PO DAILY 03/06/25 03/06/25 Unknown History
Review of Systems
-
History Source: Patient
All other systems: Negative unless noted
Vitals / Labs / Diagnostic Testing
Vital Signs
Temp Pulse Resp BP Pulse Ox
98.0 F 100 18 112/41 93
03/06/25 04:29 03/06/25 08:43 03/06/25 07:25 03/06/25 08:43 03/06/25 07:25
Lab Data
03/06/25 05:29
03/06/25 05:29
Microbiology
03/05/25 21:22 Nasal Swab Influenza Types A & B (VIANNEY) - Final
Negative for Influenza A & B, NAAT
Negative results must be combined with clinical observations
and patient history.
Nucleic Acid Amplification test (NAAT)performed on the
[employer] platform.
Diagnostic Testing:
Physical Exam
-
HEENT: Normocephalic and Anicteric
Cardiovascular: S1/S2 and Peripheral Edema (negative)
Respiratory: Wheeze (negative), Rales (Bibasilar), Rhonchi (negative) and Non-Labored Respirations
GI: Soft, Non Distended, Non Tender and Normal Bowel Sounds
Neurology: AO x 3 and Tremors (negative)
Skin: Warm and Dry
General: Respiratory Distress (negative), Comfortable, Fever (negative) and Chills (negative)
Assessment
-
Assessment: 84-year-old female with a past medical history of end-stage COPD on home oxygen and chronic prednisone 10 mg daily, chronic hypoxic/hypercapnic respiratory failure with nocturnal NIV dependence, centrilobular/paraseptal emphysema, CAD
with history of [place] and robotic bypass (May 2019), history of melanoma on face + toe, history of SCC on forehead, history of pneumonia, hypertension, history of [place], osteoporosis, depression/anxiety, colonic polyps, and history of anemia who
presents with worsening SOB + fast heart rate. She is chronically on home oxygen, now on 3-3.5 L/min ATC. She uses NIV with sleep due to chronic hypercapnia, although has poor tolerance of this, only able to use it for couple hours per night.
About 3 days ago she began to feel short of breath and just general fatigue. She checks her vitals at home via a pulse oximeter and her heart rate has been as high as 100�110 and normally she is between 50�70. No recent sick contacts, and no
recent change in medications. She does also endorse chest congestion but difficulty bringing up any phlegm. In the ER she was afebrile with pulse rate 101, respiratory rate 20, BP 133/64 and saturating 97% on 3 L/min nasal cannula. Pertinent labs
showed normal WBC at 6.8, Hb 11.4, blood gas with pH 7.3, pCO2 77, pO2 72 and O2 saturation 95.8%, serum bicarbonate level 38, proBNP 1380, and COVID-19 antigen negative. Flu swab was also negative. CXR shows patchy parenchymal opacities in the
lower lobes, predominantly left lower lobe, concerning for pneumonia. In the ER she was given Decadron, DuoNebs, doxycycline, Zofran and Tylenol. She was admitted to the IMU under the hospitalist service and now Pulmonary service consulted for
additional management/recommendations.
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
of SCC on forehead, history of pneumonia, hypertension, history of [place], osteoporosis, depression/anxiety, colonic polyps, history of anemia
Impression:
#Acute COPD exacerbation
#Acute on chronic respiratory failure with hypoxia + hypercapnia (only mild respiratory acidosis)
#Metabolic alkalosis due to compensation from chronic hypercapnia
#Elevated proBNP
#Severe pulmonary hypertension (RVSP: 75 mmHg via echo in July 2024 at outside institution)
#Chronic HFpEF
#Abnormal TFTs with reduced TSH and normal free T4, likely due to euthyroid sick syndrome
#Class IV COPD on chronic prednisone 10 mg daily, Daliresp, Zithromax TID, Brovana + budesonide BID and Yupelri with prn DuoNebs
#Multiple lung nodules with largest 2.4 cm in left base - concerning for malignancy
#Former tobacco smoker (75-jmer-wvbs history, quit at age 50)
#Hypertension
#Hyperlipidemia
#Chronic anemia
Plan:
- Patient developed SOB with increased heart rate and general malaise few days ago; denies any recent sick contacts. She also has chest congestion
- She has areas of groundglass seen in the left upper lobe, however this could very well be mosaic attenuation from air trapping; no evidence of pneumonia seen on imaging, also no concern for acute decompensated heart failure despite elevated
proBNP which may very well be due to pulmonary hypertension.
- Concern for COPD exacerbation possibly related to viral URI
- Considering she is on chronic prednisone, I will raise her to Solu-Medrol for now, and then decrease down to prednisone with slow taper
- Continue with budesonide + DuoNebs; prn nebulized bronchodilators (not currently bronchospastic)
- Continue with Daliresp
- Currently on ceftriaxone + doxycycline, however unclear if antibiotics are indicated given she lacks leukocytosis, is afebrile and no obvious consolidation seen on CT chest.
- Would check procalcitonin, and if normal then would stop antibiotics
- Once off antibiotics, then resume Zithromax TIW (QTc: 467 ms from admission EKG)
- Check echo to assess right-sided pressure, valve function, LVEF, etc
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 Kaplan, showing LVEF 65-70% with no regional WMA, with RV mild dilation with reduced RV systolic function, moderately dilated RA and severely elevated RVSP at 75 mmHg
- Continue supplemental oxygen, titrating to maintain SpO2 88-95%
- At home she has been using between 2-3 L/min at rest, and 3-3.5 L/min with activity.
- She uses and ASTRAL ventilator for chronic hypercapnia
- She will need to continue with BiPAP while she is hospitalized, and will trend her blood gas to assure pH + pCO2 remained stable
- She does have multiple pulmonary nodules predominantly in the left base - concerning for malignancy. Given her advanced COPD with pulmonary hypertension and CAD, may be best to obtain tissue via IR TTNA and not put her through robotic bronchoscopy
- This will need to be discussed as an outpatient
- Outside imaging at [facility] via CTA chest on 07/24/2024 does not mention any nodules in the report. Ideally, we would review the images ourselves. Will ask the family to see if they can get a disc so that we can review these images directly
- Per the daughter Katie, the patient has at least 1 lung nodule but patient/daughter are not sure where it is located or the size
- Incentive spirometer encouraged q1hr while awake
- Replete electrolytes with K>4, Mg>2
- Trend H/H and transfuse if needed to keep Hb>7g/dL; keep plt>20k, unless there is concern for bleeding then keep plt>50k
- Maintain euglycemia with goal BG >100 and <180; chekc A1C
- DVT ppx: LMWH
Code status: DNR/DNI
Pulmonary service will continue to follow along. Patient already has follow-up arranged with Dr. Steve for 03/23/2025 at 9 AM (last visit 11/17/2024). Patient was encouraged to keep his appointment, especially given her abnormal CT chest findings
with new lung nodules.
Data:
CTA Chest 03/06/2025:
1. No evidence of pulmonary embolism or thoracic aortic dissection.
2. Multiple lung nodules within the lower lung zones, measuring up to 2.4 cm in diameter. Nodules are highly concerning for bronchogenic or metastatic malignancy. Differential diagnosis includes rounded atelectasis. Consider PET/CT and/or follow-up
CT chest.
3. Severe emphysema.
4. Wall thickening of the distal esophagus, which may be related to gastroesophageal reflux or Reaves's esophagus.
5. Compression fractures of the T4 and T7 vertebral bodies, likely chronic.
Spirometry: 01/29/2024: Very severe COPD with postbronchodilator FEV1 0.23 L / 12% predicted. Also very severe restrictive lung defect with postbronchodilator FVC: 0.75 L / 29% predicted. Pre-bronchodilator efforts were not repeatable, and there
was not enough acceptable maneuvers during post-BD testing.
Outside Imaging - [place]
CTA chest 07/24/2024: Comparison to CXR on 07/17/2023: Suboptimal contrast opacification of pulmonary arteries. No definite segmental or subsegmental pulmonary artery embolus but incomplete evaluation. Enlarged main pulmonary artery measuring 3.9
cm. Severe emphysema. Diffuse interlobular septal thickening. Bibasilar airspace disease likely atelectasis. Moderate bilateral pleural effusions. Multilevel compression deformities of thoracic spine most likely chronic.
CT abdomen/pelvis 01/15/[address] abdomen/pelvis on 05/30/2017: Images of the lung bases reveal the presence of bullous emphysematous changes. Stable mild thickening of the appendix with no evidence for appendiceal inflammatory
changes.
Total time spent today was 57 minutes for this encounter. Time includes reviewing laboratory test/imaging results, reviewing pertinent medical records, obtaining and reviewing medical history, performing an appropriate exam, ordering medications,
tests and procedures. Time also includes documentation of this encounter, coordinating patient care and communicating with other healthcare professionals. Total time does not include separately billed tests performed on this date of service.
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
[2025-03-06 11:43] LABS: Troponin I < 0.012 ng/ml
--- NOTE | 2025-03-06 12:38 | PTCARENOTE ---
Patient is having periods of dyspnea, tachypnea while sitting up in bed with 3.5 liters of oxygen on. Pulse ox drops to the low 80s at times, recovers back to 91% with deep breathing.
--- NOTE | 2025-03-06 13:32 | W.PN.HOSP.TC ---
Today's Communication/Plan
-
nebulizers
incentive asia, acapella
F/u pulm eval for comparison of chest imaging
empiric abx
procalcitonin
Assessment / Plan
Assessment / Plan
Physical Exam
General: Other (84y F in mild distress due to dyspnea.)
HEENT: Moist mucous membranes and PERRLA
Respiratory: Other (Decreased BS bilaterally.no audible wheezing No rales / rhonchi.)
Cardiac: S1/S2, Regular Rhythm, Tachycardia and Murmur (II/ IVETTE)
GI: Soft, Non Tender, Non Distended and Normal Bowel Sounds
Musculoskeletal: No Clubbing, No Cyanosis and No Edema
Neuro: AO x 3
A/P: Patient is an 84y F with PMH significant for COPD, ASCVD and CHF who presents to ED complaining of increased SOB for the past 3 days.
Acute on Chronic Hypoxemic Respiratory Failure
Acute on Chronic Hypercapnic Respiratory Failure
Advanced Stage COPD, GOLD Stage IV
COPD exacerbation
-recently on 3.5L O2 at home
?Underlying metastatic malignancy- i suspect this is triggering response
- Admit for further evaluation and treatment.
- Increased work of breathing with increased O2 needs.
- Treat for COPD +/- atypical infection with IV steroids, nebs, abx, etc.
- BiPAP at HS as tolerated.
-Can cont abx for now
-Procal f/u
- Continue usual roflumilast and inhaled medications.
- Pulmonary evaluation for additional recommendations.
-Incentive [place], Acapella
Chronic HF - Unknown Type
- ? HFrEF as family states 'her heart only works 20%'.
- No evidence on exam of volume overload.
- Continue current regimen of bumetanide and Farxiga without changes.
- Follow I/Os, daily weights, etc.
- Check Echo.
ASCVD
- L sided chest discomfort / 'rib pain' reported by patient.
- Suspect possible 2/2 to ?malignancy and pleuritic chest pain
- EKG without evident ischemia. Initial troponin undetectable.
- Continue ASA uninterrupted. Continue statin.
Anxiety / Depression
- Stable. Continue sertraline.
DVT Prophylaxis: Lovenox
Code Status: DNR
Anticipated Discharge: > 48 hours
Subjective/Interval History
-
Date of Service: March 06, 2025
no acute events; desaturating with ambulation;
Objective Data
-
Labs:
Laboratory Results
03/06/25
05:29
WBC 7.2
Hgb 10.3 L
Hct 34.2 L
Plt Count 194
Sodium 138
Potassium 5.2 H
Chloride 97 L
Carbon Dioxide 39 H
BUN 31 H
Creatinine 0.7
Glucose 142 H
Calcium 8.9
Vital Signs:
Vital Signs
Temp Pulse Resp BP Pulse Ox
98.6 F 88 26 115/55 89
03/06/25 12:06 03/06/25 12:15 03/06/25 12:15 03/06/25 12:04 03/06/25 12:15
I&O
03/05/25 03/06/25 03/07/25
06:59 06:59 06:59
Intake Total 200 / 200
Output Total 200 / 200
Balance 0 / 0
Review of Systems
-
History Source: Patient
All other systems: Not reviewed unless documented
Physical Exam
-
General: No Apparent Distress
HEENT: Normocephalic and Atraumatic
Respiratory: Negative Wheezes
Cardiac: Regular Rhythm and S1/S2
GI: Soft
Neuro: AO x 3
Psych: Calm
Data Reviewed
-
Total Time Spent with Patient (in minutes): 41
CT Scan: Report Reviewed by me
Labs: Labs Reviewed by me
--- NOTE | 2025-03-06 15:06 | CHAP ---
Viviana's daughter had requested a research lab assistant visit for her. Viviana smiled, said she's been through a lot. She appeared to be in good spirits, with her daughter at the bedside. She welcomed prayer and appreciated a prayer blanket in her favorite color,
as she was cold. Emotional and spiritual support provided.
--- NOTE | 2025-03-06 15:28 | PTCARENOTE ---
Patients daughter called on 3 way call with an online marketing coordinator doctor from [facility]. Doctor stated that he saw no nodules in previous scan. Notified Dr. Villareal of this information. Records from [place] to be requested.
[2025-03-06 16:17] LABS: Procalcitonin < 0.05 ng/ml (0.0-0.25)
--- NOTE | 2025-03-06 16:19 | PTCARENOTE ---
Patients pulse ox dropped to 83% when transferring to bedside chair. Oxygen increased to 5 liters, pulse ox took several minutes to recover. Pulse ox is now 90% on 5 liters when sitting up on chair.
[2025-03-06 16:23] LABS: Troponin I < 0.012 ng/ml
[2025-03-06] MEDS: LOVENOX 40 MG SC (17:39)
[2025-03-06] MEDS: SOLU-MEDROL PF 40 MG IV (17:39)
[2025-03-06] MEDS: CRESTOR 10 MG PO (17:40)
--- NOTE | 2025-03-06 18:40 | PTCARENOTE ---
Patients pulse ox dropping into the 80s this evening. Oxygen titrated up to 6 liters to maintain goal of 88%. Patient continued to be short of breath, respiratory contacted. Patient started on IV SOlumedrol dose. Patient placed back in bed.
Respiratory discussed plan of care with pulmonary.
[2025-03-07] VITALS (14 sets, daily range): BP systolic 104–139; BP diastolic 52–77; PULSE 2–77; BMI 25.6
[2025-03-07] MEDS: ROCEPHIN 1000 MG IV (05:21)
[2025-03-07] MEDS: STERILE WATER FOR INJECTION 10 ML IV (05:21)
[2025-03-07 05:40] LABS: Venous Blood Gas B.E. 16.7 mmol/L (-4 to +4); Venous Blood Gas O2 Sat % 94.5 %
[2025-03-07 05:43] LABS: Hematocrit 32.7 % (37.0-47.0); Hemoglobin 9.6 g/dL (12.0-16.0); Mean Corp Hgb Conc. 29.4 g/dL (33.0-37.0); Mean Corpuscular Volume 89.8 fL (81.0-99.0); Platelet Count 188 10^3/uL (130-400); Red Cell Dist. Width 17.3 % (11.5-14.5)
--- NOTE | 2025-03-07 05:49 | PTCARENOTE ---
Caring for pt overnight. aaox3, but forgetful & confused at times. NSR PAC on monitor. Received pt on 6LMF, bumped to 8LMF and still desating to low 80's on and off. Pt always stating she was comfortable. placed on bipap HS per orders. Pt seemed to
get more confused at night and was complaining of not getting any sleep with the bipap mask on. Pt continued to take mask off. In total pt wore mask for about 3 hours overnight. Morning vbg's shwoed co2 went up to 87. DIRECTOR CARDIOLOGY aware. VSS. Will monitor.
[2025-03-07 06:04] LABS: ALT (SGPT) 12 U/L (0-35); AST (SGOT) 19 U/L (14-36); Albumin 3.5 g/dl (3.5-5.0); Alkaline Phosphatase 40 U/L (38-126); Blood Urea Nitrogen 34 mg/dl (7-17); Calcium 8.9 mg/dl (8.4-10.2); Chloride 98 mmol/L (98-107); Estimated Creatinine Clearance 54 ml/min; Glucose 101 mg/dl (70-99); Magnesium 2.1 mg/dl (1.6-2.3); Potassium 4.7 mmol/L (3.5-5.1); Sodium 141 mmol/L (135-145); Total Protein 5.6 g/dl (6.3-8.2); eGFR > 60.00
[2025-03-07 06:29] LABS: Carbon Dioxide 41 mmol/L (22-30)
[2025-03-07] MEDS: PULMICORT 0.5 MG INH ×2 (07:24→19:21)
[2025-03-07] MEDS: DUONEB 3 ML INH ×4 (07:24→19:20)
[2025-03-07] MEDS: PROTONIX 40 MG PO (08:05)
[2025-03-07] MEDS: DALIRESP 500 MCG PO (08:05)
[2025-03-07] MEDS: BYSTOLIC 5 MG PO (08:05)
[2025-03-07] MEDS: BUMEX 0.5 MG PO (08:07)
[2025-03-07] MEDS: VIBRAMYCIN 100 MG PO ×2 (08:07→20:13)
[2025-03-07] MEDS: FARXIGA 10 MG PO (08:08)
[2025-03-07] MEDS: SOLU-MEDROL PF 40 MG IV ×2 (08:08→20:14)
[2025-03-07] MEDS: ZOLOFT 75 MG PO (08:08)
[2025-03-07] MEDS: ASPIR LOW (ENTERIC COATED) 81 MG PO (08:08)
--- NOTE | 2025-03-07 08:46 | PTCARENOTE ---
Patient complaining of sternal pain while sitting up in bed, stating that the pain is occasional and sharp. Patient placed in bed and symptoms improved. EKG completed. Notified Dr. Sams. Blood pressure 121/58, Sinus @87. Patient is now burping
stating that symptoms have improved a little.
[2025-03-07] MEDS: MYLICON 80 MG PO (09:28)
[2025-03-07] MEDS: MIRALAX 17 GRAMS PO (09:28)
[2025-03-07 09:30] LABS: Glycohemoglobin (HgbA1c) 5.1 % (4.0-5.6)
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
--- NOTE | 2025-03-07 09:31 | WOUNDNOTE ---
R THIGH (BIOPSY SITE)
--- NOTE | 2025-03-07 10:12 | PTCARENOTE ---
Patient was given simethicone and Miralax. Patient sat on commode and had a large bowel movement. Pain is 0 out of 10 at this time.
--- NOTE | 2025-03-07 10:31 | W.PN.PUL3 ---
Today's Communication / Plan
-
Discontinue ceftriaxone today.
Not unreasonable to treat with doxycycline for 5 days for bronchitis
Discontinue methylprednisolone today-transitioned to 40 mg of prednisone with a slow taper.
In regards to lung nodules: Appears to be new since July 2024-. Prior CT scan was at [facility] and no reports of lung nodules. Discussed with patient and daughter hold off on evaluation. Unlikely to tolerate complications for biopsy
or even cancer therapy.
Palliative care has been recommended in the past-due to thinking about it
Physical therapy/Occupational Therapy
Assessment
-
Assessment: 84-year-old female with a past medical history of end-stage COPD on home oxygen and chronic prednisone 10 mg daily, chronic hypoxic/hypercapnic respiratory failure with nocturnal NIV dependence, centrilobular/paraseptal emphysema, CAD
with history of PR and robotic bypass (May 2019), history of melanoma on face + toe, history of SCC on forehead, history of pneumonia, hypertension, history of PR, osteoporosis, depression/anxiety, colonic polyps, and history of anemia who
presents with worsening SOB + fast heart rate. She is chronically on home oxygen, now on 3-3.5 L/min ATC. She uses NIV with sleep due to chronic hypercapnia, although has poor tolerance of this, only able to use it for couple hours per night.
About 3 days ago she began to feel short of breath and just general fatigue. She checks her vitals at home via a pulse oximeter and her heart rate has been as high as 100�110 and normally she is between 50�70. No recent sick contacts, and no
recent change in medications. She does also endorse chest congestion but difficulty bringing up any phlegm. In the ER she was afebrile with pulse rate 101, respiratory rate 20, BP 133/64 and saturating 97% on 3 L/min nasal cannula. Pertinent labs
showed normal WBC at 6.8, Hb 11.4, blood gas with pH 7.3, pCO2 77, pO2 72 and O2 saturation 95.8%, serum bicarbonate level 38, proBNP 1380, and COVID-19 antigen negative. Flu swab was also negative. CXR shows patchy parenchymal opacities in the
lower lobes, predominantly left lower lobe, concerning for pneumonia. In the ER she was given Decadron, DuoNebs, doxycycline, Zofran and Tylenol. She was admitted to the IMU under the hospitalist service and now Pulmonary service consulted for
additional management/recommendations.
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
of SCC on forehead, history of pneumonia, hypertension, history of PR, osteoporosis, depression/anxiety, colonic polyps, history of anemia
Impression:
#Acute COPD exacerbation
#Acute on chronic respiratory failure with hypoxia + hypercapnia (only mild respiratory acidosis)
#Metabolic alkalosis due to compensation from chronic hypercapnia
#Elevated proBNP
#Severe pulmonary hypertension (RVSP: 75 mmHg via echo in July 2024 at outside institution)
#Chronic HFpEF
#Abnormal TFTs with reduced TSH and normal free T4, likely due to euthyroid sick syndrome
#Class IV COPD on chronic prednisone 10 mg daily, Daliresp, Zithromax TID, Brovana + budesonide BID and Yupelri with prn DuoNebs
#Multiple lung nodules with largest 2.4 cm in left base - concerning for malignancy
#Former tobacco smoker ([id number] history, quit at age 50)
#Hypertension
#Hyperlipidemia
#Chronic anemia
Plan:
- Patient developed SOB with increased heart rate and general malaise few days ago; denies any recent sick contacts. She also has chest congestion
- She has areas of groundglass seen in the left upper lobe, however this could very well be mosaic attenuation from air trapping; no evidence of pneumonia seen on imaging, also no concern for acute decompensated heart failure despite elevated
proBNP which may very well be due to pulmonary hypertension.
- Concern for COPD exacerbation possibly related to viral URI
- Solu-Medrol x 2 doses. Clinically improved. Prednisone 40 mg with a slow taper going forward.
- Continue with budesonide + DuoNebs; prn nebulized bronchodilators (not currently bronchospastic)
- Continue with Daliresp
- No evidence for pneumonia on CAT scan.
- W negative procalcitonin 03/06/2025-discontinue antibiotics.
- May complete 5 days of doxycycline
- resume Zithromax TIW (QTc: 467 ms from admission EKG)-upon discharge.
- Check echo to assess right-sided pressure, valve function, LVEF, etc-pending.
Pulmonary hypertension likely due to underlying advanced emphysema/COPD and chronic hypercapnic respiratory failure.-
- Prior echo was performed on 07/25/2024 via her yarn wrapper, Dr. Kaplan, showing LVEF 65-70% with no regional WMA, with RV mild dilation with reduced RV systolic function, moderately dilated RA and severely elevated RVSP at 75 mmHg
- Continue supplemental oxygen, titrating to maintain SpO2 88-95%
- At home she has been using between 2-3 L/min at rest, and 3-3.5 L/min with activity.
- She uses and ASTRAL ventilator for chronic hypercapnia
- Continue BiPAP while she is hospitalized-mental status baseline. VBG suspect compensated hypercapnic respiratory failure.
- She does have multiple pulmonary nodules predominantly in the left base - concerning for malignancy.
Dr. Steve discussed with daughter and patient in detail-unlikely that this patient will tolerate complication from biopsies or even therapy. They both agree, patient is very limited and has difficulty going to appointments. Will be an ongoing
discussion in the outpatient setting.
- Outside imaging at [facility] via CTA chest on 07/24/2024 does not mention any nodules in the report. Negative for pulmonary embolism. Ideally, we would review the images ourselves. Will ask the family to see if they can get a disc so that
we can review these images directly
- Incentive spirometer encouraged q1hr while awake
-
Monitor blood sugars particularly on high-dose of steroids. Physical therapy/Occupational Therapy.
- DVT ppx: LMWH
Code status: DNR/DNI-palliative care has been discussed with the patient in the past.
Pulmonary service will continue to follow along. Patient already has follow-up arranged with Dr. Steve for 03/23/2025 at 9 AM (last visit 11/17/2024). Patient was encouraged to keep his appointment, especially given her abnormal CT chest findings
with new lung nodules.
Data:
CTA Chest 03/06/2025:
1. No evidence of pulmonary embolism or thoracic aortic dissection.
2. Multiple lung nodules within the lower lung zones, measuring up to 2.4 cm in diameter. Nodules are highly concerning for bronchogenic or metastatic malignancy. Differential diagnosis includes rounded atelectasis. Consider PET/CT and/or follow-up
CT chest.
3. Severe emphysema.
4. Wall thickening of the distal esophagus, which may be related to gastroesophageal reflux or Reaves's esophagus.
5. Compression fractures of the T4 and T7 vertebral bodies, likely chronic.
Spirometry: 01/29/2024: Very severe COPD with postbronchodilator FEV1 0.23 L / 12% predicted. Also very severe restrictive lung defect with postbronchodilator FVC: 0.75 L / 29% predicted. Pre-bronchodilator efforts were not repeatable, and there
was not enough acceptable maneuvers during post-BD testing.
Outside Imaging - [facility]
CTA chest 07/24/2024: Comparison to CXR on 07/17/2023: Suboptimal contrast opacification of pulmonary arteries. No definite segmental or subsegmental pulmonary artery embolus but incomplete evaluation. Enlarged main pulmonary artery measuring 3.9
cm. Severe emphysema. Diffuse interlobular septal thickening. Bibasilar airspace disease likely atelectasis. Moderate bilateral pleural effusions. Multilevel compression deformities of thoracic spine most likely chronic.
CT abdomen/pelvis 01/15/[address] abdomen/pelvis on 05/30/2017: Images of the lung bases reveal the presence of bullous emphysematous changes. Stable mild thickening of the appendix with no evidence for appendiceal inflammatory
changes.
-
High risk situation
Palliative care has been recommended in the past.
Subjective Data
-
Date of Service:
Date of Service: March 07, 2025
Objective Data
Data Reviewed
Vital Signs / I&O / Oxygen:
Vital Signs
Temp Pulse Resp BP Pulse Ox
98.4 F 75 27 127/59 95
03/07/25 07:36 03/07/25 10:00 03/07/25 10:00 03/07/25 10:00 03/07/25 10:05
Intake and Output
03/06/25 03/07/25 03/08/25
06:59 06:59 06:59
Intake Total 400 / 400 120 / 120
Output Total 350 / 350
Balance 50 / 50 120 / 120
SaO2 95
Nasal Cannula flow liters per 4
minute
Labs/Micro/Reports
Lab Data
03/07/25 05:22
03/07/25 05:22
Microbiology
03/05/25 21:22 Nasal Swab Influenza Types A & B (VIANNEY) - Final
Negative for Influenza A & B, NAAT
Negative results must be combined with clinical observations
and patient history.
Nucleic Acid Amplification test (NAAT)performed on the
[employer] platform.
--- NOTE | 2025-03-07 13:34 | W.PN.HOSP.TC ---
Today's Communication/Plan
-
steroid wean
nebs
o2 goal 88%
PT/OT
Cont doxy
F/u ECHO
Assessment / Plan
Assessment / Plan
Physical Exam
General: Other (84y F in mild distress due to dyspnea.)
HEENT: Moist mucous membranes and PERRLA
Respiratory: Other (Decreased BS bilaterally.no audible wheezing No rales / rhonchi.)
Cardiac: S1/S2, Regular Rhythm, Tachycardia and Murmur (II/ IVETTE)
GI: Soft, Non Tender, Non Distended and Normal Bowel Sounds
Musculoskeletal: No Clubbing, No Cyanosis and No Edema
Neuro: AO x 3
A/P: Patient is an 84y F with PMH significant for COPD, ASCVD and CHF who presents to ED complaining of increased SOB for the past 3 days.
Acute on Chronic Hypoxemic Respiratory Failure
Acute on Chronic Hypercapnic Respiratory Failure
Advanced Stage COPD, GOLD Stage IV
COPD exacerbation
-mentating well despite elevated CO2 on VBG; more than likely lives at higher Co2 level
-recently on 3.5L O2 at home
?Underlying metastatic malignancy- i suspect this is triggering response
- Admit for further evaluation and treatment.
- Increased work of breathing with increased O2 needs.
- Treat for COPD +/- atypical infection with IV steroids, nebs, abx, etc.
- BiPAP at HS as tolerated.
-DC ceftriaxone, no evidence of infection
- Continue Doxy x 5 days
-Solumedrol - can transition to pred tomorrow tih slow taper
- Continue usual roflumilast and inhaled medications.
- Pulmonary evaluation for additional recommendations.
-Incentive Flaco, Acapella
-Chronically on 3.5L o2; assess with ambulation daily; Goal o2 >88%
#Multiple lung nodules with largest 2.4 cm in left base - concerning for malignancy
-Poor performance candidate with End stage COPD for further work up or intervention
-Decision will be made outpatient for further work up if desired/change trajectory of clinical status
Chronic HF - Unknown Type
#Severe Pulmonary Htn
- ? HFrEF as family states 'her heart only works 20%'.
- No evidence on exam of volume overload.
- Continue current regimen of bumetanide and Farxiga without changes.
- Follow I/Os, daily weights, etc.
- Check Echo.
ASCVD
- L sided chest discomfort / 'rib pain' reported by patient.
- Suspect possible 2/2 to ?malignancy and pleuritic chest pain
- EKG without evident ischemia. Initial troponin undetectable.
- Continue ASA uninterrupted. Continue statin.
Anxiety / Depression
- Stable. Continue sertraline.
DVT Prophylaxis: Lovenox
Code Status: DNR
Anticipated Discharge: 24 - 48 hours
Subjective/Interval History
-
Date of Service: March 07, 2025
Improvement in respiratory status
Objective Data
-
Labs:
Laboratory Results
03/07/25
05:22
WBC 5.8
Hgb 9.6 L
Hct 32.7 L
Plt Count 188
Sodium 141
Potassium 4.7
Chloride 98
Carbon Dioxide 41 H
BUN 34 H
Creatinine 0.7
Glucose 101 H
Calcium 8.9
Total Bilirubin 0.4
AST 19
ALT 12
Alkaline Phosphatase 40
Vital Signs:
Vital Signs
Temp Pulse Resp BP Pulse Ox
98.5 F 87 19 120/58 85
03/07/25 12:05 03/07/25 12:00 03/07/25 12:00 03/07/25 12:00 03/07/25 13:19
I&O
03/06/25 03/07/25 03/08/25
06:59 06:59 06:59
Intake Total 400 / 400 120 / 120
Output Total 350 / 350
Balance 50 / 50 120 / 120
Review of Systems
-
History Source: Patient
All other systems: Not reviewed unless documented
Physical Exam
-
General: No Apparent Distress
HEENT: Normocephalic and Atraumatic
Respiratory: Negative Wheezes
Cardiac: Regular Rhythm and S1/S2
GI: Soft
Neuro: AO x 3
Psych: Calm
Data Reviewed
-
Total Time Spent with Patient (in minutes): 41
CT Scan: Report Reviewed by me
Labs: Labs Reviewed by me
--- NOTE | 2025-03-07 14:25 | PTCARENOTE ---
Patients pulse ox 93% on 3.5 liters oxygen at this time. Pulse ox drops to 85% with activity. Patient is having mild anxiety regarding diagnosis, refused Ativan when offered. Therapeutic communication provided. Patients pain from this morning is
resolved after Simethicone and Miralax, and having a bowel movement. Eating >50% of meals today. Fatigued, resting in bed at this time.
[2025-03-07] MEDS: PEPCID 20 MG PO (15:48)
[2025-03-07] MEDS: LOVENOX 40 MG SC (16:59)
[2025-03-07] MEDS: CRESTOR 10 MG PO (16:59)
--- NOTE | 2025-03-07 17:31 | CM ---
Patient with Dx COPD exacerbation, Multiple lung nodules, possible HF. Echo today. O2 3L midflow. Receiving Bumex, PO Abx, IV Solumedrol. PT recommends skilled rehab.
Met with patient and a friend who was visiting;
patient [place] and able to converse.
The patient resides on a rotational monthy basis with her 2 daughters and is unsure which Dtr's house she will go home to.
She is currently staying with Dtr Katie in her 1 story condo with [address].
The patient has been assisted with ADLs by a private caregiver 2 hrs in the morning.
She ambulates with a RW, also uses w/c at home.
DME - RW, w/c, hearing aides, home O2 concentrator/portables
Prior VN possibly [facility]
SNF - [facility]
PCP - Henry Pena
Pharmacy - [facility] [address], [place]
Patient wanted to discuss short term SNF for rehab - provided SNF list and discussed local facilities/provided ratings.
She will discuss with her daughters and let CM know her preferences.
Plan follow up with patient for SNF preferences.
--- NOTE | 2025-03-07 20:00 | PTCARENOTE ---
Patient received sitting up in chair, awake and alert watching TV. Assisted to BSC, voids without difficulty. Partial cares, partial linen change. Assisted back to bed; patient c/o feeling tired. See leak patcher charted on worklist flowsheet. BBS
diminished t/o with intermittent expiratory wheezes in BUL. Pulses positive x 4 extremitities, feet cold and pale. S1S2 regular with positive murmur. Abdomen soft. Denies pain, CP, SOB or N/V. Very KEBEDE. Mild to moderate recovery period. Sats well on
3.5L/nc. Anxious at timjes. Emotional support and encouragement provided. Bed in low and locked position, bed alarm on, call srivastava within reach.
[2025-03-07] MEDS: TYLENOL 650 MG PO (20:46)
--- NOTE | 2025-03-07 21:45 | PTCARENOTE ---
Patient briefly attempted BIPAP but appeared to have a panic attack--pulled off BIPAP. Oxygen at 3.5L/nc replaced. Offered Ativan for anxiety. Patient declines. She c/o BIGGS, medicated with Tylenol. States that she would try BIPAP again after a while.
At 2230, BIPAP placed with 4L oxygen bleed in.
[2025-03-08] VITALS (12 sets, daily range): BP systolic 110–124; BP diastolic 52–72; PULSE 91; O2SAT 95; BMI 24.8
--- NOTE | 2025-03-08 | PTCARENOTE ---
Patient wants BIPAP removed. Oxygen at 3.5L replaced.
At 0050, noted that oxygen saturation hovering around 86-87%, oxygen increased to 5L/nc.
0100, no improvement in oxygenation, sats 84%. Oxygen increased to 6L/nc briefly--Patient repositioned in bed. BBS diminished t/o, no wheezes.
Les FORREST notified of patient current clinical status and patient's refusal of BIPAP.
At 0130, patient oxygenation started to improve and oxygen decreased to 3.5L/nc.
[2025-03-08] MEDS: MELATONIN 1.5 MG PO (00:50)
[2025-03-08 05:06] LABS: Hematocrit 34.6 % (37.0-47.0); Hemoglobin 10.4 g/dL (12.0-16.0); Mean Corp Hgb Conc. 30.1 g/dL (33.0-37.0); Mean Corpuscular Volume 90.6 fL (81.0-99.0); Platelet Count 226 10^3/uL (130-400); Red Cell Dist. Width 17.7 % (11.5-14.5)
[2025-03-08 05:22] LABS: ALT (SGPT) 11 U/L (0-35); AST (SGOT) 15 U/L (14-36); Albumin 3.6 g/dl (3.5-5.0); Alkaline Phosphatase 48 U/L (38-126); Blood Urea Nitrogen 45 mg/dl (7-17); Calcium 9.3 mg/dl (8.4-10.2); Chloride 97 mmol/L (98-107); Estimated Creatinine Clearance 47 ml/min; Glucose 124 mg/dl (70-99); Magnesium 2.1 mg/dl (1.6-2.3); Potassium 4.5 mmol/L (3.5-5.1); Sodium 141 mmol/L (135-145); Total Protein 5.8 g/dl (6.3-8.2); eGFR > 60.00
[2025-03-08 05:31] LABS: Carbon Dioxide 43 mmol/L (22-30)
--- NOTE | 2025-03-08 07:16 | PTCARENOTE ---
Report given verbally to Iain douglass RN. Questions answered.
[2025-03-08] MEDS: PULMICORT 0.5 MG INH ×2 (07:34→19:25)
[2025-03-08] MEDS: DUONEB 3 ML INH ×4 (07:34→19:25)
[2025-03-08] MEDS: VIBRAMYCIN 100 MG PO ×2 (08:47→19:22)
[2025-03-08] MEDS: BYSTOLIC 5 MG PO (08:47)
[2025-03-08] MEDS: FARXIGA 10 MG PO (08:48)
[2025-03-08] MEDS: DELTASONE 40 MG PO (08:48)
[2025-03-08] MEDS: DALIRESP 500 MCG PO (08:49)
[2025-03-08] MEDS: PEPCID 20 MG PO (08:49)
[2025-03-08] MEDS: ZOLOFT 75 MG PO (08:50)
[2025-03-08] MEDS: ASPIR LOW (ENTERIC COATED) 81 MG PO (08:51)
[2025-03-08] MEDS: BUMEX 0.5 MG PO (08:55)
[2025-03-08] MEDS: PROTONIX 40 MG PO (09:03)
--- NOTE | 2025-03-08 10:30 | W.PN.PUL3 ---
Today's Communication / Plan
-
Prednisone taper decrease by 10 mg every 72 hours to baseline
Continue nebulizer regimen-Home regimen.
Restart azithromycin 3 times per week after completing doxycycline.
5 days of doxycycline for bronchitis.
Continue O2 supplementation at baseline
Lung nodules: Discussed with patient at this point hold off on further evaluation. Unlikely to benefit/tolerate from aggressive therapy. Discussed with daughter and patient.
Physical therapy/Occupational Therapy-[facility].
Patient more agreeable to hear about palliative care-will consult
Hopefully discharge soon-discussed with primary team.
Assessment
-
Assessment: 84-year-old female with a past medical history of end-stage COPD on home oxygen and chronic prednisone 10 mg daily, chronic hypoxic/hypercapnic respiratory failure with nocturnal NIV dependence, centrilobular/paraseptal emphysema, CAD
with history of IA and robotic bypass (May 2019), history of melanoma on face + toe, history of SCC on forehead, history of pneumonia, hypertension, history of IA, osteoporosis, depression/anxiety, colonic polyps, and history of anemia who
presents with worsening SOB + fast heart rate. She is chronically on home oxygen, now on 3-3.5 L/min ATC. She uses NIV with sleep due to chronic hypercapnia, although has poor tolerance of this, only able to use it for couple hours per night.
About 3 days ago she began to feel short of breath and just general fatigue. She checks her vitals at home via a pulse oximeter and her heart rate has been as high as 100�110 and normally she is between 50�70. No recent sick contacts, and no
recent change in medications. She does also endorse chest congestion but difficulty bringing up any phlegm. In the ER she was afebrile with pulse rate 101, respiratory rate 20, BP 133/64 and saturating 97% on 3 L/min nasal cannula. Pertinent labs
showed normal WBC at 6.8, Hb 11.4, blood gas with pH 7.3, pCO2 77, pO2 72 and O2 saturation 95.8%, serum bicarbonate level 38, proBNP 1380, and COVID-19 antigen negative. Flu swab was also negative. CXR shows patchy parenchymal opacities in the
lower lobes, predominantly left lower lobe, concerning for pneumonia. In the ER she was given Decadron, DuoNebs, doxycycline, Zofran and Tylenol. She was admitted to the IMU under the hospitalist service and now Pulmonary service consulted for
additional management/recommendations.
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
of SCC on forehead, history of pneumonia, hypertension, history of IA, osteoporosis, depression/anxiety, colonic polyps, history of anemia
Impression:
#Acute COPD exacerbation
#Acute on chronic respiratory failure with hypoxia + hypercapnia (only mild respiratory acidosis)
#Metabolic alkalosis due to compensation from chronic hypercapnia
#Elevated proBNP
#Severe pulmonary hypertension (RVSP: 75 mmHg via echo in July 2024 at outside institution)
#Chronic HFpEF
#Abnormal TFTs with reduced TSH and normal free T4, likely due to euthyroid sick syndrome
#Class IV COPD on chronic prednisone 10 mg daily, Daliresp, Zithromax TID, Brovana + budesonide BID and Yupelri with prn DuoNebs
#Multiple lung nodules with largest 2.4 cm in left base - concerning for malignancy
#Former tobacco smoker (70-dbbx-leww history, quit at age 50)
#Hypertension
#Hyperlipidemia
#Chronic anemia
Plan:
- Patient developed SOB with increased heart rate and general malaise few days ago; denies any recent sick contacts. She also has chest congestion
- She has areas of groundglass seen in the left upper lobe, however this could very well be mosaic attenuation from air trapping; no evidence of pneumonia seen on imaging, also no concern for acute decompensated heart failure despite elevated
proBNP which may very well be due to pulmonary hypertension.
- Suspect COPD exacerbation possibly related to viral URI
- Solu-Medrol x 2 doses. Clinically improved. Prednisone 40 mg will decrease by 10 mg every 72 hours to baseline.
- Continue with budesonide + DuoNebs; prn nebulized bronchodilators.(Home regimen)
- Continue with Daliresp
- No evidence for pneumonia on CAT scan.
- W negative procalcitonin 03/06/2025-discontinue antibiotics.
- May complete 5 days of doxycycline for bronchitis.
- resume Zithromax TIW (QTc: 467 ms from admission EKG)-upon discharge.
-
Patient appears euvolemic: No indication for aggressive diuresis.
Repeat echocardiogram 03/07/2025: Normal LVEF. Normal biventricular size. Mild right atrial dilatation. Trace MR. Mild to moderate aortic stenosis. Mild TR with estimated pulmonary pressure 40 to 45 mmHg..
Pulmonary hypertension likely due to underlying advanced emphysema/COPD and chronic hypercapnic respiratory failure.
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 Kaplan, showing LVEF 65-70% with no regional WMA, with RV mild dilation with reduced RV systolic function, moderately dilated RA and severely elevated RVSP at 75 mmHg.
-
Continue supplemental oxygen, titrating to maintain SpO2 88-95%
- At home she has been using between 2-3 L/min at rest, and 3-3.5 L/min with activity.
- She uses and ASTRAL ventilator for chronic hypercapnia
- Continue BiPAP while she is hospitalized-mental status baseline. VBG suspect compensated hypercapnic respiratory failure.
- She does have multiple pulmonary nodules predominantly in the left base - concerning for malignancy.
Dr. Steve discussed with daughter and patient in detail 03/07/2025-unlikely that this patient will tolerate complication from biopsies or even therapy. They both agree, patient is very limited and has difficulty going to appointments. Will be an
ongoing discussion in the outpatient setting.
- Outside imaging at [facility] via CTA chest on 07/24/2024 does not mention any nodules in the report. Negative for pulmonary embolism. Ideally, we would review the images ourselves. Will ask the family to see if they can get a disc so that
we can review these images directly
-
Incentive spirometer encouraged q1hr while awake
-
Monitor blood sugars particularly on high-dose of steroids.
-
Physical therapy/Occupational Therapy. Patient has deconditioning component.
- DVT ppx: LMWH
Code status: DNR/DNI-palliative care has been discussed with the patient in the past.
Pulmonary service will continue to follow along. Patient already has follow-up arranged with Dr. Steve for 03/23/2025 at 9 AM (last visit 11/17/2024). Patient was encouraged to keep his appointment, especially given her abnormal CT chest findings
with new lung nodules.
Data:
CTA Chest 03/06/2025:
1. No evidence of pulmonary embolism or thoracic aortic dissection.
2. Multiple lung nodules within the lower lung zones, measuring up to 2.4 cm in diameter. Nodules are highly concerning for bronchogenic or metastatic malignancy. Differential diagnosis includes rounded atelectasis. Consider PET/CT and/or follow-up
CT chest.
3. Severe emphysema.
4. Wall thickening of the distal esophagus, which may be related to gastroesophageal reflux or Reaves's esophagus.
5. Compression fractures of the T4 and T7 vertebral bodies, likely chronic.
Spirometry: 01/29/2024: Very severe COPD with postbronchodilator FEV1 0.23 L / 12% predicted. Also very severe restrictive lung defect with postbronchodilator FVC: 0.75 L / 29% predicted. Pre-bronchodilator efforts were not repeatable, and there
was not enough acceptable maneuvers during post-BD testing.
Outside Imaging - [facility]
CTA chest 07/24/2024: Comparison to CXR on 07/17/2023: Suboptimal contrast opacification of pulmonary arteries. No definite segmental or subsegmental pulmonary artery embolus but incomplete evaluation. Enlarged main pulmonary artery measuring 3.9
cm. Severe emphysema. Diffuse interlobular septal thickening. Bibasilar airspace disease likely atelectasis. Moderate bilateral pleural effusions. Multilevel compression deformities of thoracic spine most likely chronic.
CT abdomen/pelvis 01/15/[address] abdomen/pelvis on 05/30/2017: Images of the lung bases reveal the presence of bullous emphysematous changes. Stable mild thickening of the appendix with no evidence for appendiceal inflammatory
changes.
-
High risk situation
Palliative care has been recommended in the past.
Subjective Data
-
Date of Service:
Date of Service: March 08, 2025
Chief Complaint: Pulmonary Follow Up (Acute exacerbation of COPD/lung nodule)
Subjective:
Feels better
Less tachycardic
Denies worsening phlegm production or hemoptysis
Patient does have chronic exertional dyspnea with minimal efforts.
Review of Systems
General: Fever (n)
Cardiopulmonary: Dyspnea (improved)
GI: Abdominal Pain (n)
Objective Data
Data Reviewed
Vital Signs / I&O / Oxygen:
Vital Signs
Temp Pulse Resp BP Pulse Ox
98.5 F 87 18 120/57 97
03/08/25 07:52 03/08/25 09:00 03/08/25 09:00 03/08/25 08:47 03/08/25 09:39
Intake and Output
03/07/25 03/08/25 03/09/25
06:59 06:59 06:59
Intake Total 400 / 400 360 / 360 240 / 240
Output Total 350 / 350 700 / 700
Balance 50 / 50 -340 / -340 240 / 240
SaO2 97
Nasal Cannula flow liters per 3
minute
Physical Exam
General: Comfortable
HEENT: Normocephalic
Cardiovascular: S1-S2
Respiratory: Non-Labored Respirations and Other (Prolonged expiratory phase bilaterally)
GI: Soft and Non Distended
Neurology: Awake and Alert
Skin: Warm
Labs/Micro/Reports
Lab Data
03/08/25 04:11
07/29/25 04:11
Microbiology
03/05/25 21:22 Nasal Swab Influenza Types A & B (VIANNEY) - Final
Negative for Influenza A & B, NAAT
Negative results must be combined with clinical observations
and patient history.
Nucleic Acid Amplification test (NAAT)performed on the
[employer] platform.
--- NOTE | 2025-03-08 11:25 | PTCARENOTE ---
Pt ambulated on 3 l O2 and POX dropped to 89% Dr blackwell aware
--- NOTE | 2025-03-08 13:48 | CM ---
Addendum entered by Ginetet Doyle RN 03/08/25 16:24:
Spoke with Jose [facility]; she is unsure if they can accept with the need for the astral vent HS. She needs to check with her local area network administrator and will let CM know tomorrow.
Spoke with patient's daughter Angely; provided update that response from [facility] is pending, and that [facility] has also said they could accept. Daughter agrees with referral to Outpt Palliative Care- referral placed.
Plan follow up with [facility] SNF tomorrow.
Original Note:
Patient with Dx COPD exacerbation, Multiple lung nodules, possible HF. O2 3L. BiPAP. Receiving Bumex, PO Abx. PT recommends skilled rehab.
Message from Dr Rob Dean; no BiPAP setup needed for SNF, she will be using her own astral ventilator. Patient would like to see Palliative Care - agree to outpatient referral.
Met with patient, daughter Angely and MALLIKA; patient & daughter agree to short term SNF for rehab. Their preference is [facility] in [facility]. Addl choices are [facility], [facility], [facility], [place]
[facility]. Answered their questions about SNF referral process. Family aware MD indicated patient may be ready for d/c tomorrow.
SNF referrals plcaed.
Spoke with Jose Blair; she has an available bed and will review the referral.
Plan follow up SNF referrals.
--- NOTE | 2025-03-08 14:30 | PTCARENOTE ---
Resumed care from previous shift. Patient A&Ox4, on NC 3L, NSR w/ PACs, BP WNL, GI/ continent x 1 person assistance, all needs addressed. RT at bedside educating patient on CPAP compliance.
--- NOTE | 2025-03-08 15:38 | W.PN.HOSP.TC ---
Today's Communication/Plan
-
Pred taper;
Doxycycline
nebulizers
Wean o2 as tolerated
PT/OT - patient ready for DC - CM aware
Assessment / Plan
Assessment / Plan
Physical Exam
General: Other (84y F in mild distress due to dyspnea.)
HEENT: Moist mucous membranes and PERRLA
Respiratory: Other (Decreased BS bilaterally.no audible wheezing No rales / rhonchi.)
Cardiac: S1/S2, Regular Rhythm, Tachycardia and Murmur (II/ IVETTE)
GI: Soft, Non Tender, Non Distended and Normal Bowel Sounds
Musculoskeletal: No Clubbing, No Cyanosis and No Edema
Neuro: AO x 3
A/P: Patient is an 84y F with PMH significant for COPD, ASCVD and CHF who presents to ED complaining of increased SOB for the past 3 days.
Acute on Chronic Hypoxemic Respiratory Failure
Acute on Chronic Hypercapnic Respiratory Failure
Advanced Stage COPD, GOLD Stage IV
COPD exacerbation
-mentating well despite elevated CO2 on VBG; more than likely lives at higher Co2 level
-recently on 3.5L O2 at home
?Underlying metastatic malignancy- i suspect this is triggering response
- Admit for further evaluation and treatment.
- Increased work of breathing with increased O2 needs.
- Treat for COPD +/- atypical infection with IV steroids, nebs, abx, etc.
- BiPAP at HS as tolerated.
-DC ceftriaxone, no evidence of infection
- Continue Doxy x 5 days; Restart azithromycin 3 times per week after completing doxycycline.
-Solumedrol - Prednisone taper decrease by 10 mg every 72 hours to baseline
- Continue usual roflumilast and inhaled medications.
- Pulmonary evaluation for additional recommendations.
-Incentive Graff, Acapella
-Chronically on 3.5L o2; assess with ambulation daily; Goal o2 >88%
#Multiple lung nodules with largest 2.4 cm in left base - concerning for malignancy
-Poor performance candidate with End stage COPD for further work up or intervention
-Decision will be made outpatient for further work up if desired/change trajectory of clinical status - patient leaning towards not performing bx due to risks and questionable benefit
#Severe Pulmonary Htn
- No evidence on exam of volume overload.
- Continue current regimen of bumetanide and Farxiga without changes.
- Follow I/Os, daily weights, etc.
- Check Echo: EF 65-70%;
ASCVD
- L sided chest discomfort / 'rib pain' reported by patient.
- Suspect possible 2/2 to ?malignancy and pleuritic chest pain
- EKG without evident ischemia. Initial troponin undetectable.
- Continue ASA uninterrupted. Continue statin.
Anxiety / Depression
- Stable. Continue sertraline.
DVT Prophylaxis: Lovenox
Code Status: DNR
Anticipated Discharge: Within 24 hours
Subjective/Interval History
-
Date of Service: March 08, 2025
feeling better
Objective Data
-
Labs:
Laboratory Results
03/08/25
04:11
WBC 6.7
Hgb 10.4 L
Hct 34.6 L
Plt Count 226 D
Sodium 141
Potassium 4.5
Chloride 97 L
Carbon Dioxide 43 H
BUN 45 H
Creatinine 0.8
Glucose 124 H
Calcium 9.3
Total Bilirubin 0.4
AST 15
ALT 11
Alkaline Phosphatase 48
Vital Signs:
Vital Signs
Temp Pulse Resp BP Pulse Ox
98.2 F 89 18 115/57 97
03/08/25 11:00 03/08/25 15:09 03/08/25 15:09 03/08/25 12:00 03/08/25 15:09
I&O
03/07/25 03/08/2525
06:59 06:59 06:59
Intake Total 400 / 400 360 / 360 240 / 240
Output Total 350 / 350 700 / 700
Balance 50 / 50 -340 / -340 240 / 240
Review of Systems
-
History Source: Patient
All other systems: Not reviewed unless documented
Physical Exam
-
General: No Apparent Distress
HEENT: Normocephalic and Atraumatic
Respiratory: Negative Wheezes
Cardiac: Regular Rhythm and S1/S2
GI: Soft
Neuro: AO x 3
Psych: Calm
Data Reviewed
-
Total Time Spent with Patient (in minutes): 41
CT Scan: Report Reviewed by me
Labs: Labs Reviewed by me
[2025-03-08] MEDS: CRESTOR 10 MG PO (18:16)
[2025-03-08] MEDS: LOVENOX 40 MG SC (18:16)
--- NOTE | 2025-03-08 18:30 | PTCARENOTE ---
This RN walked with the patient in the hallway on NC 3L, short breaks taken during the walk, no desaturation seen.
[2025-03-08] MEDS: ATIVAN 0.5 MG PO (21:34)
[2025-03-09] VITALS (12 sets, daily range): BP systolic 100–136; BP diastolic 49–90; BMI 26.2
--- NOTE | 2025-03-09 05:06 | PTCARENOTE ---
Pt agreeable to wear home CPAP at bedtime. Did express anxiety prior to going to sleep, medicated per MAR. Denies additional complaints at that time. CPAP alarming high leakage with desat to 80s. Respiratory contacted and adjusted mask with
improvement. Call srivastava within reach. Pt demonstrates use. Care ongoing.
[2025-03-09 06:12] LABS: Hematocrit 35.4 % (37.0-47.0); Hemoglobin 10.5 g/dL (12.0-16.0); Mean Corp Hgb Conc. 29.7 g/dL (33.0-37.0); Mean Corpuscular Volume 89.4 fL (81.0-99.0); Platelet Count 219 10^3/uL (130-400); Red Cell Dist. Width 18.1 % (11.5-14.5)
[2025-03-09 06:30] LABS: ALT (SGPT) 11 U/L (0-35); AST (SGOT) 14 U/L (14-36); Albumin 3.7 g/dl (3.5-5.0); Alkaline Phosphatase 43 U/L (38-126); Blood Urea Nitrogen 48 mg/dl (7-17); Calcium 9.4 mg/dl (8.4-10.2); Chloride 97 mmol/L (98-107); Estimated Creatinine Clearance 47 ml/min; Glucose 102 mg/dl (70-99); Potassium 3.9 mmol/L (3.5-5.1); Sodium 143 mmol/L (135-145); Total Protein 5.8 g/dl (6.3-8.2); eGFR > 60.00
[2025-03-09 06:43] LABS: Carbon Dioxide 44 mmol/L (22-30)
[2025-03-09] MEDS: PULMICORT 0.5 MG INH ×2 (07:51→19:48)
[2025-03-09] MEDS: DUONEB 3 ML INH ×4 (07:51→19:48)
[2025-03-09] MEDS: VIBRAMYCIN 100 MG PO ×2 (08:33→19:58)
[2025-03-09] MEDS: PEPCID 20 MG PO (08:33)
[2025-03-09] MEDS: ZOLOFT 75 MG PO (08:33)
[2025-03-09] MEDS: ASPIR LOW (ENTERIC COATED) 81 MG PO (08:33)
[2025-03-09] MEDS: BYSTOLIC 5 MG PO (08:34)
[2025-03-09] MEDS: FARXIGA 10 MG PO (08:34)
[2025-03-09] MEDS: BUMEX 0.5 MG PO (08:34)
[2025-03-09] MEDS: DALIRESP 500 MCG PO (08:34)
[2025-03-09] MEDS: PROTONIX 40 MG PO (08:35)
[2025-03-09] MEDS: DELTASONE 40 MG PO (08:35)
--- NOTE | 2025-03-09 11:22 | W.PN.PUL3 ---
Today's Communication / Plan
-
Cont. with current care.
Astral Vent as tolerated HS and naps.
DC planning.
Will sign off.
Assessment
-
Assessment: 84-year-old female with a past medical history of end-stage COPD on home oxygen and chronic prednisone 10 mg daily, chronic hypoxic/hypercapnic respiratory failure with nocturnal NIV dependence, centrilobular/paraseptal emphysema, CAD
with history of RI and robotic bypass (May 2019), history of melanoma on face + toe, history of SCC on forehead, history of pneumonia, hypertension, history of RI, osteoporosis, depression/anxiety, colonic polyps, and history of anemia who
presents with worsening SOB + fast heart rate. She is chronically on home oxygen, now on 3-3.5 L/min ATC. She uses NIV with sleep due to chronic hypercapnia, although has poor tolerance of this, only able to use it for couple hours per night.
About 3 days ago she began to feel short of breath and just general fatigue. She checks her vitals at home via a pulse oximeter and her heart rate has been as high as 100�110 and normally she is between 50�70. No recent sick contacts, and no
recent change in medications. She does also endorse chest congestion but difficulty bringing up any phlegm. In the ER she was afebrile with pulse rate 101, respiratory rate 20, BP 133/64 and saturating 97% on 3 L/min nasal cannula. Pertinent labs
showed normal WBC at 6.8, Hb 11.4, blood gas with pH 7.3, pCO2 77, pO2 72 and O2 saturation 95.8%, serum bicarbonate level 38, proBNP 1380, and COVID-19 antigen negative. Flu swab was also negative. CXR shows patchy parenchymal opacities in the
lower lobes, predominantly left lower lobe, concerning for pneumonia. In the ER she was given Decadron, DuoNebs, doxycycline, Zofran and Tylenol. She was admitted to the IMU under the hospitalist service and now Pulmonary service consulted for
additional management/recommendations.
Chronic conditions PRINTING SPECIALIST: End-stage COPD on home oxygen and chronic prednisone 10 mg daily, chronic hypoxic/hypercapnic respiratory failure with nocturnal NIV dependence, centrilobular/paraseptal emphysema, history of melanoma on face + toe, history
of SCC on forehead, history of pneumonia, hypertension, history of RI, osteoporosis, depression/anxiety, colonic polyps, history of anemia
Impression:
#Acute COPD exacerbation
#Acute on chronic respiratory failure with hypoxia + hypercapnia (only mild respiratory acidosis)
#Metabolic alkalosis due to compensation from chronic hypercapnia
#Elevated proBNP
#Severe pulmonary hypertension (RVSP: 75 mmHg via echo in July 2024 at outside institution)
#Chronic HFpEF
#Abnormal TFTs with reduced TSH and normal free T4, likely due to euthyroid sick syndrome
#Class IV COPD on chronic prednisone 10 mg daily, Daliresp, Zithromax TID, Brovana + budesonide BID and Yupelri with prn DuoNebs
#Multiple lung nodules with largest 2.4 cm in left base - concerning for malignancy
#Former tobacco smoker (24-drul-qavs history, quit at age 50)
#Hypertension
#Hyperlipidemia
#Chronic anemia
Plan:
- Patient developed SOB with increased heart rate and general malaise few days ago; denies any recent sick contacts. She also has chest congestion
- She has areas of groundglass seen in the left upper lobe, however this could very well be mosaic attenuation from air trapping; no evidence of pneumonia seen on imaging, also no concern for acute decompensated heart failure despite elevated
proBNP which may very well be due to pulmonary hypertension.
- Suspect COPD exacerbation possibly related to viral URI
- Clinically improved. Prednisone 40 mg will decrease by 10 mg every 72 hours to baseline.
- Continue with budesonide + DuoNebs; prn nebulized bronchodilators.(Home regimen)
- Continue with Daliresp
- No evidence for pneumonia on CAT scan.
- W negative procalcitonin 03/06/2025-discontinued antibiotics.
- May complete 5 days of doxycycline for bronchitis.
- resume Zithromax TIW (QTc: 467 ms from admission EKG)-upon discharge.
-
Patient appears euvolemic: No indication for aggressive diuresis.
Echocardiogram 03/07/2025: Normal LVEF. Normal biventricular size. Mild right atrial dilatation. Trace MR. Mild to moderate aortic stenosis. Mild TR with estimated pulmonary pressure 40 to 45 mmHg..
Pulmonary hypertension likely due to underlying advanced emphysema/COPD and chronic hypercapnic respiratory failure.
-Prior echo was performed on 07/25/2024 via her front desk admin, Dr. Kaplan, showing LVEF 65-70% with no regional WMA, with RV mild dilation with reduced RV systolic function, moderately dilated RA and severely elevated RVSP at 75 mmHg.
-
Continue supplemental oxygen, titrating to maintain SpO2 88-95%
- At home she has been using between 2-3 L/min at rest, and 3-3.5 L/min with activity.
- She uses and ASTRAL ventilator for chronic hypercapnia
- Continue BiPAP while she is hospitalized-mental status baseline. VBG suspect compensated hypercapnic respiratory failure.
- She does have multiple pulmonary nodules predominantly in the left base - concerning for malignancy.
Dr. Steve discussed with daughter and patient in detail 03/07/2025-unlikely that this patient will tolerate complication from biopsies or even therapy. They both agree, patient is very limited and has difficulty going to appointments. Will be an
ongoing discussion in the outpatient setting.
- Outside imaging at [facility] via CTA chest on 07/24/2024 does not mention any nodules in the report. Negative for pulmonary embolism. Ideally, we would review the images ourselves. Will ask the family to see if they can get a disc so that
we can review these images directly.
-
Incentive spirometer encouraged q1hr while awake
-
Monitor blood sugars particularly on high-dose of steroids.
-
Physical therapy/Occupational Therapy. Patient has deconditioning component.
- DVT ppx: LMWH
Code status: DNR/DNI-palliative care has been discussed with the patient in the past.
Agree with DC planning, discussed with CM. Working to get accepted at [facility].
More agreeable to palliative care, will refer in outpatient setting.
Patient already has follow-up arranged with Dr. Steve for 03/23/2025 at 9 AM (last visit 11/17/2024). Patient was encouraged to keep his appointment, especially given her abnormal CT chest findings with new lung nodules.
Data:
CTA Chest 03/06/2025:
1. No evidence of pulmonary embolism or thoracic aortic dissection.
2. Multiple lung nodules within the lower lung zones, measuring up to 2.4 cm in diameter. Nodules are highly concerning for bronchogenic or metastatic malignancy. Differential diagnosis includes rounded atelectasis. Consider PET/CT and/or follow-up
CT chest.
3. Severe emphysema.
4. Wall thickening of the distal esophagus, which may be related to gastroesophageal reflux or Reaves's esophagus.
5. Compression fractures of the T4 and T7 vertebral bodies, likely chronic.
Spirometry: 01/29/2024: Very severe COPD with postbronchodilator FEV1 0.23 L / 12% predicted. Also very severe restrictive lung defect with postbronchodilator FVC: 0.75 L / 29% predicted. Pre-bronchodilator efforts were not repeatable, and there
was not enough acceptable maneuvers during post-BD testing.
Outside Imaging - [facility]
CTA chest 07/24/2024: Comparison to CXR on 07/17/2023: Suboptimal contrast opacification of pulmonary arteries. No definite segmental or subsegmental pulmonary artery embolus but incomplete evaluation. Enlarged main pulmonary artery measuring 3.9
cm. Severe emphysema. Diffuse interlobular septal thickening. Bibasilar airspace disease likely atelectasis. Moderate bilateral pleural effusions. Multilevel compression deformities of thoracic spine most likely chronic.
CT abdomen/pelvis 01/15/[address] abdomen/pelvis on 05/30/2017: Images of the lung bases reveal the presence of bullous emphysematous changes. Stable mild thickening of the appendix with no evidence for appendiceal inflammatory
changes.
-
High risk situation
Palliative care has been recommended in the past.
Subjective Data
-
Date of Service:
Date of Service: March 09, 2025
Chief Complaint: Pulmonary Follow Up (Acute exacerbation of COPD/lung nodule)
Subjective:
No new pulmonary complaints.
Oxygen demands at baseline.
Review of Systems
Cardiopulmonary: Dyspnea (back to baseline), Sputum Production (n) and Wheezing (n)
GI: Abdominal Pain (n)
Objective Data
Data Reviewed
Vital Signs / I&O / Oxygen:
Vital Signs
Temp Pulse Resp BP Pulse Ox
98.2 F 94 18 136/64 96
03/09/25 07:00 03/09/25 08:34 03/09/25 07:55 03/09/25 08:34 03/09/25 08:41
Intake and Output
03/08/25 03/09/25 03/10/25
06:59 06:59 06:59
Intake Total 360 / 360 240 / 240
Output Total 700 / 700
Balance -340 / -340 240 / 240
SaO2 96
Nasal Cannula flow liters per 3
minute
Physical Exam
General: Comfortable
HEENT: Normocephalic
Cardiovascular: S1-S2
Respiratory: Non-Labored Respirations and Other (Prolonged expiratory phase bilaterally)
GI: Soft and Non Distended
Neurology: Awake and Alert
Skin: Warm
Labs/Micro/Reports
Lab Data
03/09/25 05:56
03/09/25 05:56
--- NOTE | 2025-03-09 13:00 | PTCARENOTE ---
Assumed care of patient at morning report. Pt is [place], alert and oriented x3. Received on 3L NC, tachypneic with minimal activity such as moving to sit on side of bed. Pt ambulates to BR with rolling walker and 1Assist, pt uses pursed lip breathing
with minimal activity. Lungs decreased throughout. sitting up in chair for breakfast. SR on monitor. Pt with no complaints of pain at this time. Discharge planning in progress, daughter was at bedside this am and aware of potential discharge today
--- NOTE | 2025-03-09 13:21 | CM ---
Patient with Dx COPD exacerbation, Multiple lung nodules, possible HF. O2 3L midflow. Patient using own Astral Vent HS. Receiving PO Abx. PT recommends skilled rehab.
Spoke with Luther Adms [facility]; they cannot accept due to the Astral Vent HS.
Spoke with Adm Marieloss [facility]; they are able to accept once insurance approves, and will hold the bed till tomorrow if insurance auth not provided today. She checked with her court administrator/nurse and they are able to accept with
patient's Astral Vent. The ph for report [phone], fax [phone].
Met with patient and spoke with daughter Angely on speaker phone in patient room; both agree to [facility] in [place] once insurance approves. IMM completed.
Request for SNF insurance auth initiated via [employer], Reference Number [id number]. Clinicals sent via Active Fax.
Phone call to Sameer Purcell contact; left message requesting insurance determination today.
Plan [facility] via ambulance once insurance approves.
--- NOTE | 2025-03-09 14:10 | W.PN.HOSP.TC ---
Today's Communication/Plan
-
DC ready, continue prednisone taper
NIV during naps and at night
Continue nebulizers, inhaler therapy
Assessment / Plan
Assessment / Plan
Physical Exam
General: Other (84y F in mild distress due to dyspnea.)
HEENT: Moist mucous membranes and PERRLA
Respiratory: Other (Decreased BS bilaterally.no audible wheezing No rales / rhonchi.)
Cardiac: S1/S2, Regular Rhythm, Tachycardia and Murmur (II/ IVETTE)
GI: Soft, Non Tender, Non Distended and Normal Bowel Sounds
Musculoskeletal: No Clubbing, No Cyanosis and No Edema
Neuro: AO x 3
A/P: Patient is an 84y F with PMH significant for COPD, ASCVD and CHF who presents to ED complaining of increased SOB for the past 3 days.
Acute on Chronic Hypoxemic Respiratory Failure
Acute on Chronic Hypercapnic Respiratory Failure
Advanced Stage COPD, GOLD Stage IV
COPD exacerbation
-mentating well despite elevated CO2 on VBG; more than likely lives at higher Co2 level
-recently on 3.5L O2 at home
?Underlying metastatic malignancy- i suspect this is triggering response
- Admit for further evaluation and treatment.
- Increased work of breathing with increased O2 needs.
- Treat for COPD +/- atypical infection with IV steroids, nebs, abx, etc.
- BiPAP at HS as tolerated.
-DC ceftriaxone, no evidence of infection
- Continue Doxy x 5 days; Restart azithromycin 3 times per week after completing doxycycline.
-Solumedrol - Prednisone taper decrease by 10 mg every 72 hours to baseline
- Continue usual roflumilast and inhaled medications.
- Pulmonary evaluation for additional recommendations.
-Incentive [place], Acapella
-Chronically on 3.5L o2; assess with ambulation daily; Goal o2 >88%
#Multiple lung nodules with largest 2.4 cm in left base - concerning for malignancy
-Poor performance candidate with End stage COPD for further work up or intervention
-Decision will be made outpatient for further work up if desired/change trajectory of clinical status - patient leaning towards not performing bx due to risks and questionable benefit
#Severe Pulmonary Htn
- No evidence on exam of volume overload.
- Continue current regimen of bumetanide and Farxiga without changes.
- Follow I/Os, daily weights, etc.
- Check Echo: EF 65-70%;
ASCVD
- L sided chest discomfort / 'rib pain' reported by patient.
- Suspect possible 2/2 to ?malignancy and pleuritic chest pain
- EKG without evident ischemia. Initial troponin undetectable.
- Continue ASA uninterrupted. Continue statin.
Anxiety / Depression
- Stable. Continue sertraline.
DVT Prophylaxis: Lovenox
Code Status: DNR
Anticipated Discharge: Within 24 hours
Subjective/Interval History
-
Date of Service: March 09, 2025
No acute events overnight
Objective Data
-
Labs:
Laboratory Results
03/09/25
05:56
WBC 6.4
Hgb 10.5 L
Hct 35.4 L
Plt Count 219
Sodium 143
Potassium 3.9
Chloride 97 L
Carbon Dioxide 44 H
BUN 48 H
Creatinine 0.8
Glucose 102 H
Calcium 9.4
Total Bilirubin 0.4
AST 14
ALT 11
Alkaline Phosphatase 43
Vital Signs:
Vital Signs
Temp Pulse Resp BP Pulse Ox
98.0 F 88 22 105/70 95
03/09/25 11:00 03/09/25 12:00 03/09/25 12:00 03/09/25 12:00 03/09/25 12:00
I&O
03/08/25 03/09/25 03/10/25
06:59 06:59 06:59
Intake Total 360 / 360 240 / 240
Output Total 700 / 700
Balance -340 / -340 240 / 240
Review of Systems
-
History Source: Patient
All other systems: Not reviewed unless documented
Physical Exam
-
General: No Apparent Distress
HEENT: Normocephalic and Atraumatic
Respiratory: Negative Wheezes
Cardiac: Regular Rhythm and S1/S2
GI: Soft
Neuro: AO x 3
Psych: Calm
Data Reviewed
-
Total Time Spent with Patient (in minutes): 41
CT Scan: Report Reviewed by me
Labs: Labs Reviewed by me
--- NOTE | 2025-03-09 15:06 | CHAP ---
Attempted 2x to provide emotional and spiritual support -- first time on the commode, second time with a friend. Will follow tomorrow.
[2025-03-09] MEDS: CRESTOR 10 MG PO (17:59)
[2025-03-09] MEDS: LOVENOX 40 MG SC (17:59)
--- NOTE | 2025-03-09 18:24 | PTCARENOTE ---
Patient dyspneic with exertion, becomes tachypneic with exertiona nd anxious at times. Pt wants to be discharged and wants to increase her activity level. Pt ambulated on unit with staff. Education ongoing regarding sodium intake, as she has salted
cashews at bedside and family brought in food from outside. Discussed hidden sodium content and fluid retention.
[2025-03-09] MEDS: ATIVAN 0.5 MG PO (19:58)
[2025-03-09] MEDS: TYLENOL 650 MG PO (20:48)
--- NOTE | 2025-03-09 20:56 | PTCARENOTE ---
While using the bathroom, the patient scraped her mid-back on the hose mechanism behind the toilet. Pt was assisted by PCT to stand safely with rw to finish using the restroom and ambulate back to bed. Pt mid-back with an abrasion that this RN
covered with a silicone border foam. Pt c/o mild pain at site, medicated with tylenol per OCT. Pt also with new redness under nose/nostril area, under nasal cannula. Small silicone border foam placed.
--- NOTE | 2025-03-09 21:00 | RESPNOTE ---
PT has a home vent as a BIPAP and she needs help with placement. She was placed on at this time.
[2025-03-10] VITALS (12 sets, daily range): BP systolic 100–133; BP diastolic 47–90; PULSE 82–84; O2SAT 97; BMI 24.7
[2025-03-10] MEDS: PULMICORT 0.5 MG INH ×2 (06:00→19:44)
[2025-03-10] MEDS: DUONEB 3 ML INH ×4 (06:00→19:44)
[2025-03-10 06:25] LABS: Hematocrit 34.4 % (37.0-47.0); Hemoglobin 10.4 g/dL (12.0-16.0); Mean Corp Hgb Conc. 30.2 g/dL (33.0-37.0); Mean Corpuscular Volume 89.4 fL (81.0-99.0); Platelet Count 213 10^3/uL (130-400); Red Cell Dist. Width 17.9 % (11.5-14.5)
[2025-03-10 07:23] LABS: ALT (SGPT) < 10 U/L (0-35); AST (SGOT) 16 U/L (14-36); Albumin 3.5 g/dl (3.5-5.0); Alkaline Phosphatase 40 U/L (38-126); Blood Urea Nitrogen 50 mg/dl (7-17); Calcium 9.3 mg/dl (8.4-10.2); Chloride 98 mmol/L (98-107); Estimated Creatinine Clearance 47 ml/min; Glucose 92 mg/dl (70-99); Potassium 4.0 mmol/L (3.5-5.1); Sodium 140 mmol/L (135-145); Total Protein 5.4 g/dl (6.3-8.2); eGFR > 60.00
[2025-03-10 07:36] LABS: Carbon Dioxide 41 mmol/L (22-30)
[2025-03-10] MEDS: PROTONIX 40 MG PO (09:04)
[2025-03-10] MEDS: ZOLOFT 75 MG PO (09:04)
[2025-03-10] MEDS: BYSTOLIC 5 MG PO (09:04)
[2025-03-10] MEDS: VIBRAMYCIN 100 MG PO ×2 (09:05→20:26)
[2025-03-10] MEDS: FARXIGA 10 MG PO (09:05)
[2025-03-10] MEDS: DALIRESP 500 MCG PO (09:05)
[2025-03-10] MEDS: ASPIR LOW (ENTERIC COATED) 81 MG PO (09:05)
[2025-03-10] MEDS: PEPCID 20 MG PO (09:05)
[2025-03-10] MEDS: DELTASONE 40 MG PO (09:05)
[2025-03-10] MEDS: BUMEX 0.5 MG PO (09:06)
--- NOTE | 2025-03-10 10:36 | CM ---
Addendum entered by Ginette Doyle RN 03/10/25 16:04:
Spoke with daughter Katie; provided update SNF was approved and [facility] can take her tomorrow. Daughter asked supervisor boat outfitting to see patient here tomorrow around noon.
Addendum entered by Ginette Doyle RN 03/10/25 15:52:
Continues with astral ventilator at night.
Message from Dr Sams P2P Appeal was completed.
Spoke with Sameer Purcell (ph [phone]); SNF is approved with start of care 03/10 through 03/15, NR 03/16. Auth # [id number].
Spoke with Marielos, s [facility]; auth info provided, they will confirm tomorrow that they can accept.
Plan contact [facility] tomorrow re; acceptance.
Original Note:
Patient with Dx COPD exacerbation, Multiple lung nodules, possible HF. OT Eval pending.
Message from Sameer Purcell (ph [phone]); re; request for [facility] for Rehab. Sameer [employer] Rec[employer]iter has intent to deny, saying patient doesn't need therapy 5 days/week and it can be provided at a lower level of care. Optional Peer to
Peer can be done today at phone [phone] option 2 by 4:30pm today.
Message sent to Dr Sams with request for P2P. He is asking for PT/OT to see the patient before P2P.
Spoke with Katie; provided update about denial with possible appeal today by , and that PT/OT will work with her today. Dtr says they may want to choose another Palliative Care agency that can see patient at both daughters' houses, as [facility] cannot - she will let me know if they choose another agency.
Plan follow up re; possible Peer to Peer Appeal for SNF rehab.
--- NOTE | 2025-03-10 10:51 | W.PN.PUL3 ---
Today's Communication / Plan
-
Continue nebulizer therapy-
Continue prednisone taper
Complete 5 days of doxycycline today for bronchitis
Continue oxygen supplementation-baseline
Continue astral ventilator at night
Avoid sedatives
Discharge planning
Sign off
Assessment
-
Assessment: 84-year-old female with a past medical history of end-stage COPD on home oxygen and chronic prednisone 10 mg daily, chronic hypoxic/hypercapnic respiratory failure with nocturnal NIV dependence, centrilobular/paraseptal emphysema, CAD
with history of [place] and robotic bypass (May 2019), history of melanoma on face + toe, history of SCC on forehead, history of pneumonia, hypertension, history of [place], osteoporosis, depression/anxiety, colonic polyps, and history of anemia who
presents with worsening SOB + fast heart rate. She is chronically on home oxygen, now on 3-3.5 L/min ATC. She uses NIV with sleep due to chronic hypercapnia, although has poor tolerance of this, only able to use it for couple hours per night.
About 3 days ago she began to feel short of breath and just general fatigue. She checks her vitals at home via a pulse oximeter and her heart rate has been as high as 100�110 and normally she is between 50�70. No recent sick contacts, and no
recent change in medications. She does also endorse chest congestion but difficulty bringing up any phlegm. In the ER she was afebrile with pulse rate 101, respiratory rate 20, BP 133/64 and saturating 97% on 3 L/min nasal cannula. Pertinent labs
showed normal WBC at 6.8, Hb 11.4, blood gas with pH 7.3, pCO2 77, pO2 72 and O2 saturation 95.8%, serum bicarbonate level 38, proBNP 1380, and COVID-19 antigen negative. Flu swab was also negative. CXR shows patchy parenchymal opacities in the
lower lobes, predominantly left lower lobe, concerning for pneumonia. In the ER she was given Decadron, DuoNebs, doxycycline, Zofran and Tylenol. She was admitted to the IMU under the hospitalist service and now Pulmonary service consulted for
additional management/recommendations.
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
of SCC on forehead, history of pneumonia, hypertension, history of [place], osteoporosis, depression/anxiety, colonic polyps, history of anemia
Impression:
#Acute COPD exacerbation
#Acute on chronic respiratory failure with hypoxia + hypercapnia (only mild respiratory acidosis)
#Metabolic alkalosis due to compensation from chronic hypercapnia
#Elevated proBNP
#Severe pulmonary hypertension (RVSP: 75 mmHg via echo in July 2024 at outside institution)
#Chronic HFpEF
#Abnormal TFTs with reduced TSH and normal free T4, likely due to euthyroid sick syndrome
#Class IV COPD on chronic prednisone 10 mg daily, Daliresp, Zithromax TID, Brovana + budesonide BID and Yupelri with prn DuoNebs
#Multiple lung nodules with largest 2.4 cm in left base - concerning for malignancy
#Former tobacco smoker ([id number] history, quit at age 50)
#Hypertension
#Hyperlipidemia
#Chronic anemia
Plan:
- Exertional dyspnea improved since admission on IV steroids.
No evidence for pneumonia on x-ray
No evidence for heart failure.
- Suspect COPD exacerbation possibly related to viral URI
- Clinically improved. Prednisone 40 mg will decrease by 10 mg every 72 hours to baseline.
- Continue with budesonide + DuoNebs; prn nebulized bronchodilators.(Home regimen)
- Continue with Daliresp
- No evidence for pneumonia on CAT scan.
- W negative procalcitonin 03/06/2025-discontinued antibiotics.
- May complete 5 days of doxycycline for bronchitis last day 03/10/2025.
- resume Zithromax TIW (QTc: 467 ms from admission EKG)-upon discharge.
-
Patient appears euvolemic:
Echocardiogram 03/07/2025: Normal LVEF. Normal biventricular size. Mild right atrial dilatation. Trace MR. Mild to moderate aortic stenosis. Mild TR with estimated pulmonary pressure 40 to 45 mmHg..
Pulmonary hypertension likely due to underlying advanced emphysema/COPD and chronic hypercapnic respiratory failure.
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 Kaplan, showing LVEF 65-70% with no regional WMA, with RV mild dilation with reduced RV systolic function, moderately dilated RA and severely elevated RVSP at 75 mmHg.
Pulmonary hypertension likely due to underlying COPD/emphysema.
-
Continue supplemental oxygen, titrating to maintain SpO2 88-95%
- At home she has been using between 2-3 L/min at rest, and 3-3.5 L/min with activity.
- She uses and ASTRAL ventilator for chronic hypercapnia
- mental status baseline. VBG suspect compensated hypercapnic respiratory failure.
- She does have multiple pulmonary nodules predominantly in the left base - concerning for malignancy.
Dr. Steve discussed with daughter and patient in detail 03/07/2025-unlikely that this patient will tolerate complication from biopsies or even therapy. They both agree, patient is very limited and has difficulty going to appointments. Will be an
ongoing discussion in the outpatient setting.
- Outside imaging at [facility] via CTA chest on 07/24/2024 does not mention any nodules in the report. Negative for pulmonary embolism. Ideally, we would review the images ourselves. Will ask the family to see if they can get a disc so that
we can review these images directly.
-
Incentive spirometer encouraged q1hr while awake
-
Monitor blood sugars particularly on high-dose of steroids.
-
Physical therapy/Occupational Therapy. Patient has deconditioning component.
- DVT ppx: LMWH
Code status: DNR/DNI-palliative care has been discussed with the patient in the past.
Agree with DC planning, discussed with CM. Working to get accepted at [facility].
More agreeable to palliative care, will refer in outpatient setting.
Patient already has follow-up arranged with Dr. Steve for 03/23/2025 at 9 AM (last visit 11/17/2024). Patient was encouraged to keep his appointment, especially given her abnormal CT chest findings with new lung nodules.
No additional pulmonary recommendations.
Waiting for placement.
Sign off
Data:
CTA Chest 03/06/2025:
1. No evidence of pulmonary embolism or thoracic aortic dissection.
2. Multiple lung nodules within the lower lung zones, measuring up to 2.4 cm in diameter. Nodules are highly concerning for bronchogenic or metastatic malignancy. Differential diagnosis includes rounded atelectasis. Consider PET/CT and/or follow-up
CT chest.
3. Severe emphysema.
4. Wall thickening of the distal esophagus, which may be related to gastroesophageal reflux or Reaves's esophagus.
5. Compression fractures of the T4 and T7 vertebral bodies, likely chronic.
Spirometry: 01/29/2024: Very severe COPD with postbronchodilator FEV1 0.23 L / 12% predicted. Also very severe restrictive lung defect with postbronchodilator FVC: 0.75 L / 29% predicted. Pre-bronchodilator efforts were not repeatable, and there
was not enough acceptable maneuvers during post-BD testing.
Outside Imaging - [place]
CTA chest 07/24/2024: Comparison to CXR on 07/17/2023: Suboptimal contrast opacification of pulmonary arteries. No definite segmental or subsegmental pulmonary artery embolus but incomplete evaluation. Enlarged main pulmonary artery measuring 3.9
cm. Severe emphysema. Diffuse interlobular septal thickening. Bibasilar airspace disease likely atelectasis. Moderate bilateral pleural effusions. Multilevel compression deformities of thoracic spine most likely chronic.
CT abdomen/pelvis 01/15/[address] abdomen/pelvis on 05/30/2017: Images of the lung bases reveal the presence of bullous emphysematous changes. Stable mild thickening of the appendix with no evidence for appendiceal inflammatory
changes.
Subjective Data
-
Date of Service:
Date of Service: March 10, 2025
Chief Complaint: Pulmonary Follow Up (Acute exacerbation of COPD/lung nodule)
Subjective:
Patient offers no new complaints
Discharge planning ongoing
Denies increased phlegm production.
Review of Systems
Cardiopulmonary: Dyspnea, Dyspnea on Exertion, Cough (Not significant) and Sputum Production (None)
Objective Data
Data Reviewed
Vital Signs / I&O / Oxygen:
Vital Signs
Temp Pulse Resp BP Pulse Ox
97.8 F 84 16 133/57 95
03/10/25 07:24 03/10/25 06:02 03/10/25 06:02 03/10/25 06:00 03/10/25 06:02
Intake and Output
03/09/25 03/10/25 03/11/25
06:59 06:59 06:59
Intake Total 240 / 240 480 / 480
Balance 240 / 240 480 / 480
SaO2 95
Nasal Cannula flow liters per 3
minute
Physical Exam
General: Comfortable
HEENT: Normocephalic
Cardiovascular: S1-S2
Respiratory: Non-Labored Respirations and Other (Prolonged expiratory phase bilaterally)
GI: Soft and Non Distended
Neurology: Awake, Alert and Oriented
Skin: Warm
Labs/Micro/Reports
Lab Data
03/10/25 05:46
03/10/25 05:46
--- NOTE | 2025-03-10 14:30 | W.PN.HOSP.TC ---
Today's Communication/Plan
-
azithro MWF starting tomorrow
Pred taper, 30mg tomorrow
cont NIV
dispo planning
Assessment / Plan
Assessment / Plan
Physical Exam
General: Other (84y F in mild distress due to dyspnea.)
HEENT: Moist mucous membranes and PERRLA
Respiratory: Other (Decreased BS bilaterally.no audible wheezing No rales / rhonchi.)
Cardiac: S1/S2, Regular Rhythm, Tachycardia and Murmur (II/ IVETTE)
GI: Soft, Non Tender, Non Distended and Normal Bowel Sounds
Musculoskeletal: No Clubbing, No Cyanosis and No Edema
Neuro: AO x 3
A/P: Patient is an 84y F with PMH significant for COPD, ASCVD and CHF who presents to ED complaining of increased SOB for the past 3 days.
Acute on Chronic Hypoxemic Respiratory Failure
Acute on Chronic Hypercapnic Respiratory Failure
Advanced Stage COPD, GOLD Stage IV
COPD exacerbation
-mentating well despite elevated CO2 on VBG; more than likely lives at higher Co2 level
-recently on 3.5L O2 at home
?Underlying metastatic malignancy- i suspect this is triggering response
- Admit for further evaluation and treatment.
- Treat for COPD +/- atypical infection with IV steroids, nebs, abx, etc.
- BiPAP at HS as tolerated.
-DC ceftriaxone, no evidence of infection
- Continue Doxy x 5 days; Restart azithromycin 3 times per week after completing doxycycline.
-Solumedrol - Prednisone taper decrease by 10 mg every 72 hours to baseline
- Continue usual roflumilast and inhaled medications.
- Pulmonary evaluation for additional recommendations.
-Incentive Flaco, Acapella
-Chronically on 3.5L o2; assess with ambulation daily; Goal o2 >88%
#Multiple lung nodules with largest 2.4 cm in left base - concerning for malignancy
-Poor performance candidate with End stage COPD for further work up or intervention
-Decision will be made outpatient for further work up if desired/change trajectory of clinical status - patient leaning towards not performing bx due to risks and questionable benefit
#Severe Pulmonary Htn
- No evidence on exam of volume overload.
- Continue current regimen of bumetanide and Farxiga without changes.
- Follow I/Os, daily weights, etc.
- Check Echo: EF 65-70%;
ASCVD
- L sided chest discomfort / 'rib pain' reported by patient.
- Suspect possible 2/2 to ?malignancy and pleuritic chest pain
- EKG without evident ischemia. Initial troponin undetectable.
- Continue ASA uninterrupted. Continue statin.
Anxiety / Depression
- Stable. Continue sertraline.
DVT Prophylaxis: Lovenox
Code Status: DNR
Anticipated Discharge: 24 - 48 hours
Subjective/Interval History
-
Date of Service: March 10, 2025
no acute events overnight
Objective Data
-
Labs:
Laboratory Results
03/10/25
05:46
WBC 6.7
Hgb 10.4 L
Hct 34.4 L
Plt Count 213
Sodium 140
Potassium 4.0
Chloride 98
Carbon Dioxide 41 H
BUN 50 H
Creatinine 0.8
Glucose 92
Calcium 9.3
Total Bilirubin 0.4
AST 16
ALT < 10
Alkaline Phosphatase 40
Vital Signs:
Vital Signs
Temp Pulse Resp BP Pulse Ox
97.6 F 82 22 110/76 96
03/10/25 11:00 03/10/25 12:00 03/10/25 12:00 03/10/25 12:00 03/10/25 13:55
I&O
03/09/25 03/10/25 03/11/25
06:59 06:59 06:59
Intake Total 240 / 240 480 / 480
Balance 240 / 240 480 / 480
Review of Systems
-
History Source: Patient
All other systems: Not reviewed unless documented
Data Reviewed
-
Total Time Spent with Patient (in minutes): 41
CT Scan: Report Reviewed by me
Labs: Labs Reviewed by me
[2025-03-10] MEDS: CRESTOR 10 MG PO (18:11)
[2025-03-10] MEDS: LOVENOX 40 MG SC (18:11)
[2025-03-10] MEDS: TYLENOL 650 MG PO (19:36)
[2025-03-10] MEDS: ATIVAN 0.5 MG PO (20:26)
[2025-03-10] MEDS: MELATONIN 1.5 MG PO (21:05)
--- NOTE | 2025-03-10 23:34 | PTCARENOTE ---
Caring for pt overnight. aaox3, pleasant. NSR PVC. Remains 3LNC, own cpap HS with O2. PO abx. ativan & melatonin prn HS. Denies pain or sob. No other issues. will monitor.
[2025-03-11] VITALS (7 sets, daily range): BP systolic 112–133; BP diastolic 48–67; BMI 25.3; BMI 24.5
[2025-03-11 05:35] LABS: Hematocrit 34.6 % (37.0-47.0); Hemoglobin 10.3 g/dL (12.0-16.0); Mean Corp Hgb Conc. 29.8 g/dL (33.0-37.0); Mean Corpuscular Volume 88.3 fL (81.0-99.0); Platelet Count 194 10^3/uL (130-400); Red Cell Dist. Width 18.1 % (11.5-14.5)
[2025-03-11 06:07] LABS: ALT (SGPT) 10 U/L (0-35); AST (SGOT) 16 U/L (14-36); Albumin 3.4 g/dl (3.5-5.0); Alkaline Phosphatase 38 U/L (38-126); Blood Urea Nitrogen 51 mg/dl (7-17); Calcium 9.2 mg/dl (8.4-10.2); Chloride 97 mmol/L (98-107); Estimated Creatinine Clearance 47 ml/min; Glucose 93 mg/dl (70-99); Potassium 3.8 mmol/L (3.5-5.1); Sodium 139 mmol/L (135-145); Total Protein 5.5 g/dl (6.3-8.2); eGFR > 60.00
[2025-03-11 06:19] LABS: Carbon Dioxide 38 mmol/L (22-30)
[2025-03-11] MEDS: DUONEB 3 ML INH ×2 (07:20→10:57)
[2025-03-11] MEDS: PULMICORT 0.5 MG INH (07:20)
[2025-03-11] MEDS: ASPIR LOW (ENTERIC COATED) 81 MG PO (08:20)
[2025-03-11] MEDS: DELTASONE 30 MG PO (08:20)
[2025-03-11] MEDS: PROTONIX 40 MG PO (08:20)
[2025-03-11] MEDS: ZOLOFT 75 MG PO (08:20)
[2025-03-11] MEDS: DALIRESP 500 MCG PO (08:20)
[2025-03-11] MEDS: FARXIGA 10 MG PO (08:21)
[2025-03-11] MEDS: BUMEX 0.5 MG PO (08:21)
[2025-03-11] MEDS: BYSTOLIC 5 MG PO (08:21)
[2025-03-11] MEDS: PEPCID 20 MG PO (08:22)
--- NOTE | 2025-03-11 08:38 | PN.CDI ---
CDI
- -
CDI:
Physician Documentation Request
Admit Date: 03/06/25 03:13
Dear Doctor Flaquita,
Patient admitted for respiratory failure.
Clinical panel nursing documentation wound care
03/09/25
20:53
Dressing appearance [Nose] Dry/intact
Is this a pressure-related injury? [Nose] Yes
Pressure injury stage [Nose] Stage 1
Pressure ulcer location comment [Nose] nostril r/t
nasal cannula
Physician documentation of the type and location of wounds is required for compliant documentation. Based on the above clinical findings and your assessment, please provide the following in your progress note:
1. Location of the ulcer/wound, including laterality.
2. Type (etiology) of ulcer/wound:
- Diabetic ulcer
- Arterial (ischemic) ulcer
- Traumatic wound
- Venous stasis ulcer
- Pressure (decubitus) ulcer
- Non-healing surgical wound
- Other
- Unable to determine
3. For a non-pressure ulcer, please indicate the depth/severity:
- Limited to the breakdown of skin
- With fat layer exposed
- With necrosis of muscle
- With necrosis of bone
- Other
- Unable to determine
4. If a pressure ulcer, please also include the stage* of the ulcer:
- Stage 1 - Skin intact, non-blanchable redness
- Stage 2 - Partial thickness loss of dermis, includes intact or open blister
- Stage 3 - Full thickness tissue not including bone, tendon or muscle
- Stage 4 - Full thickness tissue loss, including exposed bone, tendon or muscle
- Unstageable - Full thickness loss in which the base of the ulcer is covered by slough (yellow, shipman, capps, green or brown) and/or eschar (shipman, brown or black) in the wound bed.
- Unable to determine
Use of terms such as suspected, likely, concern for, or probable (associated with a specific diagnosis that is being evaluated, monitored, or treated as if it exists) are acceptable and can be coded in the inpatient setting, when documented at the
time of discharge.
Thank you,
Irene Olmos RN, BSN
CDI Specialist
Available via [employer] text
Please use your independent medical judgment in providing your response.
*Source: National Pressure Ulcer Advisory Panel (NPUAP)
--- NOTE | 2025-03-11 11:38 | W.PN.HOSP.TC ---
Addendum entered and electronically signed by Jim Sams MD 03/13/25 15:31:
[id number]
Addendum entered and electronically signed by Jim Sams MD 03/11/25 15:55:
Pressure injury stage [Nose] Stage 1
Original Note:
Today's Communication/Plan
-
azithro MWF
Pred taper, drop by 10 mg every 72 hours until back to 10 mg daily baseline
cont NIV, at night and naps
Avoid sedatives
Continue nebulizer therapy
dispo planning
Assessment / Plan
Assessment / Plan
Physical Exam
General: Other (84y F in mild distress due to dyspnea.)
HEENT: Moist mucous membranes and PERRLA
Respiratory: Other (Decreased BS bilaterally.no audible wheezing No rales / rhonchi.)
Cardiac: S1/S2, Regular Rhythm, Tachycardia and Murmur (II/ IVETTE)
GI: Soft, Non Tender, Non Distended and Normal Bowel Sounds
Musculoskeletal: No Clubbing, No Cyanosis and No Edema
Neuro: AO x 3
A/P: Patient is an 84y F with PMH significant for COPD, ASCVD and CHF who presents to ED complaining of increased SOB for the past 3 days.
Acute on Chronic Hypoxemic Respiratory Failure
Acute on Chronic Hypercapnic Respiratory Failure
Advanced Stage COPD, GOLD Stage IV
COPD exacerbation
-mentating well despite elevated CO2 on VBG; more than likely lives at higher Co2 level
-recently on 3.5L O2 at home
?Underlying metastatic malignancy- i suspect this is triggering response
- Admit for further evaluation and treatment.
- Treat for COPD +/- atypical infection with IV steroids, nebs, abx, etc.
- BiPAP at HS as tolerated.
-DC ceftriaxone, no evidence of infection
- Continue Doxy x 5 days; Restart azithromycin 3 times per week now that completed 5 day doxycycline course
-Solumedrol - Prednisone taper decrease by 10 mg every 72 hours to baseline
- Continue usual roflumilast and inhaled medications.
- Pulmonary evaluation for additional recommendations.
-Incentive Flaco, Acapella
-Chronically on 3.5L o2; assess with ambulation daily; Goal o2 >88%
#Multiple lung nodules with largest 2.4 cm in left base - concerning for malignancy
-Poor performance candidate with End stage COPD for further work up or intervention
-Decision will be made outpatient for further work up if desired/change trajectory of clinical status - patient leaning towards not performing bx due to risks and questionable benefit
#Severe Pulmonary Htn
- No evidence on exam of volume overload.
- Continue current regimen of bumetanide and Farxiga without changes.
- Follow I/Os, daily weights, etc.
- Check Echo: EF 65-70%;
ASCVD
- L sided chest discomfort / 'rib pain' reported by patient.
- Suspect possible 2/2 to ?malignancy and pleuritic chest pain
- EKG without evident ischemia. Initial troponin undetectable.
- Continue ASA uninterrupted. Continue statin.
Anxiety / Depression
- Stable. Continue sertraline.
DVT Prophylaxis: Lovenox
Code Status: DNR
More than 30 minutes spent in discharge including
Final examination of the patient
Summarizing hospital stay
Instructions for continuing care to all relevant caregivers
Preparation of discharge records, prescriptions, and referral forms
Total time spent (in minutes): 37
Anticipated Discharge: Today
Subjective/Interval History
-
Date of Service: March 11, 2025
no acute events overnight
Objective Data
-
Labs:
Laboratory Results
03/11/25
05:21
WBC 6.4
Hgb 10.3 L
Hct 34.6 L
Plt Count 194
Sodium 139
Potassium 3.8
Chloride 97 L
Carbon Dioxide 38 H
BUN 51 H
Creatinine 0.8
Glucose 93
Calcium 9.2
Total Bilirubin 0.4
AST 16
ALT 10
Alkaline Phosphatase 38
Vital Signs:
Vital Signs
Temp Pulse Resp BP Pulse Ox
97.9 F 82 24 133/55 99
03/11/25 11:21 03/11/25 10:59 03/11/25 10:59 03/11/25 10:00 03/11/25 10:59
I&O
03/10/25 03/11/25 03/12/25
06:59 06:59 06:59
Intake Total 480 / 480
Balance 480 / 480
Review of Systems
-
History Source: Patient
All other systems: Not reviewed unless documented
Physical Exam
-
General: No Apparent Distress
HEENT: Normocephalic and Atraumatic
Respiratory: Negative Wheezes
Cardiac: Regular Rhythm and S1/S2
GI: Soft
Neuro: AO x 3
Psych: Calm
--- NOTE | 2025-03-11 11:56 | W.DS.TRANS ---
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
-
Discharge Instructions:
Discharge Diagnosis/Procedures Acute on Chronic Hypoxemic Respiratory Failure
Acute on Chronic Hypercapnic Respiratory Failure
Advanced Stage COPD, GOLD Stage IV
COPD exacerbation
Diet Low Cholesterol,Low Fat
Blood Work cbc and cmp in 1 week with pcp
Instructions:
Stand-Alone Forms:
Changes to Home Medications: Yes
Discharge Medications:
DC Medications w/original date entered in [employer]
nebivolol 5 mg tablet (Bystolic) 5 mg PO DAILY Blood Pressure 04/20/20
roflumilast 500 mcg tablet (Daliresp) 500 mcg PO DAILY Lung/Breathing Issues 04/20/20
rosuvastatin 10 mg tablet 10 mg PO QPM High Cholesterol 04/20/20
aspirin 81 mg tablet,delayed release 81 mg PO DAILY Blood Clot Prevention/Tx 01/07/24
bumetanide 1 mg tablet 0.5 mg PO DAILY Fluid Retention/Swelling 01/07/24
cyanocobalamin (vitamin B-12) 2,500 mcg sublingual tablet (Vitamin B-12) 2,500 mcg PO DAILY Supplement 01/07/24
melatonin 1.5 mg PO HS Sleep 01/07/24
pantoprazole 40 mg tablet,delayed release 40 mg PO DAILY #30 tabs 01/12/24
albuterol sulfate 2.5 mg/3 mL (0.083 %) solution for nebulization 2.5 mg inhalation QID Lung/Breathing Issues 03/06/25
budesonide 0.5 mg/2 mL suspension for nebulization 0.5 mg inhalation BID Lung/Breathing Issues 03/06/25
dapagliflozin propanediol 10 mg tablet (Farxiga) 10 mg PO DAILY Diabetes 03/06/25
ferrous sulfate 324 mg (65 mg iron) tablet,delayed release 324 mg PO Q48H Supplement 03/06/25
formoterol fumarate 20 mcg/2 mL solution for nebulization 2 ml inhalation BID Lung/Breathing Issues 03/06/25
prednisone 10 mg tablet 10 mg PO DAILY Anti-Inflammatory 03/06/25
Held on 03/11/25. Instructions: Resume on 03/17/25. restart once steroids tapered back to home dose (10mg daily)
sertraline 50 mg tablet 75 mg PO DAILY Mental Health/Anxiety 03/06/25
azithromycin 250 mg tablet 500 mg (2 x 250 mg) PO MOWEFR #0 tabs 03/11/25
prednisone 10 mg tablet 30 mg (3 x 10 mg) PO DAILY #0 tabs 03/11/25
Home Medication Changes
azithromycin 250 mg tablet 500 mg (2 x 250 mg) PO MOWEFR #0 tabs 03/11/25
prednisone 10 mg tablet 30 mg (3 x 10 mg) PO DAILY #0 tabs 03/11/25
Pending Results: No
[2025-03-11] MEDS: ZITHROMAX 500 MG PO (13:38)
--- NOTE | 2025-03-11 13:42 | PTCARENOTE ---
Patient AOx3. ILIAMNA. 3L NC. NSR with PVC's on monitor. Assist x1 with RW when OOB. Tolerating oral diet. Call srivastava within reach, bed in lowest position, and bed of wheels locked.
--- NOTE | 2025-03-11 14:24 | PTCARENOTE ---
Patient d/c via stretcher by Acute [facility] to [facility]. IV removed. Patient belongings sent with patient.
== END 2025-03-11 14:20 | DRG 190 ==
LOC: IMU 03:13
PROVIDERS: Emergency Medicine; Physician Assistant; ADMITTING PHYSICIAN Hospitalist; ATTENDING PHYSICIAN Internal Medicine; CONSULT PHYSICIAN Internal Medicine Critical Care Medicine; EMERGENCY PHYSICIAN Emergency Medicine; FAMILY PHYSICIAN Family Medicine
PROC: 5A09357 Assistance with Respiratory Ventilation, Less than 24 Consecutive Hours, Continuous Positive Airway Pressure (ICD-10-PCS; 2025-03-06)
DX: J44.1 Chronic obstructive pulmonary disease with (acute) exacerbation (principal); J96.21 Acute and chronic respiratory failure with hypoxia; J96.22 Acute and chronic respiratory failure with hypercapnia; E87.4 Mixed disorder of acid-base balance; I50.32 Chronic diastolic (congestive) heart failure; Z99.81 Dependence on supplemental oxygen; I25.10 Atherosclerotic heart disease of native coronary artery without angina pectoris; F32.A Depression, unspecified; F41.9 Anxiety disorder, unspecified; R91.8 Other nonspecific abnormal finding of lung field; I11.0 Hypertensive heart disease with heart failure; J43.8 Other emphysema; Z66 Do not resuscitate; D64.9 Anemia, unspecified; L89.891 Pressure ulcer of other site, stage 1; M81.0 Age-related osteoporosis without current pathological fracture; I27.20 Pulmonary hypertension, unspecified; E78.00 Pure hypercholesterolemia, unspecified; I25.2 Old myocardial infarction; Z87.01 Personal history of pneumonia (recurrent); Z11.52 Encounter for screening for COVID-19; Z85.820 Personal history of malignant melanoma of skin; Z95.5 Presence of coronary angioplasty implant and graft; Z95.1 Presence of aortocoronary bypass graft; Z87.891 Personal history of nicotine dependence; Z79.52 Long term (current) use of systemic steroids; Z79.82 Long term (current) use of aspirin
CPT/HCPCS: 71046; 71275; 80048; 80053; 82805; 83036; 83735; 83880; 84100; 84145; 84439; 84443; 84484; 85025; 85027; 87502; 87811; 93005; 93306; 94640; 94660; 94760; 96365; 96375; 97110; 97116; 97163; 97166; 97530; 99285; Q9967

== ENCOUNTER → 2025-03-30 10:16 | Outpatient (REF) | payer OTHER, SELFPAY ==
[2025-03-30 10:57] LABS: Hematocrit 36.7 % (37.0-47.0); Hemoglobin 10.5 g/dL (12.0-16.0); Mean Corp Hgb Conc. 28.6 g/dL (33.0-37.0); Mean Corpuscular Volume 92.7 fL (81.0-99.0); Platelet Count 181 10^3/uL (130-400); Red Cell Dist. Width 17.3 % (11.5-14.5)
[2025-03-30 12:08] LABS: Iron 43 ug/dl (37-170)
[2025-03-30 12:17] LABS: Total Iron Binding Capacity 320 ug/dl (265-497)
[2025-03-30 12:40] LABS: Ferritin 39.4 ng/ml (11.1-264.0)
== END ==
LOC: OIDL 10:16
PROVIDERS: ATTENDING PHYSICIAN Internal Medicine Hematology & Oncology
DX: E83.19 Other disorders of iron metabolism (principal); D64.9 Anemia, unspecified; D63.8 Anemia in other chronic diseases classified elsewhere; J44.9 Chronic obstructive pulmonary disease, unspecified; I13.0 Hypertensive heart and chronic kidney disease with heart failure and stage 1 through stage 4 chronic kidney disease, or unspecified chronic kidney disease
CPT/HCPCS: 36415; 82728; 83540; 83550; 85025